=== PATIENT | female | born 1950 | race Caucasian/White ===

== ENCOUNTER 2024-08-17 21:01 | Inpatient (IN) | payer MEDICARE, SELFPAY ==
[2024-08-17 21:35] VITALS: BP 132/84; PULSE 72; RESP 16; TEMP 36.6; O2SAT 95
--- NOTE | 2024-08-17 22:19 | PC.ADMIT ---
PT IS A 74 YEAR OLD, CHINESE SPEAKING FEMALE ADMITTED TO [facility] FROM [facility]. PT WAS BROUGHT TO [facility] BY HER SON, VIKI WHO IS HER HEALTHCARE PROXY (NOT INVOKED AT THIS TIME). PT REPORTS THAT SHE WAS AT HOME WITH HER SON AND GRANDCHILDREN WHEN SHE BENT DOWN AND WAS TRYING TO PICK THINGS UP OFF THE GROUND. WHEN HER SON ASKED WHAT SHE WAS DOING, SHE STATED, THERES MICE AND CATS EVERYWHERE. IM TRYING TO GET RID OF THEM . PT REPORTS THAT SHE DID NOT BELIEVE HER SON/GRANDCHILDREN WHEN THEY TOLD HER THESE WERE NOT REAL BUT AGREED TO GO TO THE HOSPITAL ANYWAYS. PT REPORTS WHEN SHE WAS PUT INTO THE PSYCHIATRIC EMERGENCY POD AT [place] SHE BEGAN SEEING THOUSANDS OF LITTLE MICE ON THE FLOOR WELL DOGS AND [employer]ARS WHICH IS WHEN SHE DECIDED SHE MAY BE EXPERIENCING VISUAL HALLUCINATIONS. PT REPORTS HER FEAR INCREASED WHEN SHE STARTED SEEING ANOTHER PATIENTS BODY DISAPPEAR AT VARIOUS TIMES. PT REPORTS THAT OVER THE PAST 6-7 YEARS SHE HAS HAD EXPERIENCES THAT SHE IS UNCERTAIN IF THEY ARE REAL SUCH SEEING PEOPLE HAVING A CONVERSATION OR BELIEVING SHE SEES A BIRD/ANIMAL/PERSON THEN LOOKS AGAIN AND THEY ARE GONE BUT REPORTS THIS IS THE FIRST TIME THESE VISUAL HALLUCINATIONS HAVE BEEN TO THIS EXTENT. PT REPORTS THAT SHE HEARS CONSTANT MUSIC IN HER HEAD. SHE LIVES WITH HER SON AND GRANDCHILDREN BUT REPORTS INCREASED DIFFICULTY WITH DAILY TASKS DUE TO PAIN. PT REPORTS LOWER BACK PAIN THAT CAUSES NUMBNESS IN HER UPPER LEGS, CAUSING HER TO FALL MULTIPLE TIMES AT HOME. PT REPORTS THAT SHE GETS FREQUENT DIZZY SPELLS. PT HAS A HX OF DIABETES. CURRENTLY ON ANTIDEPRESSANTS FROM PCP BUT [facility]. NO PSYCH PROVIDER OR THERAPIST. REPORTS PASSIVE SI AT TIMES. NO HI. PT FEELS SAFE ON THE UNIT AND REPORTS SHE IS JUST HOPING THIS IS FROM THE UTI . PT IS NOT CURRENTLY ON ANTIBIOTICS FOR HER UTI BUT HAS A HX OF SEVERE UTIS WITH NO ASSOCIATED PSYCH SYMPTOMS. REPORTS POOR SLEEP AT NIGHT, SLEEPING APPROXIMATELY 2-5 HOURS PER NIGHT.
[2024-08-17] MEDS: Insulin Glargine,Hum.rec.anlog 100 UNIT/ML 10 ML VIAL 40 UNIT SUBCUT (22:54)
[2024-08-17 22:55] LABS: Glucose, Whole Blood 128 mg/dL (60-115)
[2024-08-18 07:30] LABS: Glucose, Whole Blood 77 mg/dL (60-115)
[2024-08-18 08:00] VITALS: BP 167/70; PULSE 72; RESP 16; TEMP 36.5; O2SAT 96
[2024-08-18 08:11] LABS: Hemoglobin A1C 165.9677 umol/L; Total Hemoglobin (HGBA1C) 2948.4803 umol/L
--- NOTE | 2024-08-18 08:13 | P.CONHOSP_ITS ---
History of Present Illness Data of Consult Service Date: 08/18/24 Primary Care Provider: Nonstaff Physician HPI Reason for consult: Medical H&P 24-year-old female with a past medical history of hypertension hyperlipidemia, insulin-dependent diabetes, depression, and chronic lower back pain. She was admitted to [facility] after increase visual and auditory hallucination with the past several weeks and unwitnessed fall. Patient was sent to the hospital after she was found on the floor, reports that she seeing kittens on the floor trying to pick them up. In the ED her head CT and CT spine demonstrated no acute findings. Her TSH was slightly elevated at 4.96. She had no anemia, no leukocytosis, UA negative. No metabolic abnormalities. I am she is awake and alert, denies any shortness of breath or chest pain. Reports that she has left last evening, ate breakfast. Her vitals are stable. Review of Systems Review of Systems: Denies any shortness of breath, chest pain, dizziness, lightheadedness, abdominal pain or discomfort, nausea vomiting or diarrhea PMFSH Social History Household Members: Children Household Members Other:: son and grandchildren Housing: House Do you presently have visiting nurse or other home services: No Patient Tobacco Use Status: Never used Tobacco Currently Displaying Signs/Symptoms of Drug Intoxication Withdrawal: No Have you been hit, kicked, punched, or otherwise hurt by someone within the past year? If so, by whom?: No Do you feel safe in your current relationship?: No Current Relationship Is there a partner from a previous relationship who is making you feel unsafe now?: No Are you made to feel afraid or neglected: No Advance Directives: Yes (health care proxy, stef la. not invoked.) Advance Directives Information Provided: No Advance Directives on File: No Do you have thoughts of harming others: None Do you have a plan to hurt others: No Plan Recently lost weight without trying: No Eating poorly because of decreased appetite: No Nutrition Risks: No Nutritional Risk Patient : No : No Poor oral hygiene: No Meds Allergies Allergy/AdvReac Type Severity Reaction Status Date / Time Penicillins Allergy Unknown Unknown Verified 08/17/24 19:55 amitriptyline Allergy Unknown Verified 08/17/24 21:18 Active Medications: Current Medications Acetaminophen (Acetaminophen 325 Mg Tablet) 650 mg PO Q6H PRN PRN Reason: Headache/Pain, Scale 1-10 Al Hydroxide/Mg Hydroxide (Magnesium Hydrox/Alum Hydrox 30 Ml Oral.Susp) 30 ml PO Q6H PRN PRN Reason: Heartburn/Nausea Amlodipine Besylate (Amlodipine Besylate 5 Mg Tablet) 5 mg PO DAILY [facility]; Protocol Atorvastatin Calcium (Atorvastatin Calcium 20 Mg Tablet) 20 mg PO DAILY [facility] Bupropion HCl (Bupropion Hcl Xl 150 Mg Tab.Er.24h) 150 mg PO BID [facility] Gabapentin (Gabapentin 300 Mg Capsule) 300 mg PO TID [facility] Insulin Glargine (Insulin Glargine,Hum.Rec.Anlog 100 Unit/Ml 10 Ml Vial) 40 unit SUBCUT BEDTIME YAZMIN Last Admin: 08/17/24 22:54 Dose: 40 unit Magnesium Hydroxide (Milk Of Magnesia 30 Ml Oral.Susp) 30 ml PO DAILY PRN PRN Reason: Constipation Metoprolol Succinate (Metoprolol Succinate Er 100 Mg Tab.Er.24h) 100 mg PO DAILY [facility]; Protocol Temazepam (Temazepam 15 Mg Capsule) 30 mg PO BEDTIME PRN PRN Reason: insomnia Last Admin: 08/17/24 22:54 Dose: 30 mg Trazodone HCl (Trazodone Hcl 50 Mg Tablet) 50 mg PO BEDTIME MRX1 PRN PRN Reason: Insomnia Venlafaxine HCl (Venlafaxine Hcl Er 150 Mg Cap.Er.24h) 150 mg PO DAILY [facility] Home Medications ?Medication ?Instructions ?Recorded ?Confirmed ?Last Taken ?Type amlodipine 5 mg tablet 5 mg PO DAILY 08/17/2408/1708/16/24 History atorvastatin 20 mg tablet 20 mg PO DAILY 08/17/24 0704/1208/16/24 History bupropion HCl 150 mg tablet,12 hr 150 mg PO BID 08/17/24 08/16/24 History sustained-release gabapentin 300 mg capsule 300 mg PO TID 08/17/2408/1708/16/24 History insulin glargine 100 unit/mL (3 40 unit subcut BEDTIME 08/17/24 08/17/24 08/16/24 History mL) subcutaneous pen (Lantus Solostar U-100 Insulin) metoprolol succinate 100 mg 100 mg PO DAILY 08/17/24 0 08/17/24 08/16/24 History tablet,extended release 24 hr triazolam 0.25 mg tablet 0.5 mg PO BEDTIME PRN Insomn ia 08/17/24 08/17/24 08/16/24 History venlafaxine 150 mg 150 mg PO DAILY 08/17/2404/1208/16/24 History capsule,extended release 24 hr Physical Exam Vital Signs and Narrative: Vital Signs: Last Vital Signs Temp 97.9 F 08/17/24 21:35 Pulse 72 08/17/24 21:35 Resp 16 08/17/24 21:35 BP 132/84 08/17/24 21:35 Pulse Ox 95 08/17/24 21:35 O2 Del Method Room Air 08/17/24 21:35 Alert and oriented X3, able to give good history. Neuro: CN II-X11 intact, no deficits, visual acuity intact EYES: PERRLA, EOM intact ENT: Hearing intact, lips moist. Cardiac: S1 S2 RRR, No ectopy Pulmonary: lungs clear to auscultation, No increased WOB. Abdominal: BS active in all 4 quadrants, no guarding or tenderness. Obese abdomen MSK: Strength 5/5 upper and lower extremities : Deferred Extremities: No edema in lower extremities. Psych: mood stable, Quiet and cooperative. Skin: Warm and dry, Intact Results Labs Labs: Laboratory Results - last 24 hr 08/17/24 08/18/24 08/18/24 22:48 07:23 07:26 POC Glucose 128 H 77 Estimat Average Glucose 163 Hemoglobin A1c % 7.3 H Assessment and Plan (1) HTN (hypertension): Status: Acute Plan 74-year-old female with past medical history of depression, hyperlipidemia, hypertension, chronic low back pain, insulin-dependent type 2 diabetes admitted to [facility] after she experienced visual auditory hallucinations. Depression/visual and auditory hallucination Cleared for medical admission Plan per psychiatric team Hypertension/hyperlipidemia Continue Norvasc, Lipitor, and metoprolol 100 mg extended release. Blood pressure is under goal Continue to monitor blood pressures and adjust medications as needed Chronic low back pain Continue gabapentin Insulin-dependent type 2 diabetes Continue Lantus Recent A1c 7.3. Lipid panel within normal limits. A1c within acceptable range, will continue same regime Thank you for allowing me to participate in the care of this patient. Will follow as needed. Please reconsult of any acute concerns or issues arise
[2024-08-18 08:14] LABS: Cholesterol 123 mg/dL (<200); HDL Cholesterol 43 mg/dL (>40); Magnesium 2.1 mg/dL (1.6-2.6); Triglycerides 95 mg/dL (<150)
[2024-08-18 08:33] LABS: Free T4 (Free Thyroxine) 1.01 ng/dL (0.71-1.85); Thyroid Stimulating Hormone 3.12 uIU/mL (0.32-4.0)
[2024-08-18 08:47] LABS: Folate 8.5 ng/mL (> or = 4.0); Vitamin B12 208 pg/mL (200-900)
[2024-08-18] MEDS: Metoprolol Succinate ER 100 MG TAB.ER.24H PO (09:17)
[2024-08-18] MEDS: buPROPion HCl XL 150 MG TAB.ER.24H PO ×2 (09:17→20:29)
[2024-08-18] MEDS: Venlafaxine HCl ER 150 MG CAP.ER.24H PO (09:17)
--- NOTE | 2024-08-18 10:09 | HO.PSYADMNOT ---
HPI Date of Service: 08/18/24 Chief Complaint: Delusional Disorder; Depression Unspecified Sources of Information: patient interviewed, chart reviewed and crisis/core team assessment reviewed HPI Subjective Notes: Conditional Voluntary and 3 Day Narrative: Patient is a 74-year-old female with history of AVH who presents for worsening visual hallucinations causing distress. Patient reports that chronically, for the past 5 or so years, she hears music all the time which can be ?bothersome and makes it hard for her to concentrate. For the same duration, Patient also sees various people doing things however this does not bother her and she knows it is just her mind playing tricks on her, that it is not real. This past week, patient had additional hallucinations and says she started seeing kittens in the house even though they do not have a CAT; she then started seeing rats but small ones and dogs that would expand in size. She called in her son who lives with her who said there at all however she did not believe him because she could see 2000 rats-little ones... He wanted her to go to the hospital because he said I was not making sense..and he was worried i had a UTI... (patient endorses increased urinary frequency and urgency and said today she did urinate on herself on the way to the bathroom; denies any urinary discomfort). At the hospital, she continued to see animals but was comforted when staff there said it was not true and she started to agree that perhaps they were hallucinations. Patient said she stopped seeing animals but then at the hospital, in her room saw a girl in my room, talking on the phone and part of her body started to disappear... Than half of her body came back... She was crying on the phone and I thought it was my fault that the girl was gone.. However she said staff again helped her realize this was just her mind playing tricks on her. Patient says that she would like medication if it would help her stop hearing music all the time; she denies any active SI but says sometimes she gets depressed missing her and will sometimes wish she were , though she says this feeling is short-lived. Past Psychiatric History: Denies any history of psychiatric admissions Medical Evaluation Reviewed: Yes (Discussed with hospitalist MIA about starting antibiotics empirically given that patient is symptomatic for UTI, while labs are processing) [facility] Medical History (Updated 08/18/24 @ 16:55 by Sebastian Mejia MD) Depression Hallucinations Family History: Defer Social History: Patient lives in her own home; her son and his 2 kids live with her and are supportive Patient's in 2018 and she continues to miss him Substance History: Deferred Trauma History: Deferred Diagnostics Vital Signs (24Hr): Vital Signs - 24 hr 08/17/24 21:35 Temperature 97.9 F Pulse Rate 72 Respiratory Rate 16 Blood Pressure 132/84 Pulse Oximetry 95 Oxygen Delivery Method Room Air Labs Labs: Laboratory Results - last 48 hr 08/17/24 08/18/24 08/18/24 22:48 07:22 07:23 POC Glucose 128 H Estimat Average Glucose 163 Hemoglobin A1c % 7.3 H Magnesium 2.1 Triglycerides 95 Cholesterol 123 LDL Cholesterol, Calc 61 HDL Cholesterol 43 Vitamin B12 208 Folate 8.5 TSH 3.12 Free T4 1.01 08/18/24 07:26 POC Glucose 77 Estimat Average Glucose Hemoglobin A1c % Magnesium Triglycerides Cholesterol LDL Cholesterol, Calc HDL Cholesterol Vitamin B12 Folate TSH Free T4 Meds/Allergies Meds Home Medications ?Medication ?Instructions ?Recorded ?Confirmed ?Type amlodipine 5 mg tablet 5 mg PO DAILY 08/17/24 08/17/24 History atorvastatin 20 mg tablet 20 mg PO DAILY 08/17/24 08/17/24 History bupropion HCl 150 mg tablet,12 hr 150 mg PO BID 08/17/24 08/17/24 History sustained-release gabapentin 300 mg capsule 300 mg PO TID 08/17/24 08/17/24 History insulin glargine 100 unit/mL (3 40 unit subcut BEDTIME 08/17/24 08/17/24 History mL) subcutaneous pen (Lantus Solostar U-100 Insulin) metoprolol succinate 100 mg 100 mg PO DAILY 08/17/24 08/17/24 History tablet,extended release 24 hr triazolam 0.25 mg tablet 0.5 mg PO BEDTIME PRN Insomnia 08/17/24 08/17/24 History venlafaxine 150 mg 150 mg PO DAILY 08/17/24 08/17/24 History capsule,extended release 24 hr Allergies Allergies Allergy/AdvReac Type Severity Reaction Status Date / Time Penicillins Allergy Unknown Unknown Verified 08/17/24 19:55 amitriptyline Allergy Unknown Verified 08/17/24 21:18 Mental Status Exam Mental Status Exam Narrative: Pt is alert and oriented; behavior is cooperative, friendly and calm; patient is not in distress; dressed in casual attire with unkempt hair but adequate hygiene; mood is described as with some depression and affect congruent; eye contact appropriate; Speech is normal rate, volume and prosody and not pressured; perhaps some psychomotor retardation present; thought process is organized and goal directed; Thought content is on AVH; otherwise pertinent to relevant topics; some delusional ideation regarding whether not VH is real but otherwise no further delusional thinking expressed; intermittent passive wish; denies any SI/HI. Chronic AH of music; chronic VH of people (VH of animals seems to have dissipated). Patients insight and judgment impaired Assessment & Plan Assessment & Plan (1) Hallucinations: Status: Acute Code(s): R44.3 - Hallucinations, unspecified (2) UTI (urinary tract infection): Status: Acute Code(s): N39.0 - Urinary tract infection, site not specified (3) Depression: Status: Acute Code(s): F32.A - Depression, unspecified Plan HPI: Patient is a 74-year-old female with history of AVH who presents for worsening visual hallucinations causing distress. Patient reports that chronically, for the past 5 or so years, she hears music all the time which can be ?bothersome and makes it hard for her to concentrate. For the same duration, Patient also sees various people doing things however this does not bother her and she knows it is just her mind playing tricks on her, that it is not real. This past week, patient had additional hallucinations and says she started seeing kittens in the house even though they do not have a CAT; she then started seeing rats but small ones and dogs that would expand in size. She called in her son who lives with her who said there at all however she did not believe him because she could see 2000 rats-little ones... He wanted her to go to the hospital because he said I was not making sense..and he was worried i had a UTI... (patient endorses increased urinary frequency and urgency and said today she did urinate on herself on the way to the bathroom; denies any urinary discomfort). At the hospital, she continued to see animals but was comforted when staff there said it was not true and she started to agree that perhaps they were hallucinations. Patient said she stopped seeing animals but then at the hospital, in her room saw a girl in my room, talking on the phone and part of her body started to disappear... Than half of her body came back... She was crying on the phone and I thought it was my fault that the girl was gone.. However she said staff again helped her realize this was just her mind playing tricks on her. Patient says that she would like medication if it would help her stop hearing music all the time; she denies any active SI but says sometimes she gets depressed missing her and will sometimes wish she were , though she says this feeling is short-lived. Impression/Clinical reasoning: Patient reports chronic AVH with auditory hallucinations of music bothering her for which she would like medications; med rec without any current antipsychotic medication. Seems that patient may have a UTI which has exacerbated her chronic symptoms. Patient also expressed some ongoing depression with intermittent passive wish though no active SI. She lives with her son and grandkids and said she would never consider taking her life. DX: Will leave at hallucinations for now; no overt delusional content expressed other than wondering if VH is real; will further clarify with collateral -repeat UA ordered; discussed with hospitalist about treating empirically while waiting for results -will start on low-dose Risperdal to see if can help with AH and maybe VH -consider dementia workup, Lewy body? Imaging Engineer did not assess for parkinsonian symptoms -may consider increasing Effexor for some continued sadness and intermittent passive wish Plan: CV Q 15 minute checks Start Risperdal 0.25 mg b.i.d. Will add low-dose trazodone as a p.r.n. for insomnia Ordered CBC, CMP; UA pending; consult to hospitalist regarding whether to empirically start ABX Continue other home medications Gather collateral Patient educated on: diagnosis, medication risk/benefits and medical condition Informed Consent: understands and further education needed Reason for continued inpatient stay Substantial Risk for: rapid decompensation Statement Statement: I have reviewed the history and physical and performed a pertinent examination on my patient. No changes have occurred unless specified. If the History and Physical was not performed prior to admission, the Hospitalist's service will be consulted for completing the admission physical. Time Spent With Patient Time: Total time managing care of this patient today ____ minutes.
[2024-08-18 20:00] VITALS: BP 124/90; PULSE 66; TEMP 36.5; O2SAT 97
[2024-08-18] MEDS: Insulin Glargine,Hum.rec.anlog 100 UNIT/ML 10 ML VIAL 40 UNIT SUBCUT (20:32)
[2024-08-19 06:03] LABS: Appearance Urine Clear; Glucose Urine UA Negative (Negative); PH 5.5 (5.0-9.0); Specific Gravity - Urine 1.010 (1.005-1.025); UMIC TRIGGER UACC YES
[2024-08-19 06:45] LABS: UACC Culture Trigger YES
[2024-08-19 07:33] LABS: MANUAL DIFF FLAG NO
[2024-08-19 07:54] LABS: Hematocrit 36.5 % (37.0-47.0); Hemoglobin 11.8 g/dl (12.0-16.0); Imm Gran Abs Auto 0.03 X10*3/uL (0.00-0.03); Imm Gran Pct Auto 0.4 % (0.0-0.4); Lymphocytes Absolute Auto 1.8 X10*3/uL (1.2-4.9); Mean Corpuscular HGB Conc 32.3 g/dl (31.0-35.0); Mean Corpuscular Hemoglobin 29.4 pg (27.0-33.0); Mean Corpuscular Volume 90.8 fL (80.0-98.0); NRBC Abs Auto 0.000 X10*3/uL (0.0-0.012); NRBC Pct Auto 0.0 /100WBC (0.0-0.2); Platelet Count 328 X10*3/uL (160-400); Red Blood Count 4.02 X10*6/uL (4.20-5.50); White Blood Count 6.7 X10*3/uL (4.8-10.8)
[2024-08-19 07:57] LABS: Alanine Aminotransferase 14 U/L (0-31); Albumin Level 4.1 g/dL (3.5-5.0); Alkaline Phosphatase 129 U/L (39-117); Anion Gap 12 (12-20); Aspartate Amino Transferase 22 U/L (5-31); Blood Urea Nitrogen 24 mg/dL (9-16); Calcium 9.1 mg/dL (8.4-10.2); Carbon Dioxide 26 mmol/L (22-29); Chloride 109 mmol/L (96-108); Creatinine Clr Calc Pharmacy 33.6; Estimated Glomerular Filt Rate 37; Potassium 5.2 mmol/L (3.3-5.1); Sodium 142 mmol/L (135-145); Total Protein 7.0 g/dL (6.5-8.0)
[2024-08-19 08:00] VITALS: BP 127/73; PULSE 58; RESP 16; TEMP 36.5; O2SAT 97
[2024-08-19] MEDS: buPROPion HCl XL 150 MG TAB.ER.24H PO ×2 (08:56→21:18)
[2024-08-19] MEDS: Venlafaxine HCl ER 150 MG CAP.ER.24H PO (08:56)
[2024-08-19] MEDS: Metoprolol Succinate ER 100 MG TAB.ER.24H PO (08:58)
--- NOTE | 2024-08-19 15:47 | PM.EVENT ---
Event Note Date of Service: 08/19/24 Event Note: Pt is a 74-year-old female admitted to [facility] with hospitalist consult placed for increased urinary frequency/urgency with question of UTI. UA appears negative for UTI. No indication to treat with antibiotics at this time. Follow urine culture and treat accordingly. Time Spent With Patient Time: Total time managing care of this patient today ____ minutes.
[2024-08-19 20:00] VITALS: BP 150/65; PULSE 68; TEMP 36.6; O2SAT 97
--- NOTE | 2024-08-19 20:50 | P.PNPSI_ITS ---
Subjective Subjective Date of Service: 08/19/24 Reason For Visit: Delusional Disorder; Depression Unspecified Interim History: no questions or complaints. informed of plan for daily POC and to make restoril scheduled. per staff, starting rexulti today. poor sleep overnight as she did not get restoril, which is ordered PRN here but which she takes nightly at home. Mental Status Exam Mental Status Exam Narrative: Pt is alert and oriented; behavior is cooperative, friendly and calm; patient is not in distress; dressed in casual attire with unkempt hair but adequate hygiene; mood is described as with some depression and affect congruent; eye contact appropriate; Speech is normal rate, volume and prosody and not pressured; perhaps some psychomotor retardation present; thought process is organized and goal directed; Thought content is on AVH; otherwise pertinent to relevant topics; some delusional ideation regarding whether not VH is real but otherwise no further delusional thinking expressed; intermittent passive wish; denies any SI/HI. Chronic AH of music; chronic VH of people (VH of animals seems to have dissipated). Patients insight and judgment impaired Diagnostics Vital Signs (24Hr): Vital Signs - 24 hr 08/19/24 08:00 Temperature 97.7 F Pulse Rate 58 Respiratory Rate 16 Blood Pressure 127/73 Pulse Oximetry 97 Oxygen Delivery Method Room Air Labs 08/19/24 07:29 08/19/24 07:29 Labs: Laboratory Results - last 48 hr 08/17/24 08/18/24 08/18/24 22:48 07:22 07:23 WBC RBC Hgb Hct MCV MCH MCHC RDW Plt Count MPV Immature Gran % (Auto) Neut % (Auto) Lymph % (Auto) [place] % (Auto) Eos % (Auto) Baso % (Auto) Lymph # (Auto) [place] # (Auto) Eos # (Auto) Baso # (Auto) Abs Immat Gran (auto) Absolute Neuts (auto) Absolute Nucleated RBC Nucleated RBC % (auto) Sodium Potassium Chloride Carbon Dioxide Anion Gap BUN Creatinine Estim Creat Clear Calc Estimated GFR POC Glucose 128 H Random Glucose Estimat Average Glucose 163 Hemoglobin A1c % 7.3 H Calcium Magnesium 2.1 Total Bilirubin AST ALT Alkaline Phosphatase Total Protein Albumin Triglycerides 95 Cholesterol 123 LDL Cholesterol, Calc 61 HDL Cholesterol 43 Vitamin B12 208 Folate 8.5 TSH 3.12 Free T4 1.01 Urine Color Urine Appearance Urine pH Ur Specific [place] Urine Protein Urine Glucose (UA) Urine Ketones Urine Blood Urine Nitrite Ur Leukocyte Esterase Urine RBC Urine WBC Ur Squamous Epith Cells Urine Bacteria Hyaline Casts 08/18/24 08/19/24 08/19/24 07:26 05:37 07:29 WBC 6.7 RBC 4.02 L Hgb 11.8 L Hct 36.5 L MCV 90.8 MCH 29.4 MCHC 32.3 RDW 13.2 Plt Count 328 MPV 10.8 Immature Gran % (Auto) 0.4 Neut % (Auto) 61.8 Lymph % (Auto) 26.3 [place] % (Auto) 6.9 Eos % (Auto) 3.6 Baso % (Auto) 1.0 Lymph # (Auto) 1.8 [place] # (Auto) 0.5 Eos # (Auto) 0.2 Baso # (Auto) 0.1 Abs Immat Gran (auto) 0.03 Absolute Neuts (auto) 4.1 Absolute Nucleated RBC 0.000 Nucleated RBC % (auto) 0.0 Sodium 142 Potassium 5.2 H Chloride 109 H Carbon Dioxide 26 Anion Gap 12 BUN 24 H Creatinine 1.41 H Estim Creat Clear Calc 33.6 Estimated GFR 37 POC Glucose 77 Random Glucose 96 Estimat Average Glucose Hemoglobin A1c % Calcium 9.1 Magnesium Total Bilirubin 0.5 AST 22 ALT 14 Alkaline Phosphatase 129 H Total Protein 7.0 Albumin 4.1 Triglycerides Cholesterol LDL Cholesterol, Calc HDL Cholesterol Vitamin B12 Folate TSH Free T4 Urine Color Yellow Urine Appearance Clear Urine pH 5.5 Ur Specific [place] 1.010 Urine Protein Trace Urine Glucose (UA) Negative Urine Ketones Negative Urine Blood Negative Urine Nitrite Negative Ur Leukocyte Esterase Trace H Urine RBC 0-2 Urine WBC 0-5 Ur Squamous Epith Cells 3-5 Urine Bacteria Trace Hyaline Casts 0-2 Medications Medications Current Medications Acetaminophen (Acetaminophen 325 Mg Tablet) 650 mg PO Q6H PRN PRN Reason: Headache/Pain, Scale 1-10 Al Hydroxide/Mg Hydroxide (Magnesium Hydrox/Alum Hydrox 30 Ml Oral.Susp) 30 ml PO Q6H PRN PRN Reason: Heartburn/Nausea Amlodipine Besylate (Amlodipine Besylate 5 Mg Tablet) 5 mg PO DAILY [facility]; Protocol Last Admin: 08/19/24 08:56 Dose: 5 mg Atorvastatin Calcium (Atorvastatin Calcium 20 Mg Tablet) 20 mg PO DAILY [facility] Last Admin: 08/19/24 08:59 Dose: 20 mg Bupropion HCl (Bupropion Hcl Xl 150 Mg Tab.Er.24h) 150 mg PO BID [facility] Last Admin: 08/19/24 08:56 Dose: 150 mg Gabapentin (Gabapentin 300 Mg Capsule) 300 mg PO TID [facility] Last Admin: 08/19/24 15:03 Dose: 300 mg Insulin Glargine (Insulin Glargine,Hum.Rec.Anlog 100 Unit/Ml 10 Ml Vial) 40 unit SUBCUT BEDTIME [facility] Last Admin: 08/18/24 20:32 Dose: 40 unit Magnesium Hydroxide (Milk Of Magnesia 30 Ml Oral.Susp) 30 ml PO DAILY PRN PRN Reason: Constipation Metoprolol Succinate (Metoprolol Succinate Er 100 Mg Tab.Er.24h) 100 mg PO DAILY [facility]; Protocol Last Admin: 08/19/24 08:58 Dose: 100 mg Risperidone (Risperidone 0.25 Mg Tablet) 0.25 mg PO BID [facility] Last Admin: 08/19/24 08:56 Dose: 0.25 mg Temazepam (Temazepam 15 Mg Capsule) 30 mg PO BEDTIME [facility] Trazodone HCl (Trazodone Hcl 25 Mg Halftab) 25 mg PO BEDTIME MRX1 PRN PRN Reason: Insomnia Venlafaxine HCl (Venlafaxine Hcl Er 150 Mg Cap.Er.24h) 150 mg PO DAILY [facility] Last Admin: 08/19/24 08:56 Dose: 150 mg Allergies Allergies Allergy/AdvReac Type Severity Reaction Status Date / Time Penicillins Allergy Unknown Unknown Verified 08/17/24 19:55 amitriptyline Allergy Unknown Verified 08/17/24 21:18 Assessment & Plan Assessment & Plan (1) Hallucinations: Status: Acute Code(s): R44.3 - Hallucinations, unspecified (2) UTI (urinary tract infection): Status: Acute Code(s): N39.0 - Urinary tract infection, site not specified (3) Depression: Status: Acute Code(s): F32.A - Depression, unspecified Plan HPI: Patient is a 74-year-old female with history of AVH who presents for worsening visual hallucinations causing distress. Patient reports that chronically, for the past 5 or so years, she hears music all the time which can be ?bothersome and makes it hard for her to concentrate. For the same duration, Patient also sees various people doing things however this does not bother her and she knows it is just her mind playing tricks on her, that it is not real. This past week, patient had additional hallucinations and says she started seeing kittens in the house even though they do not have a CAT; she then started seeing rats but small ones and dogs that would expand in size. She called in her son who lives with her who said there at all however she did not believe him because she could see 2000 rats-little ones... He wanted her to go to the hospital because he said I was not making sense..and he was worried i had a UTI... (patient endorses increased urinary frequency and urgency and said today she did urinate on herself on the way to the bathroom; denies any urinary discomfort). At the hospital, she continued to see animals but was comforted when staff there said it was not true and she started to agree that perhaps they were hallucinations. Patient said she stopped seeing animals but then at the hospital, in her room saw a girl in my room, talking on the phone and part of her body started to disappear... Than half of her body came back... She was crying on the phone and I thought it was my fault that the girl was gone.. However she said staff again helped her realize this was just her mind playing tricks on her. Patient says that she would like medication if it would help her stop hearing music all the time; she denies any active SI but says sometimes she gets depressed missing her and will sometimes wish she were , though she says this feeling is short-lived. Impression/Clinical reasoning: Patient reports chronic AVH with auditory hallucinations of music bothering her for which she would like medications; med rec without any current antipsychotic medication. Seems that patient may have a UTI which has exacerbated her chronic symptoms. Patient also expressed some ongoing depression with intermittent passive wish though no active SI. She lives with her son and grandkids and said she would never consider taking her life. DX: Will leave at hallucinations for now; no overt delusional content expressed other than wondering if VH is real; will further clarify with collateral -repeat UA ordered; discussed with hospitalist about treating empirically while waiting for results -will start on low-dose Risperdal to see if can help with AH and maybe VH -consider dementia workup, Lewy body? Deputy Juvenile Officer did not assess for parkinsonian symptoms -may consider increasing Effexor for some continued sadness and intermittent passive wish Plan: CV Q 15 minute checks Start Risperdal 0.25 mg b.i.d. Will add low-dose trazodone as a p.r.n. for insomnia Ordered CBC, CMP; UA pending; consult to hospitalist regarding whether to empirically start ABX Continue other home medications Gather collateral 08/19: elevated BUN/Cr and HbA1c noted. per hospitalist, no UTI, no antibx indicated. add daily POC an change restoril to scheduled, otherwise continue current mgmt. Reason for continued inpatient stay Substantial Risk for: inability to function Time Spent With Patient Time: Total time managing care of this patient today ____ minutes.
[2024-08-19] MEDS: Insulin Glargine,Hum.rec.anlog 100 UNIT/ML 10 ML VIAL 40 UNIT SUBCUT (21:21)
[2024-08-20 06:52] LABS: Glucose, Whole Blood 59 mg/dL (60-115)
[2024-08-20 08:00] VITALS: BP 129/59; PULSE 68; RESP 18; TEMP 35.9; O2SAT 98
[2024-08-20] MEDS: Metoprolol Succinate ER 100 MG TAB.ER.24H PO (08:45)
[2024-08-20] MEDS: buPROPion HCl XL 150 MG TAB.ER.24H PO ×2 (08:46→20:44)
[2024-08-20] MEDS: Venlafaxine HCl ER 150 MG CAP.ER.24H PO (08:46)
[2024-08-20 09:14] LABS: Glucose, Whole Blood 192 mg/dL (60-115)
--- NOTE | 2024-08-20 12:51 | HO.PSYCHPN ---
Subjective Subjective Date of Service: 08/20/24 Reason For Visit: Delusional Disorder; Depression Unspecified Interim History: no complaints, cheery and social. discussed hypoglycemia from this morning and elevated HbA1c, renal function labs. informed we will recheck BMP tomorrow. per staff, slept well, FSBS 59 this morning. no issues otherwise. Mental Status Exam Mental Status Exam Narrative: Pt is alert and oriented; behavior is cooperative, friendly and calm; patient is not in distress; dressed in casual attire with unkempt hair but adequate hygiene; mood is described as euthymic; eye contact appropriate; Speech is normal rate, volume and prosody and not pressured; thought process is organized and goal directed; Thought content is on decreasing AVH and medical status; otherwise pertinent to relevant topics; no SI/HI expressed. Chronic AH of music; chronic VH decreasing. Patients insight and judgment improving. Diagnostics Vital Signs (24Hr): Vital Signs - 24 hr 08/19/24 20:00 08/20/24 08:00 Temperature 97.9 F 96.7 F L Pulse Rate 68 68 Respiratory Rate 18 Blood Pressure 150/65 H 129/59 L Pulse Oximetry 97 98 Oxygen Delivery Method Room Air Room Air Labs 08/19/24 07:29 08/19/24 07:29 Labs: Laboratory Results - last 48 hr 08/19/24 08/19/24 08/20/24 05:37 07:29 06:42 WBC 6.7 RBC 4.02 L Hgb 11.8 L Hct 36.5 L MCV 90.8 MCH 29.4 MCHC 32.3 RDW 13.2 Plt Count 328 MPV 10.8 Immature Gran % (Auto) 0.4 Neut % (Auto) 61.8 Lymph % (Auto) 26.3 [place] % (Auto) 6.9 Eos % (Auto) 3.6 Baso % (Auto) 1.0 Lymph # (Auto) 1.8 [place] # (Auto) 0.5 Eos # (Auto) 0.2 Baso # (Auto) 0.1 Abs Immat Gran (auto) 0.03 Absolute Neuts (auto) 4.1 Absolute Nucleated RBC 0.000 Nucleated RBC % (auto) 0.0 Sodium 142 Potassium 5.2 H Chloride 109 H Carbon Dioxide 26 Anion Gap 12 BUN 24 H Creatinine 1.41 H Estim Creat Clear Calc 33.6 Estimated GFR 37 POC Glucose 59 L* Random Glucose 96 Calcium 9.1 Total Bilirubin 0.5 AST 22 ALT 14 Alkaline Phosphatase 129 H Total Protein 7.0 Albumin 4.1 Urine Color Yellow Urine Appearance Clear Urine pH 5.5 Ur Specific [place] 1.010 Urine Protein Trace Urine Glucose (UA) Negative Urine Ketones Negative Urine Blood Negative Urine Nitrite Negative Ur Leukocyte Esterase Trace H Urine RBC 0-2 Urine WBC 0-5 Ur Squamous Epith Cells 3-5 Urine Bacteria Trace Hyaline Casts 0-2 08/20/24 09:09 WBC RBC Hgb Hct MCV MCH MCHC RDW Plt Count MPV Immature Gran % (Auto) Neut % (Auto) Lymph % (Auto) [place] % (Auto) Eos % (Auto) Baso % (Auto) Lymph # (Auto) [place] # (Auto) Eos # (Auto) Baso # (Auto) Abs Immat Gran (auto) Absolute Neuts (auto) Absolute Nucleated RBC Nucleated RBC % (auto) Sodium Potassium Chloride Carbon Dioxide Anion Gap BUN Creatinine Estim Creat Clear Calc Estimated GFR POC Glucose 192 H Random Glucose Calcium Total Bilirubin AST ALT Alkaline Phosphatase Total Protein Albumin Urine Color Urine Appearance Urine pH Ur Specific [place] Urine Protein Urine Glucose (UA) Urine Ketones Urine Blood Urine Nitrite Ur Leukocyte Esterase Urine RBC Urine WBC Ur Squamous Epith Cells Urine Bacteria Hyaline Casts Medications Medications Current Medications Acetaminophen (Acetaminophen 325 Mg Tablet) 650 mg PO Q6H PRN PRN Reason: Headache/Pain, Scale 1-10 Al Hydroxide/Mg Hydroxide (Magnesium Hydrox/Alum Hydrox 30 Ml Oral.Susp) 30 ml PO Q6H PRN PRN Reason: Heartburn/Nausea Amlodipine Besylate (Amlodipine Besylate 5 Mg Tablet) 5 mg PO DAILY [facility]; Protocol Last Admin: 08/20/24 08:46 Dose: 5 mg Atorvastatin Calcium (Atorvastatin Calcium 20 Mg Tablet) 20 mg PO DAILY [facility] Last Admin: 08/20/24 08:46 Dose: 20 mg Bupropion HCl (Bupropion Hcl Xl 150 Mg Tab.Er.24h) 150 mg PO BID [facility] Last Admin: 08/20/24 08:46 Dose: 150 mg Gabapentin (Gabapentin 300 Mg Capsule) 300 mg PO TID [facility] Last Admin: 08/20/24 08:46 Dose: 300 mg Insulin Glargine (Insulin Glargine,Hum.Rec.Anlog 100 Unit/Ml 10 Ml Vial) 40 unit SUBCUT BEDTIME [facility] Last Admin: 08/19/24 21:21 Dose: 40 unit Magnesium Hydroxide (Milk Of Magnesia 30 Ml Oral.Susp) 30 ml PO DAILY PRN PRN Reason: Constipation Metoprolol Succinate (Metoprolol Succinate Er 100 Mg Tab.Er.24h) 100 mg PO DAILY [facility]; Protocol Last Admin: 08/20/24 08:45 Dose: 100 mg Risperidone (Risperidone 0.25 Mg Tablet) 0.25 mg PO BID [facility] Last Admin: 08/20/24 08:46 Dose: 0.25 mg Temazepam (Temazepam 15 Mg Capsule) 30 mg PO BEDTIME [facility] Last Admin: 08/19/24 21:18 Dose: 30 mg Trazodone HCl (Trazodone Hcl 25 Mg Halftab) 25 mg PO BEDTIME MRX1 PRN PRN Reason: Insomnia Venlafaxine HCl (Venlafaxine Hcl Er 150 Mg Cap.Er.24h) 150 mg PO DAILY [facility] Last Admin: 08/20/24 08:46 Dose: 150 mg Allergies Allergies Allergy/AdvReac Type Severity Reaction Status Date / Time Penicillins Allergy Unknown Unknown Verified 08/17/24 19:55 amitriptyline Allergy Unknown Verified 08/17/24 21:18 Assessment & Plan Assessment & Plan (1) Hallucinations: Status: Acute Code(s): R44.3 - Hallucinations, unspecified (2) UTI (urinary tract infection): Status: Acute Code(s): N39.0 - Urinary tract infection, site not specified (3) Depression: Status: Acute Code(s): F32.A - Depression, unspecified Plan HPI: Patient is a 74-year-old female with history of AVH who presents for worsening visual hallucinations causing distress. Patient reports that chronically, for the past 5 or so years, she hears music all the time which can be ?bothersome and makes it hard for her to concentrate. For the same duration, Patient also sees various people doing things however this does not bother her and she knows it is just her mind playing tricks on her, that it is not real. This past week, patient had additional hallucinations and says she started seeing kittens in the house even though they do not have a CAT; she then started seeing rats but small ones and dogs that would expand in size. She called in her son who lives with her who said there at all however she did not believe him because she could see 2000 rats-little ones... He wanted her to go to the hospital because he said I was not making sense..and he was worried i had a UTI... (patient endorses increased urinary frequency and urgency and said today she did urinate on herself on the way to the bathroom; denies any urinary discomfort). At the hospital, she continued to see animals but was comforted when staff there said it was not true and she started to agree that perhaps they were hallucinations. Patient said she stopped seeing animals but then at the hospital, in her room saw a girl in my room, talking on the phone and part of her body started to disappear... Than half of her body came back... She was crying on the phone and I thought it was my fault that the girl was gone.. However she said staff again helped her realize this was just her mind playing tricks on her. Patient says that she would like medication if it would help her stop hearing music all the time; she denies any active SI but says sometimes she gets depressed missing her and will sometimes wish she were , though she says this feeling is short-lived. Impression/Clinical reasoning: Patient reports chronic AVH with auditory hallucinations of music bothering her for which she would like medications; med rec without any current antipsychotic medication. Seems that patient may have a UTI which has exacerbated her chronic symptoms. Patient also expressed some ongoing depression with intermittent passive wish though no active SI. She lives with her son and grandkids and said she would never consider taking her life. DX: Will leave at hallucinations for now; no overt delusional content expressed other than wondering if VH is real; will further clarify with collateral -repeat UA ordered; discussed with hospitalist about treating empirically while waiting for results -will start on low-dose Risperdal to see if can help with AH and maybe VH -consider dementia workup, Lewy body? Software Requirements Engineer did not assess for parkinsonian symptoms -may consider increasing Effexor for some continued sadness and intermittent passive wish Plan: CV Q 15 minute checks Start Risperdal 0.25 mg b.i.d. Will add low-dose trazodone as a p.r.n. for insomnia Ordered CBC, CMP; UA pending; consult to hospitalist regarding whether to empirically start ABX Continue other home medications Gather collateral 08/19: elevated BUN/Cr and HbA1c noted. per hospitalist, no UTI, no antibx indicated. add daily POC an change restoril to scheduled, otherwise continue current mgmt. 08/20: mood improved, AVH improving. FSBS 59 this morning, but HbA1c 7.3; continue current insulin orders and trend morning FSBS for now. check BMP tomorrow for F/U on K and BUN/Cr. otherwise continue current mgmt. Reason for continued inpatient stay Substantial Risk for: inability to function and rapid decompensation Time Spent With Patient Time: Total time managing care of this patient today ____ minutes.
[2024-08-20 20:00] VITALS: BP 156/68; PULSE 65; RESP 15; TEMP 36.8; O2SAT 98
[2024-08-20] MEDS: Insulin Glargine,Hum.rec.anlog 100 UNIT/ML 10 ML VIAL 40 UNIT SUBCUT (20:43)
[2024-08-21 06:53] LABS: Glucose, Whole Blood 48 mg/dL (60-115)
[2024-08-21 08:00] VITALS: BP 110/53; PULSE 98; RESP 18; TEMP 37; O2SAT 98
[2024-08-21 08:31] LABS: Anion Gap 14 (12-20); Blood Urea Nitrogen 31 mg/dL (9-16); Calcium 9.0 mg/dL (8.4-10.2); Carbon Dioxide 22 mmol/L (22-29); Chloride 111 mmol/L (96-108); Creatinine Clr Calc Pharmacy 32.2; Estimated Glomerular Filt Rate 35; Potassium 4.7 mmol/L (3.3-5.1); Sodium 142 mmol/L (135-145)
[2024-08-21] MEDS: Venlafaxine HCl ER 150 MG CAP.ER.24H PO (08:31)
[2024-08-21] MEDS: Metoprolol Succinate ER 100 MG TAB.ER.24H PO (08:31)
[2024-08-21] MEDS: buPROPion HCl XL 150 MG TAB.ER.24H PO ×2 (08:32→20:38)
[2024-08-21 08:41] LABS: Glucose, Whole Blood 381 mg/dL (60-115)
--- NOTE | 2024-08-21 09:35 | HO.PSYCHPN ---
Subjective Subjective Date of Service: 08/21/24 Reason For Visit: Delusional Disorder; Depression Unspecified Interim History: seeing dogs outside, cats in the kitchen area, plastic mirroring moving around. aware these experiences are not reality-based, seems relatively blithe about it. per staff, FSBS 40s today. no issues otherwise. Mental Status Exam Mental Status Exam Narrative: Pt is alert and oriented; behavior is cooperative, friendly and calm; patient is not in distress; dressed in casual attire with unkempt hair but adequate hygiene; mood is described as euthymic; eye contact appropriate; Speech is normal rate, volume and prosody and not pressured; thought process is organized and goal directed; Thought content is on decreasing AVH and medical status; otherwise pertinent to relevant topics; no SI/HI expressed. Chronic AH of music; chronic VH ongoing. Patients insight and judgment improving. Diagnostics Vital Signs (24Hr): Vital Signs - 24 hr 08/20/24 20:00 Temperature 98.2 F Pulse Rate 65 Respiratory Rate 15 Blood Pressure 156/68 H Pulse Oximetry 98 Oxygen Delivery Method Room Air Labs 08/19/24 07:29 08/21/24 07:33 Labs: Laboratory Results - last 48 hr 08/20/24 08/20/24 08/21/24 06:42 09:09 06:35 Sodium Potassium Chloride Carbon Dioxide Anion Gap BUN Creatinine Estim Creat Clear Calc Estimated GFR POC Glucose 59 L* 192 H 48 L* Random Glucose Calcium 08/21/24 08/21/24 07:33 08:35 Sodium 142 Potassium 4.7 Chloride 111 H Carbon Dioxide 22 Anion Gap 14 BUN 31 H Creatinine 1.47 H Estim Creat Clear Calc 32.2 Estimated GFR 35 POC Glucose 381 H* Random Glucose 157 H Calcium 9.0 Medications Medications Current Medications Acetaminophen (Acetaminophen 325 Mg Tablet) 650 mg PO Q6H PRN PRN Reason: Headache/Pain, Scale 1-10 Al Hydroxide/Mg Hydroxide (Magnesium Hydrox/Alum Hydrox 30 Ml Oral.Susp) 30 ml PO Q6H PRN PRN Reason: Heartburn/Nausea Amlodipine Besylate (Amlodipine Besylate 5 Mg Tablet) 5 mg PO DAILY [facility]; Protocol Last Admin: 08/21/24 08:31 Dose: 5 mg Atorvastatin Calcium (Atorvastatin Calcium 20 Mg Tablet) 20 mg PO DAILY [facility] Last Admin: 08/21/24 08:31 Dose: 20 mg Bupropion HCl (Bupropion Hcl Xl 150 Mg Tab.Er.24h) 150 mg PO BID [facility] Last Admin: 08/21/24 08:32 Dose: 150 mg Dextrose (Dextrose 50 % 25 Gm/50 Ml Syringe) 25 gm IVPUSH Q15M PRN; Protocol PRN Reason: per Hypoglycemia Standing Ord. Gabapentin (Gabapentin 300 Mg Capsule) 300 mg PO TID [facility] Last Admin: 08/21/24 08:31 Dose: 300 mg Glucose (Glucose Gel 15 Gm Gel..Gram.) 15 gm PO Q15M PRN; Protocol PRN Reason: per Hypoglycemia Standing Ord. Insulin Glargine (Insulin Glargine,Hum.Rec.Anlog 100 Unit/Ml 10 Ml Vial) 35 unit SUBCUT BEDTIME [facility] Insulin Human Lispro (Insulin Lispro 100 Unit/Ml 3 Ml Vial) 0 unit SUBCUT QIDACHS [facility]; Protocol Magnesium Hydroxide (Milk Of Magnesia 30 Ml Oral.Susp) 30 ml PO DAILY PRN PRN Reason: Constipation Metoprolol Succinate (Metoprolol Succinate Er 100 Mg Tab.Er.24h) 100 mg PO DAILY [facility]; Protocol Last Admin: 08/21/24 08:31 Dose: 100 mg Risperidone (Risperidone 0.25 Mg Tablet) 0.25 mg PO BID [facility] Last Admin: 08/21/24 08:31 Dose: 0.25 mg Temazepam (Temazepam 15 Mg Capsule) 30 mg PO BEDTIME [facility] Last Admin: 08/20/24 20:44 Dose: 30 mg Trazodone HCl (Trazodone Hcl 25 Mg Halftab) 25 mg PO BEDTIME MRX1 PRN PRN Reason: Insomnia Venlafaxine HCl (Venlafaxine Hcl Er 150 Mg Cap.Er.24h) 150 mg PO DAILY [facility] Last Admin: 08/21/24 08:31 Dose: 150 mg Allergies Allergies Allergy/AdvReac Type Severity Reaction Status Date / Time Penicillins Allergy Unknown Unknown Verified 08/17/24 19:55 amitriptyline Allergy Unknown Verified 08/17/24 21:18 Assessment & Plan Assessment & Plan (1) Hallucinations: Status: Acute Code(s): R44.3 - Hallucinations, unspecified (2) UTI (urinary tract infection): Status: Acute Code(s): N39.0 - Urinary tract infection, site not specified (3) Depression: Status: Acute Code(s): F32.A - Depression, unspecified Plan HPI: Patient is a 74-year-old female with history of AVH who presents for worsening visual hallucinations causing distress. Patient reports that chronically, for the past 5 or so years, she hears music all the time which can be ?bothersome and makes it hard for her to concentrate. For the same duration, Patient also sees various people doing things however this does not bother her and she knows it is just her mind playing tricks on her, that it is not real. This past week, patient had additional hallucinations and says she started seeing kittens in the house even though they do not have a CAT; she then started seeing rats but small ones and dogs that would expand in size. She called in her son who lives with her who said there at all however she did not believe him because she could see 2000 rats-little ones... He wanted her to go to the hospital because he said I was not making sense..and he was worried i had a UTI... (patient endorses increased urinary frequency and urgency and said today she did urinate on herself on the way to the bathroom; denies any urinary discomfort). At the hospital, she continued to see animals but was comforted when staff there said it was not true and she started to agree that perhaps they were hallucinations. Patient said she stopped seeing animals but then at the hospital, in her room saw a girl in my room, talking on the phone and part of her body started to disappear... Than half of her body came back... She was crying on the phone and I thought it was my fault that the girl was gone.. However she said staff again helped her realize this was just her mind playing tricks on her. Patient says that she would like medication if it would help her stop hearing music all the time; she denies any active SI but says sometimes she gets depressed missing her and will sometimes wish she were , though she says this feeling is short-lived. Impression/Clinical reasoning: Patient reports chronic AVH with auditory hallucinations of music bothering her for which she would like medications; med rec without any current antipsychotic medication. Seems that patient may have a UTI which has exacerbated her chronic symptoms. Patient also expressed some ongoing depression with intermittent passive wish though no active SI. She lives with her son and grandkids and said she would never consider taking her life. DX: Will leave at hallucinations for now; no overt delusional content expressed other than wondering if VH is real; will further clarify with collateral -repeat UA ordered; discussed with hospitalist about treating empirically while waiting for results -will start on low-dose Risperdal to see if can help with AH and maybe VH -consider dementia workup, Lewy body? Security Auditor did not assess for parkinsonian symptoms -may consider increasing Effexor for some continued sadness and intermittent passive wish Plan: CV Q 15 minute checks Start Risperdal 0.25 mg b.i.d. Will add low-dose trazodone as a p.r.n. for insomnia Ordered CBC, CMP; UA pending; consult to hospitalist regarding whether to empirically start ABX Continue other home medications Gather collateral 08/19: elevated BUN/Cr and HbA1c noted. per hospitalist, no UTI, no antibx indicated. add daily POC an change restoril to scheduled, otherwise continue current mgmt. 08/20: mood improved, AVH improving. FSBS 59 this morning, but HbA1c 7.3; continue current insulin orders and trend morning FSBS for now. check BMP tomorrow for F/U on K and BUN/Cr. otherwise continue current mgmt. 08/21: more VH overnight. AH not spontaneously mentioned but endorsed when asked about. seems rather blithe about the experiences. knows they are hallucinations. unstable FSBS, decreasing lantus from 40 units to 35 units tonight. FSBS QIDACHS with SSI added. Reason for continued inpatient stay Substantial Risk for: inability to function and rapid decompensation Time Spent With Patient Time: Total time managing care of this patient today ____ minutes.
[2024-08-21 12:11] LABS: Glucose, Whole Blood 51 mg/dL (60-115)
[2024-08-21 16:27] LABS: Glucose, Whole Blood 55 mg/dL (60-115)
[2024-08-21 20:00] VITALS: BP 149/65; PULSE 78; RESP 16; TEMP 36.6; O2SAT 97
[2024-08-21 20:12] LABS: Glucose, Whole Blood 189 mg/dL (60-115)
[2024-08-21] MEDS: Insulin Glargine,Hum.rec.anlog 100 UNIT/ML 10 ML VIAL 35 UNIT SUBCUT (20:37)
[2024-08-22 06:53] LABS: Glucose, Whole Blood 54 mg/dL (60-115)
[2024-08-22 07:19] LABS: Glucose, Whole Blood 121 mg/dL (60-115)
[2024-08-22 08:00] VITALS: BP 138/67; PULSE 62; RESP 16; TEMP 36.1; O2SAT 96
--- NOTE | 2024-08-22 08:51 | HO.PSYCHPN ---
Subjective Subjective Date of Service: 08/22/24 Reason For Visit: Delusional Disorder; Depression Unspecified Subjective Notes: Conditional Voluntary Interim History: Pt slept through the night. She reports hearing music for past 5 years, in connection with hearing loss (but was never assessed for this as she feared to be labeled as crazy). She continues to report seeing animals and objects on the wall like a clock moving. MOCA completed scored 23/30 with most impairments in visuospatial, attention and recall. intact orientation, language, abstraction. ACL 5.0 mild cognitive impairments. Fasting BS low, hospitalist following and adjusted lantus. Mental Status Exam Mental Status Exam Narrative: Appearance: wearing casual clothing, good hygiene, in NAD Behavior: cooperative Psychomotor: Speech: clear, normal rate/rhtyhm/volume, spontaneous TP: linear TC: disturbed by musical hallucinations, and intermittent visual hallucinations Mood: okay Affect: congruent SI: none HI; none VH/AH: intermittent visual hallucinations of animals and misidentificaiton of moving objects (that are the like a clock) with awareness that others can't see them. music hallucinations. Delusions: no overt delusional content. Insight/judgment: fair x 2. Memory/cog: MOCA completed scored 23/30 with most impairments in visuospatial, attention and recall. intact orientation, language, abstraction. ACL 5.0 mild cognitive impairments. Diagnostics Vital Signs (24Hr): Vital Signs - 24 hr 08/21/24 20:00 Temperature 97.9 F Pulse Rate 78 Respiratory Rate 16 Blood Pressure 149/65 H Pulse Oximetry 97 Oxygen Delivery Method Room Air Labs 08/19/24 07:29 08/22/24 11:33 Labs: Laboratory Results - last 48 hr 08/20/24 08/21/24 08/21/24 09:09 06:35 07:33 Sodium 142 Potassium 4.7 Chloride 111 H Carbon Dioxide 22 Anion Gap 14 BUN 31 H Creatinine 1.47 H Estim Creat Clear Calc 32.2 Estimated GFR 35 POC Glucose 192 H 48 L* Random Glucose 157 H Calcium 9.0 08/21/24 08/21/24 08/21/24 08:35 12:02 16:23 Sodium Potassium Chloride Carbon Dioxide Anion Gap BUN Creatinine Estim Creat Clear Calc Estimated GFR POC Glucose 381 H* 51 L* 55 L* Random Glucose Calcium 08/21/24 08/22/24 08/22/24 20:09 06:39 07:15 Sodium Potassium Chloride Carbon Dioxide Anion Gap BUN Creatinine Estim Creat Clear Calc Estimated GFR POC Glucose 189 H 54 L* 121 H Random Glucose Calcium Medications Medications Current Medications Acetaminophen (Acetaminophen 325 Mg Tablet) 650 mg PO Q6H PRN PRN Reason: Headache/Pain, Scale 1-10 Al Hydroxide/Mg Hydroxide (Magnesium Hydrox/Alum Hydrox 30 Ml Oral.Susp) 30 ml PO Q6H PRN PRN Reason: Heartburn/Nausea Amlodipine Besylate (Amlodipine Besylate 5 Mg Tablet) 5 mg PO DAILY [facility]; Protocol Last Admin: 08/21/24 08:31 Dose: 5 mg Atorvastatin Calcium (Atorvastatin Calcium 20 Mg Tablet) 20 mg PO DAILY [facility] Last Admin: 08/21/24 08:31 Dose: 20 mg Bupropion HCl (Bupropion Hcl Xl 150 Mg Tab.Er.24h) 150 mg PO BID [facility] Last Admin: 08/21/24 20:38 Dose: 150 mg Dextrose (Dextrose 50 % 25 Gm/50 Ml Syringe) 25 gm IVPUSH Q15M PRN; Protocol PRN Reason: per Hypoglycemia Standing Ord. Gabapentin (Gabapentin 300 Mg Capsule) 300 mg PO TID [facility] Last Admin: 08/21/24 20:38 Dose: 300 mg Glucose (Glucose Gel 15 Gm Gel..Gram.) 15 gm PO Q15M PRN; Protocol PRN Reason: per Hypoglycemia Standing Ord. Insulin Glargine (Insulin Glargine,Hum.Rec.Anlog 100 Unit/Ml 10 Ml Vial) 30 unit SUBCUT BEDTIME [facility] Insulin Human Lispro (Insulin Lispro 100 Unit/Ml 3 Ml Vial) 0 unit SUBCUT QIDACHS [facility]; Protocol Last Admin: 08/21/24 20:37 Dose: 2 unit Magnesium Hydroxide (Milk Of Magnesia 30 Ml Oral.Susp) 30 ml PO DAILY PRN PRN Reason: Constipation Metoprolol Succinate (Metoprolol Succinate Er 100 Mg Tab.Er.24h) 100 mg PO DAILY [facility]; Protocol Last Admin: 08/21/24 08:31 Dose: 100 mg Risperidone (Risperidone 0.25 Mg Tablet) 0.25 mg PO BID [facility] Last Admin: 08/21/24 20:38 Dose: 0.25 mg Temazepam (Temazepam 15 Mg Capsule) 30 mg PO BEDTIME [facility] Last Admin: 08/21/24 22:53 Dose: 30 mg Trazodone HCl (Trazodone Hcl 25 Mg Halftab) 25 mg PO BEDTIME MRX1 PRN PRN Reason: Insomnia Venlafaxine HCl (Venlafaxine Hcl Er 150 Mg Cap.Er.24h) 150 mg PO DAILY [facility] Last Admin: 08/21/24 08:31 Dose: 150 mg Allergies Allergies Allergy/AdvReac Type Severity Reaction Status Date / Time Penicillins Allergy Unknown Unknown Verified 08/17/24 19:55 amitriptyline Allergy Unknown Verified 08/17/24 21:18 Assessment & Plan Assessment & Plan (1) Hallucinations: Status: Acute Code(s): R44.3 - Hallucinations, unspecified (2) Depression: Status: Acute Code(s): F32.A - Depression, unspecified (3) MCI (mild cognitive impairment): Status: Acute Code(s): G31.84 - Mild cognitive impairment of uncertain or unknown etiology Plan Mrs. Joiner is a 74 year-old woman with hx of musical hallucinations (may be in context of hearing loss but also present in LBD), newer visual hallucinations of animal, awareness of such hallucinations who presents with no signs of delirium. Constellation of symptoms is concerning for LBD. Moreover, the pattern of cognitive impairment is consistent with early LBD in that visuo spatial, attention and recall are mildly impaired with intact orientation, language and abstraction. will continue current medications. recommend additional OP testing to confirm dx of LBD including DATscan and considering skin biopsy for biomarker for alpha synuclein pathology. 08/22 suspect underlying Lewy Body Dementia as culprit of visual hallucinations, hearing loss contributing to musical hallucinations but also in context of lewy body dementia as it hallucinations in this condition are more related to sensory processing issues than ming psychosis- although as condition progresses, delusions are also common. fasting BS low, hospitalist following and lowered lantus. Reason for continued inpatient stay Substantial Risk for: inability to function Time Spent With Patient Time: Total time managing care of this patient today ____ minutes.
[2024-08-22 09:11] VITALS: BP 138/67; PULSE 62
[2024-08-22] MEDS: Venlafaxine HCl ER 150 MG CAP.ER.24H PO (09:11)
[2024-08-22] MEDS: Metoprolol Succinate ER 100 MG TAB.ER.24H PO (09:11)
[2024-08-22] MEDS: buPROPion HCl XL 150 MG TAB.ER.24H PO (09:11)
[2024-08-22 11:26] LABS: Glucose, Whole Blood 55 mg/dL (60-115)
--- NOTE | 2024-08-22 11:27 | HO.PM.IMPN ---
Subjective Subjective Date of Service: 08/22/24 Interval History: 74-year-old female with a past medical history of hypertension hyperlipidemia, insulin-dependent diabetes, depression, and chronic lower back pain. She was admitted to [facility] after increase visual and auditory hallucination with the past several weeks and unwitnessed fall. Patient was sent to the hospital after she was found on the floor, reports that she seeing kittens on the floor trying to pick them up. Patient is admitted to the [facility] psych floor for treatment. She is being seen today for hypoglycemia. On exam she is awake and alert, denies any shortness of breath or chest pain. Reports that she has left last evening, ate breakfast. Her vitals are stable. Patient has been having low blood sugars, her Lantus was recently decreased to 35 units over the weekend, her blood sugar was 121 this morning, subsequent meeting prior to lunch was 55. Lantus decreased to 30 units, we will continue to monitor for hypoglycemic, add in an HS snack. Review of Systems Denies any shortness of breath, chest pain, dizziness, lightheadedness, abdominal pain or discomfort, nausea vomiting or diarrhea Physical Exam Vital Signs: Vital Signs: Last Vital Signs Temp 97.0 F 08/22/24 08:00 Pulse 62 08/22/24 09:11 Resp 16 08/22/24 08:00 BP 138/67 08/22/24 09:11 Pulse Ox 96 08/22/24 08:00 O2 Del Method Room Air 08/22/24 08:00 CONST: Alert and confused, in NAD. Well nourished HEENT: Normocephalic, atraumatic, MMM, Eyes clear, Neck supple RESP: Lungs clear, RRR even and regular HEART:,RRR, S1, S2. No edema GI:Abdomen Soft NT, ND. + BS times four :Deferred SKIN: Warm dry and intact, no visible lesions or rashes NEURO:CN II-XII Intact bilaterally, Sensation intact. Speech clear PSYCH: Normal affect Objective Data Active Medications Acetaminophen (Acetaminophen 325 Mg Tablet) 650 mg PO Q6H PRN PRN Reason: Headache/Pain, Scale 1-10 Al Hydroxide/Mg Hydroxide (Magnesium Hydrox/Alum Hydrox 30 Ml Oral.Susp) 30 ml PO Q6H PRN PRN Reason: Heartburn/Nausea Amlodipine Besylate (Amlodipine Besylate 5 Mg Tablet) 5 mg PO DAILY [facility]; Protocol Last Admin: 08/22/24 09:11 Dose: 5 mg Documented By: CALVIN Atorvastatin Calcium (Atorvastatin Calcium 20 Mg Tablet) 20 mg PO DAILY [facility] Last Admin: 08/22/24 09:11 Dose: 20 mg Documented By: CALVIN Bupropion HCl (Bupropion Hcl Xl 150 Mg Tab.Er.24h) 150 mg PO DAILY [facility] Dextrose (Dextrose 50 % 25 Gm/50 Ml Syringe) 25 gm IVPUSH Q15M PRN; Protocol PRN Reason: per Hypoglycemia Standing Ord. Gabapentin (Gabapentin 300 Mg Capsule) 300 mg PO TID [facility] Last Admin: 08/22/24 09:11 Dose: 300 mg Documented By: CALVIN Glucose (Glucose Gel 15 Gm Gel..Gram.) 15 gm PO Q15M PRN; Protocol PRN Reason: per Hypoglycemia Standing Ord. Insulin Glargine (Insulin Glargine,Hum.Rec.Anlog 100 Unit/Ml 10 Ml Vial) 30 unit SUBCUT BEDTIME [facility] Insulin Human Lispro (Insulin Lispro 100 Unit/Ml 3 Ml Vial) 0 unit SUBCUT QIDACHS [facility]; Protocol Last Admin: 08/22/24 09:08 Dose: Not Given Documented By: CALVIN Non-Admin Reason: No Insulin Coverage Magnesium Hydroxide (Milk Of Magnesia 30 Ml Oral.Susp) 30 ml PO DAILY PRN PRN Reason: Constipation Metoprolol Succinate (Metoprolol Succinate Er 100 Mg Tab.Er.24h) 100 mg PO DAILY [facility]; Protocol Last Admin: 08/22/24 09:11 Dose: 100 mg Documented By: CALVIN Risperidone (Risperidone 0.25 Mg Tablet) 0.25 mg PO BID [facility] Last Admin: 08/22/24 09:12 Dose: 0.25 mg Documented By: CALVIN Temazepam (Temazepam 15 Mg Capsule) 30 mg PO BEDTIME [facility] Last Admin: 08/21/24 22:53 Dose: 30 mg Documented By: YESSICA Trazodone HCl (Trazodone Hcl 50 Mg Tablet) 50 mg PO BEDTIME PRN PRN Reason: Insomnia Venlafaxine HCl (Venlafaxine Hcl Er 150 Mg Cap.Er.24h) 150 mg PO DAILY [facility] Last Admin: 08/22/24 09:11 Dose: 150 mg Documented By: CALVIN Labs 08/19/24 07:29 08/21/24 07:33 Labs: Laboratory Results - last 24 hr 08/21/24 08/21/24 08/21/24 12:02 16:23 20:09 POC Glucose 51 L* 55 L* 189 H 08/22/24 08/22/24 08/22/24 06:39 07:15 11:21 POC Glucose 54 L* 121 H 55 L* Assessment and Plan (1) Insulin dependent type 2 diabetes mellitus: Status: Acute (2) Hypoglycemia: Status: Acute Plan 74-year-old female with past medical history of depression, hyperlipidemia, hypertension, chronic low back pain, insulin-dependent type 2 diabetes admitted to [facility] after she experienced visual auditory hallucinations. Patient is being seen today for hypoglycemia. Insulin-dependent type 2 diabetes with hypoglycemia Patient has had several hypoglycemic readings 48, 51, 55, 54, and 55. Will decrease Lantus to 30 Units at hs Bedtime snack nightly. Recent A1c 7.3. Lipid panel within normal limits. Continue to monitor and adjust as needed Depression/visual and auditory hallucination Plan per psychiatric team Hypertension/hyperlipidemia Continue Norvasc, Lipitor, and metoprolol 100 mg extended release. Blood pressure is under goal Continue to monitor blood pressures and adjust medications as needed Chronic low back pain Continue gabapentin Thank you for allowing me to participate in the care of this patient. Will follow as needed. Please reconsult of any acute concerns or issues arise Quality Stroke Does the patient have a stroke diagnosis?: No VTE Prior VTE?: No VTE Risk Level:: Medical - low VTE Device Contraindication: Treatment Not Indicated VTE Drug Contraindication: Treatment Not Indicated
[2024-08-22 12:06] LABS: Alanine Aminotransferase 19 U/L (0-31); Albumin Level 4.1 g/dL (3.5-5.0); Alkaline Phosphatase 130 U/L (39-117); Anion Gap 11 (12-20); Aspartate Amino Transferase 43 U/L (5-31); Blood Urea Nitrogen 30 mg/dL (9-16); Calcium 9.1 mg/dL (8.4-10.2); Carbon Dioxide 24 mmol/L (22-29); Chloride 111 mmol/L (96-108); Creatinine Clr Calc Pharmacy 32.6; Estimated Glomerular Filt Rate 35; Potassium 4.4 mmol/L (3.3-5.1); Sodium 142 mmol/L (135-145); Total Protein 6.8 g/dL (6.5-8.0)
[2024-08-22 12:12] LABS: Glucose, Whole Blood 144 mg/dL (60-115)
[2024-08-22 12:28] LABS: Folate 7.0 ng/mL (> or = 4.0); Vitamin B12 210 pg/mL (200-900)
--- NOTE | 2024-08-22 12:58 | PC.NURSE ---
Patient's POC before lunch was 55. No s/s of hypoglycemia. Medical provider Nelida Galvez NP notified. Re-check after lunch for POC 144. No insulin coverage. Will continue to monitor.
[2024-08-22 16:07] LABS: Glucose, Whole Blood 156 mg/dL (60-115)
[2024-08-22 20:00] VITALS: BP 173/78; PULSE 64; RESP 16; TEMP 35.7; O2SAT 100
[2024-08-22 20:19] LABS: Glucose, Whole Blood 131 mg/dL (60-115)
[2024-08-22] MEDS: Insulin Glargine,Hum.rec.anlog 100 UNIT/ML 10 ML VIAL 30 UNIT SUBCUT (23:14)
[2024-08-23 07:15] LABS: Glucose, Whole Blood 51 mg/dL (60-115)
[2024-08-23 07:16] LABS: Glucose, Whole Blood 106 mg/dL (60-115)
[2024-08-23 07:55] VITALS: BP 147/68; PULSE 63; RESP 18; TEMP 36.7; O2SAT 100
[2024-08-23] MEDS: Metoprolol Succinate ER 100 MG TAB.ER.24H PO (08:45)
[2024-08-23] MEDS: Venlafaxine HCl ER 150 MG CAP.ER.24H PO (08:45)
[2024-08-23] MEDS: buPROPion HCl XL 150 MG TAB.ER.24H PO (08:46)
[2024-08-23 11:29] LABS: Glucose, Whole Blood 148 mg/dL (60-115)
[2024-08-23 16:22] LABS: Glucose, Whole Blood 97 mg/dL (60-115)
--- NOTE | 2024-08-23 16:40 | HO.PSYCHPN ---
Subjective Subjective Date of Service: 08/23/24 Reason For Visit: Delusional Disorder; Depression Unspecified Interim History: Pt slept through the night. She reports hearing music for past 5 years, in connection with hearing loss (but was never assessed for this as she feared to be labeled as crazy). She continues to report seeing animals and objects on the wall like a clock moving. MOCA completed scored 23/30 with most impairments in visuospatial, attention and recall. intact orientation, language, abstraction. ACL 5.0 mild cognitive impairments. Fasting BS low, hospitalist following and adjusted lantus. Review of Systems Review of Systems Denies any shortness of breath, chest pain, dizziness, lightheadedness, abdominal pain or discomfort, nausea vomiting or diarrhea Mental Status Exam Mental Status Exam Narrative: Appearance: wearing casual clothing, good hygiene, in NAD Behavior: cooperative Psychomotor: Speech: clear, normal rate/rhtyhm/volume, spontaneous TP: linear TC: disturbed by musical hallucinations, and intermittent visual hallucinations Mood: okay Affect: congruent SI: none HI; none VH/AH: intermittent visual hallucinations of animals and misidentificaiton of moving objects (that are the like a clock) with awareness that others can't see them. music hallucinations. Delusions: no overt delusional content. Insight/judgment: fair x 2. Memory/cog: MOCA completed scored 23/30 with most impairments in visuospatial, attention and recall. intact orientation, language, abstraction. ACL 5.0 mild cognitive impairments. Diagnostics Vital Signs (24Hr): Vital Signs - 24 hr 08/22/24 20:00 08/23/24 07:55 Temperature 96.2 F L 98.1 F Pulse Rate 64 63 Respiratory Rate 16 18 Blood Pressure 173/78 H 147/68 H Pulse Oximetry 100 100 Oxygen Delivery Method Room Air Room Air Labs 08/19/24 07:29 08/22/24 11:33 Labs: Laboratory Results - last 48 hr 08/21/24 08/22/24 08/22/24 20:09 06:39 07:15 Sodium Potassium Chloride Carbon Dioxide Anion Gap BUN Creatinine Estim Creat Clear Calc Estimated GFR POC Glucose 189 H 54 L* 121 H Random Glucose Calcium Total Bilirubin AST ALT Alkaline Phosphatase Total Protein Albumin Vitamin B12 25-OH Vitamin D Total Folate TSH 08/22/24 08/22/24 08/22/24 11:21 11:33 12:08 Sodium 142 Potassium 4.4 Chloride 111 H Carbon Dioxide 24 Anion Gap 11 L BUN 30 H Creatinine 1.45 H Estim Creat Clear Calc 32.6 Estimated GFR 35 POC Glucose 55 L* 144 H Random Glucose 67 Calcium 9.1 Total Bilirubin 0.3 AST 43 H ALT 19 Alkaline Phosphatase 130 H Total Protein 6.8 Albumin 4.1 Vitamin B12 210 25-OH Vitamin D Total 16.5 L Folate 7.0 TSH 3.24 08/22/24 08/22/24 08/23/24 16:03 20:04 06:37 Sodium Potassium Chloride Carbon Dioxide Anion Gap BUN Creatinine Estim Creat Clear Calc Estimated GFR POC Glucose 156 H 131 H 51 L* Random Glucose Calcium Total Bilirubin AST ALT Alkaline Phosphatase Total Protein Albumin Vitamin B12 25-OH Vitamin D Total Folate TSH 08/23/24 08/23/24 08/23/24 07:11 11:23 16:18 Sodium Potassium Chloride Carbon Dioxide Anion Gap BUN Creatinine Estim Creat Clear Calc Estimated GFR POC Glucose 106 148 H 97 Random Glucose Calcium Total Bilirubin AST ALT Alkaline Phosphatase Total Protein Albumin Vitamin B12 25-OH Vitamin D Total Folate TSH Medications Medications Current Medications Acetaminophen (Acetaminophen 325 Mg Tablet) 650 mg PO Q6H PRN PRN Reason: Headache/Pain, Scale 1-10 Al Hydroxide/Mg Hydroxide (Magnesium Hydrox/Alum Hydrox 30 Ml Oral.Susp) 30 ml PO Q6H PRN PRN Reason: Heartburn/Nausea Amlodipine Besylate (Amlodipine Besylate 5 Mg Tablet) 5 mg PO DAILY [facility]; Protocol Last Admin: 08/23/24 08:45 Dose: 5 mg Atorvastatin Calcium (Atorvastatin Calcium 20 Mg Tablet) 20 mg PO DAILY [facility] Last Admin: 08/23/24 08:45 Dose: 20 mg Bupropion HCl (Bupropion Hcl Xl 150 Mg Tab.Er.24h) 150 mg PO DAILY [facility] Last Admin: 08/23/24 08:46 Dose: 150 mg Dextrose (Dextrose 50 % 25 Gm/50 Ml Syringe) 25 gm IVPUSH Q15M PRN; Protocol PRN Reason: per Hypoglycemia Standing Ord. Gabapentin (Gabapentin 300 Mg Capsule) 300 mg PO TID [facility] Last Admin: 08/23/24 14:19 Dose: 300 mg Glucose (Glucose Gel 15 Gm Gel..Gram.) 15 gm PO Q15M PRN; Protocol PRN Reason: per Hypoglycemia Standing Ord. Insulin Glargine (Insulin Glargine,Hum.Rec.Anlog 100 Unit/Ml 10 Ml Vial) 30 unit SUBCUT BEDTIME [facility] Last Admin: 08/22/24 23:14 Dose: 30 unit Insulin Human Lispro (Insulin Lispro 100 Unit/Ml 3 Ml Vial) 0 unit SUBCUT QIDACHS [facility]; Protocol Last Admin: 08/23/24 16:25 Dose: Not Given Magnesium Hydroxide (Milk Of Magnesia 30 Ml Oral.Susp) 30 ml PO DAILY PRN PRN Reason: Constipation Metoprolol Succinate (Metoprolol Succinate Er 100 Mg Tab.Er.24h) 100 mg PO DAILY [facility]; Protocol Last Admin: 08/23/24 08:45 Dose: 100 mg Risperidone (Risperidone 0.25 Mg Tablet) 0.25 mg PO BID [facility] Last Admin: 08/23/24 08:46 Dose: 0.25 mg Temazepam (Temazepam 15 Mg Capsule) 30 mg PO BEDTIME [facility] Last Admin: 08/22/24 22:25 Dose: 30 mg Trazodone HCl (Trazodone Hcl 50 Mg Tablet) 50 mg PO BEDTIME PRN PRN Reason: Insomnia Last Admin: 08/23/24 03:01 Dose: 50 mg Venlafaxine HCl (Venlafaxine Hcl Er 150 Mg Cap.Er.24h) 150 mg PO DAILY [facility] Last Admin: 08/23/24 08:45 Dose: 150 mg Allergies Allergies Allergy/AdvReac Type Severity Reaction Status Date / Time Penicillins Allergy Unknown Unknown Verified 08/17/24 19:55 amitriptyline Allergy Unknown Verified 08/17/24 21:18 Assessment & Plan Assessment & Plan (1) Hallucinations: Status: Acute Code(s): R44.3 - Hallucinations, unspecified (2) UTI (urinary tract infection): Status: Deleted Code(s): N39.0 - Urinary tract infection, site not specified (3) Depression: Status: Acute Code(s): F32.A - Depression, unspecified (4) MCI (mild cognitive impairment): Status: Acute Code(s): G31.84 - Mild cognitive impairment of uncertain or unknown etiology Plan Mrs. Joiner is a 74 year-old woman with hx of musical hallucinations (may be in context of hearing loss but also present in LBD), newer visual hallucinations of animal, awareness of such hallucinations who presents with no signs of delirium. Constellation of symptoms is concerning for LBD. Moreover, the pattern of cognitive impairment is consistent with early LBD in that visuo spatial, attention and recall are mildly impaired with intact orientation, language and abstraction. will continue current medications. recommend additional OP testing to confirm dx of LBD including DATscan and considering skin biopsy for biomarker for alpha synuclein pathology. 08/23 increase risperidone to 0.5mg po BID see if this has more of an effect on visual hallucinations or if she needs different medications. Noted Vit d is low- start on vit d 50mgc po daily. Reason for continued inpatient stay Substantial Risk for: inability to function Time Spent With Patient Time: Total time managing care of this patient today ____ minutes.
[2024-08-23 20:00] VITALS: BP 171/71; PULSE 70; RESP 18; TEMP 35.9; O2SAT 99
[2024-08-23 20:44] LABS: Glucose, Whole Blood 274 mg/dL (60-115)
[2024-08-23] MEDS: Insulin Glargine,Hum.rec.anlog 100 UNIT/ML 10 ML VIAL 30 UNIT SUBCUT (21:03)
[2024-08-24 06:35] LABS: Glucose, Whole Blood 81 mg/dL (60-115)
[2024-08-24 07:50] VITALS: BP 131/60; PULSE 67; RESP 18; TEMP 36.4; O2SAT 97
[2024-08-24] MEDS: Metoprolol Succinate ER 100 MG TAB.ER.24H PO (08:15)
[2024-08-24] MEDS: Venlafaxine HCl ER 150 MG CAP.ER.24H PO (08:15)
[2024-08-24 11:31] LABS: Glucose, Whole Blood 138 mg/dL (60-115)
--- NOTE | 2024-08-24 12:21 | HO.PSYCHPN ---
Subjective Subjective Date of Service: 08/24/24 Reason For Visit: Delusional Disorder; Depression Unspecified Subjective Notes: Conditional Voluntary Interim History: Pt reports better sleep. She continues to report musical hallucinations along with intermittent animals that she sees on the floor and on the wall. She is aware other people can't see them. She is relief to know that these are neurological symptoms. We had family meeting discuss likelihood of Lewy Body Dementia and additional testing to be done outpatient- including marguerite scan/pet scan, skin biopsy for alpha synuclein protein. We discussed adding aricept 5mg po qhs- as it may help with VH in LDB with understanding that if this is not dx once additional testing is completed it may be dced. Mental Status Exam Mental Status Exam Narrative: Appearance: wearing casual clothing, good hygiene, in NAD Behavior: cooperative Psychomotor: Speech: clear, normal rate/rhtyhm/volume, spontaneous TP: linear TC: disturbed by musical hallucinations, and intermittent visual hallucinations Mood: okay Affect: congruent SI: none HI; none VH/AH: intermittent visual hallucinations of animals and misidentificaiton of moving objects (that are the like a clock) with awareness that others can't see them. music hallucinations. Delusions: no overt delusional content. Insight/judgment: fair x 2. Memory/cog: MOCA completed scored 23/30 with most impairments in visuospatial, attention and recall. intact orientation, language, abstraction. ACL 5.0 mild cognitive impairments. Diagnostics Vital Signs (24Hr): Vital Signs - 24 hr 08/23/24 20:00 08/24/24 07:50 Temperature 96.6 F L 97.6 F Pulse Rate 70 67 Respiratory Rate 18 18 Blood Pressure 171/71 H 131/60 Pulse Oximetry 99 97 Oxygen Delivery Method Room Air Room Air Labs 08/19/24 07:29 08/22/24 11:33 Labs: Laboratory Results - last 48 hr 08/22/24 08/22/24 08/22/24 11:33 16:03 20:04 POC Glucose 156 H 131 H Vitamin B12 210 Folate 7.0 08/23/24 08/23/24 08/23/24 06:37 07:11 11:23 POC Glucose 51 L* 106 148 H Vitamin B12 Folate 08/23/24 08/23/24 08/24/24 16:18 20:39 06:29 POC Glucose 97 274 H 81 Vitamin B12 Folate 08/24/24 11:26 POC Glucose 138 H Vitamin B12 Folate Medications Medications Current Medications Acetaminophen (Acetaminophen 325 Mg Tablet) 650 mg PO Q6H PRN PRN Reason: Headache/Pain, Scale 1-10 Al Hydroxide/Mg Hydroxide (Magnesium Hydrox/Alum Hydrox 30 Ml Oral.Susp) 30 ml PO Q6H PRN PRN Reason: Heartburn/Nausea Amlodipine Besylate (Amlodipine Besylate 5 Mg Tablet) 5 mg PO DAILY [facility]; Protocol Last Admin: 08/24/24 08:14 Dose: 5 mg Atorvastatin Calcium (Atorvastatin Calcium 20 Mg Tablet) 20 mg PO DAILY [facility] Last Admin: 08/24/24 08:14 Dose: 20 mg Clonazepam (Clonazepam 1 Mg Tablet) 1 mg PO BEDTIME [facility] Last Admin: 08/23/24 20:50 Dose: 1 mg Dextrose (Dextrose 50 % 25 Gm/50 Ml Syringe) 25 gm IVPUSH Q15M PRN; Protocol PRN Reason: per Hypoglycemia Standing Ord. Gabapentin (Gabapentin 300 Mg Capsule) 300 mg PO TID [facility] Last Admin: 08/24/24 08:15 Dose: 300 mg Glucose (Glucose Gel 15 Gm Gel..Gram.) 15 gm PO Q15M PRN; Protocol PRN Reason: per Hypoglycemia Standing Ord. Insulin Glargine (Insulin Glargine,Hum.Rec.Anlog 100 Unit/Ml 10 Ml Vial) 30 unit SUBCUT BEDTIME [facility] Last Admin: 08/23/24 21:03 Dose: 30 unit Insulin Human Lispro (Insulin Lispro 100 Unit/Ml 3 Ml Vial) 0 unit SUBCUT QIDACHS [facility]; Protocol Last Admin: 08/24/24 08:15 Dose: Not Given Magnesium Hydroxide (Milk Of Magnesia 30 Ml Oral.Susp) 30 ml PO DAILY PRN PRN Reason: Constipation Melatonin (Melatonin 3 Mg Tablet) 6 mg PO BEDTIME [facility] Last Admin: 08/23/24 20:50 Dose: 6 mg Metoprolol Succinate (Metoprolol Succinate Er 100 Mg Tab.Er.24h) 100 mg PO DAILY [facility]; Protocol Last Admin: 08/24/24 08:15 Dose: 100 mg Risperidone (Risperidone 0.25 Mg Tablet) 0.5 mg PO BID [facility] Last Admin: 08/24/24 08:14 Dose: 0.5 mg Trazodone HCl (Trazodone Hcl 50 Mg Tablet) 50 mg PO BEDTIME PRN PRN Reason: Insomnia Last Admin: 08/23/24 03:01 Dose: 50 mg Venlafaxine HCl (Venlafaxine Hcl Er 150 Mg Cap.Er.24h) 150 mg PO DAILY [facility] Last Admin: 08/24/24 08:15 Dose: 150 mg Vitamin D (Cholecalciferol (Vitamin D3) 25 Mcg Tablet) 50 mcg PO DAILY [facility] Last Admin: 08/24/24 08:14 Dose: 50 mcg Allergies Allergies Allergy/AdvReac Type Severity Reaction Status Date / Time Penicillins Allergy Unknown Unknown Verified 08/17/24 19:55 amitriptyline Allergy Unknown Verified 08/17/24 21:18 Assessment & Plan Assessment & Plan (1) Hallucinations: Status: Acute Code(s): R44.3 - Hallucinations, unspecified Assessment and Plan: suspect related to Lewy Body Dementia (2) Depression: Status: Acute Code(s): F32.A - Depression, unspecified (3) MCI (mild cognitive impairment): Status: Acute Code(s): G31.84 - Mild cognitive impairment of uncertain or unknown etiology Assessment and Plan: MOCA completed scored 23/30 with most impairments in visuospatial, attention and recall. intact orientation, language, abstraction. ACL 5.0 mild cognitive impairments. Plan Mrs. Joiner is a 74 year-old woman with hx of musical hallucinations (may be in context of hearing loss but also present in LBD), newer visual hallucinations of animal, awareness of such hallucinations who presents with no signs of delirium. Constellation of symptoms is concerning for LBD. Moreover, the pattern of cognitive impairment is consistent with early LBD in that visuo spatial, attention and recall are mildly impaired with intact orientation, language and abstraction. will continue current medications. recommend additional OP testing to confirm dx of LBD including DATscan and considering skin biopsy for biomarker for alpha synuclein pathology. 08/23 increase risperidone to 0.5mg po BID see if this has more of an effect on visual hallucinations or if she needs different medications. Noted Vit d is low- start on vit d 50mgc po daily. 08/24 start aricept 5mg po qhs. continue all other medications. Reason for continued inpatient stay Substantial Risk for: inability to function Time Spent With Patient Time: Total time managing care of this patient today ____ minutes.
[2024-08-24 16:09] LABS: Glucose, Whole Blood 186 mg/dL (60-115)
--- NOTE | 2024-08-24 16:47 | MHC.SL.SWA ---
Speech Pathologist Impression: oral phase dysphagia Risk of Aspiration Due to: loose fitting dentures Dysphasia Diet Status: no change Liquid Consistency and Strategies for Safe Swallow: Liquid Intake Recommendation: Thin Solid Food Consistency: Dietary Recommendations: Regular Additional Modifications to Solid Foods: Oral Medication Intake: Whole with Liquid Please contact the pharmacy regarding appropriate crushable or liquid drug formulations that are available whenever modified delivery is recommended. Compensatory Strategies and Precautions to be Taken for Safe Swallow: alternate liquid/solid chew well slow rate Supervision While Eating and Drinking for Safe Swallow: Intermittent Supervision Foods to Avoid: Avoid overly dry, sticky, tough to chew foods Swallowing Recommended Treatments: PO w/ METAL FRAMER Recommendation for Speech: Inpatient Speech Therapy Comment: Recommend pt continue with regular solids, thin liquids, pills whole w/ liquid. Intermittent supervision to monitor toleration of diet. METAL FRAMER to follow to ensure pt is able to independently make appropriate decisions about foods and is tolerating regular solids. Recommend dental consultation d/t loose fitting dentures that are negatively impacting pt's ability to chew and swallow Frequency/Duration: few visits to ensure toleration of diet Cardiac Monitor Technician Clinican/Clinical Fellow: No Supervisory Statement: I have reviewed and agree with the student/clinical fellow's documentation: N/A Speech Language Pathologist: Breanne Christopher M.A., CCC-METAL [employer]AMER
[2024-08-24 20:00] VITALS: BP 165/72; PULSE 68; RESP 18; TEMP 36.5; O2SAT 100
[2024-08-24 20:41] LABS: Glucose, Whole Blood 260 mg/dL (60-115)
[2024-08-24] MEDS: Insulin Glargine,Hum.rec.anlog 100 UNIT/ML 10 ML VIAL 30 UNIT SUBCUT (20:53)
[2024-08-25 06:38] LABS: Glucose, Whole Blood 73 mg/dL (60-115)
[2024-08-25 07:55] VITALS: BP 131/69; PULSE 61; RESP 18; TEMP 36.6; O2SAT 95
[2024-08-25] MEDS: Venlafaxine HCl ER 150 MG CAP.ER.24H PO (08:13)
[2024-08-25] MEDS: Metoprolol Succinate ER 100 MG TAB.ER.24H PO (08:13)
[2024-08-25 11:23] LABS: Glucose, Whole Blood 193 mg/dL (60-115)
--- NOTE | 2024-08-25 12:31 | MHC.SL.SWA ---
Speech Pathologist Impression: Risk of Aspiration Due to: Esophageal dysmotility Dysphasia Diet Status: Recommend that she continue on current diet of REGULAR with THIN liquids, pills in puree, however recommended she elect softer, moistened food from this menu (e.g. with added sauces), and avoid both tough and dry foods, including breads/sandwiches. Patient should take small bites, chew thoroughly, alternate with sips of liquid. It is recommended patient be seen by GI due to evident esophageal dysmotility. PRE OWNED SALES MANAGER will continue to follow to assure safety on regular diet. Liquid Consistency and Strategies for Safe Swallow: Liquid Intake Recommendation: Thin Liquid Intake Strategies: Small Sips Solid Food Consistency: Dietary Recommendations: Regular Additional Modifications to Solid Foods: Elect softer food, preferably with sauces or gravies to moisten. Small bites, chew thoroughly, hard swallow, alternate liquids and solids. Oral Medication Intake: Whole with Puree Please contact the pharmacy regarding appropriate crushable or liquid drug formulations that are available whenever modified delivery is recommended. Compensatory Strategies and Precautions to be Taken for Safe Swallow: Sitting Upright (90 deg) Liquids from Cup Liquids from Straw Small Bites and Sips Alternate Liquids/Solids Rate of Ingestion Change Avoid Specific Foods Supervision While Eating and Drinking for Safe Swallow: Intermittent Supervision Foods to Avoid: Dry, hard or difficult to chew solids. Swallowing Recommended Treatments: Compens. Strategy Educat. Recommendation for Speech: Inpatient Speech Therapy Comment: Patient seen at lunch, initially passively observed while eating in group dining. Patient was attempting to eat a chicken salad sandwich on soft bread, noted to take small bites, chewing thoroughly and and for prolonged period, and noted to cover mouth when swallowing and swallowing effortfully. After several small bites, patient took some sips of liquid, but then presented as in distress, when approached was repeatedly trying to either swallow or bring up food that she stated was stuck, pointing to sternum notch. As she was gagging and attempting to retch, gurgle from the liquid consumed was audible, with patient eventually retching up trapped food and some liquid, requiring several paper towels to assist with clearing the trapped food and liquid. Patient reported this happens with increasing frequency during meals, now at least once a day. She further reported a family history of esophageal issues, both her mother and sister requiring EGDs. 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 Food consistencies and strategies were discussed with patient, at the moment it is recommended that she continue on current diet of REGULAR with THIN liquids, pills in puree, however recommended she elect softer, moistened food from this menu (e.g. with added sauces), and avoid both tough and dry foods, including breads/sandwiches. Patient noted that she had no difficulty at breakfast. It is recommended patient be seen by GI due to evident esophageal dysmotility. PRE OWNED SALES MANAGER will continue to follow to assure safety on regular diet. Frequency/Duration: f/u for toleration of diet, possible downgrade. Date Range for Service Req: Timeline to reassess: Director Equipment Clinican/Clinical Fellow: No Supervisory Statement: I have reviewed and agree with the student/clinical fellow's documentation: N/A Speech Language Pathologist: Denisse Doss M.A., CCC-PRE OWNED SALES MANAGER
[2024-08-25 16:27] LABS: Glucose, Whole Blood 125 mg/dL (60-115)
[2024-08-25 20:00] VITALS: BP 172/74; PULSE 68; RESP 18; TEMP 36.7; O2SAT 99
--- NOTE | 2024-08-25 21:00 | HO.PSYCHPN ---
Subjective Subjective Date of Service: 08/25/24 Reason For Visit: Delusional Disorder; Depression Unspecified Subjective Notes: Conditional Voluntary Interim History: Pt slept all night and difficult to wake up later in the day, will decrease dose of clonazepam. No SI/HI. taking medications as prescribed. Review of Systems Review of Systems Denies any shortness of breath, chest pain, dizziness, lightheadedness, abdominal pain or discomfort, nausea vomiting or diarrhea Mental Status Exam Mental Status Exam Narrative: Appearance: wearing casual clothing, good hygiene, in NAD Behavior: cooperative Psychomotor: Speech: clear, normal rate/rhtyhm/volume, spontaneous TP: linear TC: disturbed by musical hallucinations, and intermittent visual hallucinations Mood: okay Affect: congruent SI: none HI; none VH/AH: intermittent visual hallucinations of animals and misidentificaiton of moving objects (that are the like a clock) with awareness that others can't see them. music hallucinations. Delusions: no overt delusional content. Insight/judgment: fair x 2. Memory/cog: MOCA completed scored 23/30 with most impairments in visuospatial, attention and recall. intact orientation, language, abstraction. ACL 5.0 mild cognitive impairments. Diagnostics Vital Signs (24Hr): Vital Signs - 24 hr 08/25/24 07:55 08/25/24 20:00 Temperature 97.9 F 98.1 F Pulse Rate 61 68 Respiratory Rate 18 18 Blood Pressure 131/69 172/74 H Pulse Oximetry 95 99 Oxygen Delivery Method Room Air Room Air Labs 08/19/24 07:29 08/22/24 11:33 Labs: Laboratory Results - last 48 hr 08/24/24 08/24/24 08/24/24 06:29 11:26 16:05 POC Glucose 81 138 H 186 H 08/24/24 08/25/24 08/25/24 20:36 06:31 11:18 POC Glucose 260 H 73 193 H 08/25/24 16:21 POC Glucose 125 H Medications Medications Current Medications Acetaminophen (Acetaminophen 325 Mg Tablet) 650 mg PO Q6H PRN PRN Reason: Headache/Pain, Scale 1-10 Last Admin: 08/25/24 08:48 Dose: 650 mg Al Hydroxide/Mg Hydroxide (Magnesium Hydrox/Alum Hydrox 30 Ml Oral.Susp) 30 ml PO Q6H PRN PRN Reason: Heartburn/Nausea Amlodipine Besylate (Amlodipine Besylate 5 Mg Tablet) 5 mg PO DAILY [facility]; Protocol Last Admin: 08/25/24 08:14 Dose: 5 mg Atorvastatin Calcium (Atorvastatin Calcium 20 Mg Tablet) 20 mg PO DAILY [facility] Last Admin: 08/25/24 08:13 Dose: 20 mg Clonazepam (Clonazepam 0.5 Mg Tablet) 0.5 mg PO BEDTIME [facility] Dextrose (Dextrose 50 % 25 Gm/50 Ml Syringe) 25 gm IVPUSH Q15M PRN; Protocol PRN Reason: per Hypoglycemia Standing Ord. Donepezil HCl (Donepezil Hcl 5 Mg Tablet) 5 mg PO BEDTIME [facility] Last Admin: 08/24/24 20:49 Dose: 5 mg Gabapentin (Gabapentin 300 Mg Capsule) 300 mg PO TID [facility] Last Admin: 08/25/24 16:19 Dose: 300 mg Glucose (Glucose Gel 15 Gm Gel..Gram.) 15 gm PO Q15M PRN; Protocol PRN Reason: per Hypoglycemia Standing Ord. Insulin Glargine (Insulin Glargine,Hum.Rec.Anlog 100 Unit/Ml 10 Ml Vial) 30 unit SUBCUT BEDTIME [facility] Last Admin: 08/24/24 20:53 Dose: 30 unit Insulin Human Lispro (Insulin Lispro 100 Unit/Ml 3 Ml Vial) 0 unit SUBCUT QIDACHS [facility]; Protocol Last Admin: 08/25/24 16:22 Dose: Not Given Magnesium Hydroxide (Milk Of Magnesia 30 Ml Oral.Susp) 30 ml PO DAILY PRN PRN Reason: Constipation Melatonin (Melatonin 3 Mg Tablet) 6 mg PO BEDTIME [facility] Last Admin: 08/24/24 20:49 Dose: 6 mg Metoprolol Succinate (Metoprolol Succinate Er 100 Mg Tab.Er.24h) 100 mg PO DAILY [facility]; Protocol Last Admin: 08/25/24 08:13 Dose: 100 mg Risperidone (Risperidone 0.25 Mg Tablet) 0.5 mg PO BID [facility] Last Admin: 08/25/24 08:13 Dose: 0.5 mg Trazodone HCl (Trazodone Hcl 50 Mg Tablet) 50 mg PO BEDTIME PRN PRN Reason: Insomnia Last Admin: 08/23/24 03:01 Dose: 50 mg Venlafaxine HCl (Venlafaxine Hcl Er 150 Mg Cap.Er.24h) 150 mg PO DAILY [facility] Last Admin: 08/25/24 08:13 Dose: 150 mg Vitamin D (Cholecalciferol (Vitamin D3) 25 Mcg Tablet) 50 mcg PO DAILY [facility] Last Admin: 08/25/24 08:14 Dose: 50 mcg Allergies Allergies Allergy/AdvReac Type Severity Reaction Status Date / Time Penicillins Allergy Unknown Unknown Verified 08/17/24 19:55 amitriptyline Allergy Unknown Verified 08/17/24 21:18 Assessment & Plan Assessment & Plan (1) Hallucinations: Status: Acute Code(s): R44.3 - Hallucinations, unspecified Assessment and Plan: suspect related to Lewy Body Dementia (2) Depression: Status: Acute Code(s): F32.A - Depression, unspecified (3) MCI (mild cognitive impairment): Status: Acute Code(s): G31.84 - Mild cognitive impairment of uncertain or unknown etiology Assessment and Plan: MOCA completed scored 23/30 with most impairments in visuospatial, attention and recall. intact orientation, language, abstraction. ACL 5.0 mild cognitive impairments. Plan Mrs. Jonier is a 74 year-old woman with hx of musical hallucinations (may be in context of hearing loss but also present in LBD), newer visual hallucinations of animal, awareness of such hallucinations who presents with no signs of delirium. Constellation of symptoms is concerning for LBD. Moreover, the pattern of cognitive impairment is consistent with early LBD in that visuo spatial, attention and recall are mildly impaired with intact orientation, language and abstraction. will continue current medications. recommend additional OP testing to confirm dx of LBD including DATscan and considering skin biopsy for biomarker for alpha synuclein pathology. 08/23 increase risperidone to 0.5mg po BID see if this has more of an effect on visual hallucinations or if she needs different medications. Noted Vit d is low- start on vit d 50mgc po daily. 08/24 start aricept 5mg po qhs. continue all other medications. 08/25 lower clonazepam to 0.5mg po qhs. Reason for continued inpatient stay Substantial Risk for: inability to function Time Spent With Patient Time: Total time managing care of this patient today ____ minutes.
[2024-08-25] MEDS: Insulin Glargine,Hum.rec.anlog 100 UNIT/ML 10 ML VIAL 30 UNIT SUBCUT (21:07)
[2024-08-26 00:29] LABS: Glucose, Whole Blood 283 mg/dL (60-115)
[2024-08-26 06:55] LABS: Glucose, Whole Blood 62 mg/dL (60-115)
[2024-08-26 08:00] VITALS: BP 154/70; PULSE 85; RESP 18; TEMP 35.7; O2SAT 98
[2024-08-26] MEDS: Metoprolol Succinate ER 100 MG TAB.ER.24H PO (09:04)
[2024-08-26] MEDS: Venlafaxine HCl ER 150 MG CAP.ER.24H PO (09:05)
[2024-08-26 11:35] LABS: Glucose, Whole Blood 183 mg/dL (60-115)
--- NOTE | 2024-08-26 12:36 | P.EN_ITS ---
Event Note Date of Service: 08/26/24 Event Note: GI Consult-Full note dictated. History from patient, her RN, and the EMR. Imp: Dysphagia to solid food for the past several months with intermittent symptoms of esophageal obstruction. Diff dx: Esophageal stricture or ring, Eosinophilic esophagitis, Esophageal mo tility disorder, Esophageal neoplasm Rec:Upper endoscopy with possible balloon dilation for Mon, 08/29. Full consent has been obtained for this, including risks of bleeding and perforation. If that is negative and her symptoms persist she would need an eventual Esophageal motility study. D/W patient in detail and she is comfortable with this plan. Thanks Time Spent With Patient Time: Total time managing care of this patient today ____ minutes.
--- NOTE | 2024-08-26 13:35 | CONS_ITS ---
DATE OF SERVICE: 08/26/2024 REASON FOR CONSULTATION: Dysphagia. HISTORY OF PRESENT ILLNESS: This has been obtained from the patient, her nurse, and the medical record. The patient is a 74-year-old female who was admitted to the psychiatric service for evaluation of some auditory hallucinations. She describes at least several months of persistent episodes of dysphagia to solid food. She describes intermittent episodes of esophageal obstruction for which she has to regurgitate or drink some carbonated beverage to help the food go down. She denies any trouble with liquids. She has been seen by the Speech and Language Department here and they did recommend a GI consultation for evaluation of this issue and possible need for endoscopy. The patient denies any significant heartburn or odynophagia. She enjoys a good appetite. She denies any early satiety, nausea, nor vomiting. She denies any history of ulcer disease. She does describe that her mother and a sister have had trouble with swallowing issues and have needed periodic endoscopies and dilations. The patient has never had an endoscopy. She has never seen a internal communications intern for this issue. She denies any abdominal pain, jaundice, nor unintentional weight loss. She describes some chronic constipation but no sign of bleeding. She describes a colonoscopy many years ago. MEDICATIONS: Here include acetaminophen, amlodipine, atorvastatin, vitamin D, clonazepam, Aricept, Neurontin, insulin, melatonin, metoprolol, risperidone, trazodone, and Effexor. PAST MEDICAL HISTORY: Insulin dependent diabetes mellitus. She denies any history of CA, stroke, lung disease, or kidney disease. She has had multiple surgeries including a bariatric surgery with a gastric bypass, cholecystectomy, back surgeries, knee surgery. Aside from her diabetes and mental health issues. She denies any other medical problems. SOCIAL HISTORY: She is a . She does not smoke nor use any significant amounts of alcohol. Family history as above with both mother and sister having some swallowing issues. REVIEW OF SYSTEMS: CONSTITUTIONAL: She reports that she otherwise feels fairly well with good appetite. CARDIAC: No chest pain. PULMONARY: No coughing or hemoptysis. GI: As above. URINARY: No dysuria, no hematuria. PHYSICAL EXAMINATION: GENERAL: The patient is a pleasant, alert, comfortable-appearing female. SKIN: Warm and dry. Anicteric sclerae. NECK: Supple. There is no lymphadenopathy. CHEST: Clear. CARDIAC: Normal S1, S2. ABDOMEN: Soft, nondistended, nontender. LABORATORIES: Hemoglobin 11.8, MCV 90.8, platelets 228,000, white blood cell count 6.7. Normal electrolytes. BUN 30, creatinine 1.45. LFTs normal except for an AST of 43 and alkaline phosphatase 130. Albumin 4.1. B12, folate, and TSH are normal. However, her B12 was borderline low at 210. IMPRESSION: Given the patient's clinical history, I would recommend upper endoscopy for evaluation of any significant esophageal pathology given her ongoing issues with dysphagia and intermittent esophageal obstructions. It would be important to exclude anything such as an esophageal ring or stricture that would require balloon dilation at that time. Other possibilities would be that of an esophageal dysmotility disorder and esophageal neoplasm. She denies any reflux but might be having some silent reflux causing esophageal spasm and dysphagia on that basis as well. I did recommend she undergo upper endoscopy with possible balloon dilation 1 day next week. Full consent has been obtained from her for this, including risks of bleeding and perforation. If the exam is nonrevealing, I would obtain proximal esophageal biopsies to rule out eosinophilic esophagitis. If the workup is negative and her symptoms persist, she would require an outpatient esophageal motility study. This has all been discussed in detail with the patient and she is comfortable with the plan. Thanks for the consultation. MD YARA Gonzalez/MEME / [id number] MTDD
--- NOTE | 2024-08-26 17:12 | P.PNPSI_ITS ---
Subjective Subjective Date of Service: 08/26/24 Reason For Visit: Delusional Disorder; Depression Unspecified Subjective Notes: Conditional Voluntary Interim History: Pt was very somnolent all day yesterday and slept most of the day. She had difficulty sleeping last night as expected. clonazepam decreased to 0.5mg po qhs, discussed will keep this dose. She reports less visual hallucinations with current medications. She also reports that her mood seems to be improved. She had been less tearful and less depressed. Review of Systems Review of Systems Denies any shortness of breath, chest pain, dizziness, lightheadedness, abdominal pain or discomfort, nausea vomiting or diarrhea Mental Status Exam Mental Status Exam Narrative: Appearance: wearing casual clothing, good hygiene, in NAD Behavior: cooperative Psychomotor: Speech: clear, normal rate/rhtyhm/volume, spontaneous TP: linear TC: disturbed by musical hallucinations, and intermittent visual hallucinations Mood: okay Affect: congruent SI: none HI; none VH/AH: intermittent visual hallucinations of animals and misidentificaiton of moving objects (that are the like a clock) with awareness that others can't see them. music hallucinations. Delusions: no overt delusional content. Insight/judgment: fair x 2. Memory/cog: MOCA completed scored 23/30 with most impairments in visuospatial, attention and recall. intact orientation, language, abstraction. ACL 5.0 mild cognitive impairments. Diagnostics Vital Signs (24Hr): Vital Signs - 24 hr 08/25/24 20:00 08/26/24 08:00 Temperature 98.1 F 96.3 F L Pulse Rate 68 85 Respiratory Rate 18 18 Blood Pressure 172/74 H 154/70 H Pulse Oximetry 99 98 Oxygen Delivery Method Room Air Room Air Labs 08/19/24 07:29 08/22/24 11:33 Labs: Laboratory Results - last 48 hr 08/24/24 08/25/24 08/25/24 20:36 06:31 11:18 POC Glucose 260 H 73 193 H 08/25/24 08/25/24 08/26/24 16:21 19:48 06:37 POC Glucose 125 H 283 H 62 08/26/24 11:32 POC Glucose 183 H Medications Medications Current Medications Acetaminophen (Acetaminophen 325 Mg Tablet) 650 mg PO Q6H PRN PRN Reason: Headache/Pain, Scale 1-10 Last Admin: 08/25/24 08:48 Dose: 650 mg Al Hydroxide/Mg Hydroxide (Magnesium Hydrox/Alum Hydrox 30 Ml Oral.Susp) 30 ml PO Q6H PRN PRN Reason: Heartburn/Nausea Amlodipine Besylate (Amlodipine Besylate 2.5 Mg Tablet) 7.5 mg PO DAILY [facility]; Protocol Last Admin: 08/26/24 09:04 Dose: 7.5 mg Atorvastatin Calcium (Atorvastatin Calcium 20 Mg Tablet) 20 mg PO DAILY [facility] Last Admin: 08/26/24 09:05 Dose: 20 mg Clonazepam (Clonazepam 0.5 Mg Tablet) 0.5 mg PO BEDTIME [facility] Last Admin: 08/25/24 21:04 Dose: 0.5 mg Dextrose (Dextrose 50 % 25 Gm/50 Ml Syringe) 25 gm IVPUSH Q15M PRN; Protocol PRN Reason: per Hypoglycemia Standing Ord. Donepezil HCl (Donepezil Hcl 5 Mg Tablet) 5 mg PO BEDTIME [facility] Last Admin: 08/25/24 21:03 Dose: 5 mg Gabapentin (Gabapentin 300 Mg Capsule) 300 mg PO TID [facility] Last Admin: 08/26/24 15:15 Dose: 300 mg Glucose (Glucose Gel 15 Gm Gel..Gram.) 15 gm PO Q15M PRN; Protocol PRN Reason: per Hypoglycemia Standing Ord. Insulin Glargine (Insulin Glargine,Hum.Rec.Anlog 100 Unit/Ml 10 Ml Vial) 30 unit SUBCUT BEDTIME [facility] Last Admin: 08/25/24 21:07 Dose: 30 unit Insulin Human Lispro (Insulin Lispro 100 Unit/Ml 3 Ml Vial) 0 unit SUBCUT QIDACHS [facility]; Protocol Last Admin: 08/26/24 11:38 Dose: 2 unit Magnesium Hydroxide (Milk Of Magnesia 30 Ml Oral.Susp) 30 ml PO DAILY PRN PRN Reason: Constipation Melatonin (Melatonin 3 Mg Tablet) 6 mg PO BEDTIME [facility] Last Admin: 08/25/24 21:03 Dose: 6 mg Metoprolol Succinate (Metoprolol Succinate Er 100 Mg Tab.Er.24h) 100 mg PO DAILY [facility]; Protocol Last Admin: 08/26/24 09:04 Dose: 100 mg Risperidone (Risperidone 0.25 Mg Tablet) 0.5 mg PO BID [facility] Last Admin: 08/26/24 09:03 Dose: 0.5 mg Trazodone HCl (Trazodone Hcl 50 Mg Tablet) 50 mg PO BEDTIME PRN PRN Reason: Insomnia Last Admin: 08/23/24 03:01 Dose: 50 mg Venlafaxine HCl (Venlafaxine Hcl Er 150 Mg Cap.Er.24h) 150 mg PO DAILY [facility] Last Admin: 08/26/24 09:05 Dose: 150 mg Vitamin D (Cholecalciferol (Vitamin D3) 25 Mcg Tablet) 50 mcg PO DAILY [facility] Last Admin: 08/26/24 09:05 Dose: 50 mcg Allergies Allergies Allergy/AdvReac Type Severity Reaction Status Date / Time Penicillins Allergy Unknown Unknown Verified 08/17/24 19:55 amitriptyline Allergy Unknown Verified 08/17/24 21:18 Assessment & Plan Assessment & Plan (1) Hallucinations: Status: Acute Code(s): R44.3 - Hallucinations, unspecified Assessment and Plan: suspect related to Lewy Body Dementia (2) Depression: Status: Acute Code(s): F32.A - Depression, unspecified (3) MCI (mild cognitive impairment): Status: Acute Code(s): G31.84 - Mild cognitive impairment of uncertain or unknown etiology Assessment and Plan: MOCA completed scored 23/30 with most impairments in visuospatial, attention and recall. intact orientation, language, abstraction. ACL 5.0 mild cognitive impairments. Plan Mrs. Joiner is a 74 year-old woman with hx of musical hallucinations (may be in context of hearing loss but also present in LBD), newer visual hallucinations of animal, awareness of such hallucinations who presents with no signs of delirium. Constellation of symptoms is concerning for LBD. Moreover, the pattern of cognitive impairment is consistent with early LBD in that visuo spatial, attention and recall are mildly impaired with intact orientation, language and abstraction. will continue current medications. recommend additional OP testing to confirm dx of LBD including DATscan and considering skin biopsy for biomarker for alpha synuclein pathology. 08/23 increase risperidone to 0.5mg po BID see if this has more of an effect on visual hallucinations or if she needs different medications. Noted Vit d is low- start on vit d 50mgc po daily. 08/24 start aricept 5mg po qhs. continue all other medications. 08/25 lower clonazepam to 0.5mg po qhs. 08/26 continue tx. Reason for continued inpatient stay Substantial Risk for: inability to function Time Spent With Patient Time: Total time managing care of this patient today ____ minutes.
[2024-08-26 17:13] LABS: Glucose, Whole Blood 174 mg/dL (60-115)
--- NOTE | 2024-08-26 18:34 | MHC.SHP ---
Pre-Procedural Eval Section A - 24 Hr Update-Section A only Date of Service: 08/29/24 The patient is an INPATIENT: Yes The patient has been examined within 24 hours of the surgical procedure. The History & Physical has been completed within 30 days and I have reviewed it.: Yes Section B - Complete if H&P > 30 days Chief Complaint: Delusional Disorder; Depression Unspecified Allergies: Allergies Allergy/AdvReac Type Severity Reaction Status Date / Time Penicillins Allergy Unknown Unknown Verified 08/17/24 19:55 amitriptyline Allergy Unknown Verified 08/17/24 21:18 Plan I have reviewed the history and physical and performed a pertinent physical examination on my patient. No changes have occurred unless specified. Time Spent With Patient Time: Total time managing care of this patient today ____ minutes.
[2024-08-26 19:49] LABS: Glucose, Whole Blood 234 mg/dL (60-115)
[2024-08-26 20:00] VITALS: BP 177/76; PULSE 70; RESP 18; TEMP 36.4; O2SAT 99
[2024-08-26] MEDS: Insulin Glargine,Hum.rec.anlog 100 UNIT/ML 10 ML VIAL 30 UNIT SUBCUT (21:02)
[2024-08-27 06:45] LABS: Glucose, Whole Blood 51 mg/dL (60-115)
[2024-08-27 07:19] LABS: Glucose, Whole Blood 120 mg/dL (60-115)
[2024-08-27 07:55] VITALS: BP 152/73; PULSE 66; RESP 18; TEMP 36.9; O2SAT 100
[2024-08-27] MEDS: Metoprolol Succinate ER 100 MG TAB.ER.24H PO (08:04)
[2024-08-27] MEDS: Venlafaxine HCl ER 150 MG CAP.ER.24H PO (08:04)
[2024-08-27 11:23] LABS: Glucose, Whole Blood 160 mg/dL (60-115)
[2024-08-27 16:38] LABS: Glucose, Whole Blood 112 mg/dL (60-115)
[2024-08-27 19:50] LABS: Glucose, Whole Blood 329 mg/dL (60-115)
[2024-08-27 20:00] VITALS: BP 146/62; PULSE 68; RESP 16; TEMP 36.4; O2SAT 97
[2024-08-27] MEDS: Insulin Glargine,Hum.rec.anlog 100 UNIT/ML 10 ML VIAL 30 UNIT SUBCUT (20:05)
[2024-08-27 21:41] LABS: Glucose, Whole Blood 199 mg/dL (60-115)
--- NOTE | 2024-08-27 23:49 | P.PNPSI_ITS ---
Subjective Subjective Date of Service: 08/27/24 Reason For Visit: Delusional Disorder; Depression Unspecified Subjective Notes: Conditional Voluntary Interim History: Medical record and nursing notes reviewed; case discussed during rounds with team/nursing staff, and met with patient for supportive therapy/psychoeducation, as well as medication management. Per nursing patient slept well, was medication compliant. She is resting in bed after breakfast. Denies safety concerns, but reports seeing visual of a dog on the reflection mirror and on the window shield earlier of today but not at the current time when this provider is assessing her. Poor improving in sleep> reports that she usually hearing noises from the music but it is almost gone. Medication Compliance: Yes Side effects from medications: No Attending Groups: Intermittent Review of Systems Acute medical concerns: No Medical Review of Systems: unchanged Mental Status Exam Mental Status Exam Narrative: Appearance: wearing casual clothing, good hygiene, in NAD Behavior: cooperative, resting in bed Psychomotor: No aggressionor irritability mood Speech: clear, normal rate/rhtyhm/volume, spontaneous TP: linear TC: Denies being disturbed by musical hallucinations, and intermittent visual hallucinations. Seeing vision of a dog in her room. Mood: good Affect: congruent SI: none HI; none VH/AH: Denies music sounds hallucination. Reports seeing vision of a dog in the real fracture and in the window shield Delusions: no overt delusional content. Insight/judgment: fair x 2. Memory/cog: MOCA completed scored 23/30 with most impairments in visuospatial, attention and recall. intact orientation, language, abstraction. ACL 5.0 mild cognitive impairments. Diagnostics Vital Signs (24Hr): Vital Signs - 24 hr 08/27/24 07:55 08/27/24 20:00 Temperature 98.4 F 97.6 F Pulse Rate 66 68 Respiratory Rate 18 16 Blood Pressure 152/73 H 146/62 H Pulse Oximetry 100 97 Oxygen Delivery Method Room Air Room Air Labs 08/19/24 07:29 08/22/24 11:33 Labs: Laboratory Results - last 48 hr 08/25/24 08/26/24 08/26/24 19:48 06:37 11:32 POC Glucose 283 H 62 183 H 08/26/24 08/26/24 08/27/24 17:10 19:44 06:40 POC Glucose 174 H 234 H 51 L* 08/27/24 08/27/24 08/27/24 07:15 11:19 16:28 POC Glucose 120 H 160 H 112 08/27/24 08/27/24 19:43 21:26 POC Glucose 329 H 199 H Medications Medications Current Medications Acetaminophen (Acetaminophen 325 Mg Tablet) 650 mg PO Q6H PRN PRN Reason: Headache/Pain, Scale 1-10 Last Admin: 08/25/24 08:48 Dose: 650 mg Al Hydroxide/Mg Hydroxide (Magnesium Hydrox/Alum Hydrox 30 Ml Oral.Susp) 30 ml PO Q6H PRN PRN Reason: Heartburn/Nausea Amlodipine Besylate (Amlodipine Besylate 2.5 Mg Tablet) 7.5 mg PO DAILY [facility]; Protocol Last Admin: 08/27/24 08:04 Dose: 7.5 mg Atorvastatin Calcium (Atorvastatin Calcium 20 Mg Tablet) 20 mg PO DAILY [facility] Last Admin: 08/27/24 08:04 Dose: 20 mg Clonazepam (Clonazepam 0.5 Mg Tablet) 0.5 mg PO BEDTIME [facility] Last Admin: 08/27/24 21:22 Dose: 0.5 mg Dextrose (Dextrose 50 % 25 Gm/50 Ml Syringe) 25 gm IVPUSH Q15M PRN; Protocol PRN Reason: per Hypoglycemia Standing Ord. Donepezil HCl (Donepezil Hcl 5 Mg Tablet) 5 mg PO BEDTIME [facility] Last Admin: 08/27/24 21:22 Dose: 5 mg Gabapentin (Gabapentin 300 Mg Capsule) 300 mg PO TID [facility] Last Admin: 08/27/24 21:22 Dose: 300 mg Glucose (Glucose Gel 15 Gm Gel..Gram.) 15 gm PO Q15M PRN; Protocol PRN Reason: per Hypoglycemia Standing Ord. Insulin Glargine (Insulin Glargine,Hum.Rec.Anlog 100 Unit/Ml 10 Ml Vial) 30 unit SUBCUT BEDTIME [facility] Last Admin: 08/27/24 20:05 Dose: 30 unit Insulin Human Lispro (Insulin Lispro 100 Unit/Ml 3 Ml Vial) 0 unit SUBCUT QIDACHS [facility]; Protocol Last Admin: 08/27/24 20:07 Dose: 10 unit Magnesium Hydroxide (Milk Of Magnesia 30 Ml Oral.Susp) 30 ml PO DAILY PRN PRN Reason: Constipation Melatonin (Melatonin 3 Mg Tablet) 6 mg PO BEDTIME [facility] Last Admin: 08/27/24 21:22 Dose: 6 mg Metoprolol Succinate (Metoprolol Succinate Er 100 Mg Tab.Er.24h) 100 mg PO DAILY [facility]; Protocol Last Admin: 08/27/24 08:04 Dose: 100 mg Risperidone (Risperidone 0.25 Mg Tablet) 0.5 mg PO BID [facility] Last Admin: 08/27/24 21:22 Dose: 0.5 mg Trazodone HCl (Trazodone Hcl 50 Mg Tablet) 50 mg PO BEDTIME PRN PRN Reason: Insomnia Last Admin: 08/23/24 03:01 Dose: 50 mg Venlafaxine HCl (Venlafaxine Hcl Er 150 Mg Cap.Er.24h) 150 mg PO DAILY [facility] Last Admin: 08/27/24 08:04 Dose: 150 mg Vitamin D (Cholecalciferol (Vitamin D3) 25 Mcg Tablet) 50 mcg PO DAILY [facility] Last Admin: 08/27/24 08:04 Dose: 50 mcg Allergies Allergies Allergy/AdvReac Type Severity Reaction Status Date / Time Penicillins Allergy Unknown Unknown Verified 08/17/24 19:55 amitriptyline Allergy Unknown Verified 08/17/24 21:18 Assessment & Plan Assessment & Plan (1) Hallucinations: Status: Acute Code(s): R44.3 - Hallucinations, unspecified Assessment and Plan: suspect related to Lewy Body Dementia (2) Depression: Status: Acute Code(s): F32.A - Depression, unspecified (3) MCI (mild cognitive impairment): Status: Acute Code(s): G31.84 - Mild cognitive impairment of uncertain or unknown etiology Assessment and Plan: MOCA completed scored 23/30 with most impairments in visuospatial, attention and recall. intact orientation, language, abstraction. ACL 5.0 mild cognitive impairments. Plan Mrs. Joiner is a 74 year-old woman with hx of musical hallucinations (may be in context of hearing loss but also present in LBD), newer visual hallucinations of animal, awareness of such hallucinations who presents with no signs of delirium. Constellation of symptoms is concerning for LBD. Moreover, the pattern of cognitive impairment is consistent with early LBD in that visuo spatial, attention and recall are mildly impaired with intact orientation, language and abstraction. will continue current medications. recommend additional OP testing to confirm dx of LBD including DATscan and considering skin biopsy for biomarker for alpha synuclein pathology. 7/8 increase risperidone to 0.5mg po BID see if this has more of an effect on visual hallucinations or if she needs different medications. Noted Vit d is low- start on vit d 50mgc po daily. 08/24 start aricept 5mg po qhs. continue all other medications. 08/25 lower clonazepam to 0.5mg po qhs. 08/26 continue tx. 08/27/24: Improving in sleep, good appetite, was medication compliant. Denies voices but seeing vision of a dog in her room in the reflection reorder and on the window shield earlier up today. Resting in bed after breakfast, calm cooperative. Denies other safety concerns. Patient educated on: medication risk/benefits and therapeutic strategies Informed Consent: further education needed Reason for continued inpatient stay Substantial Risk for: med/psych decompensation Time Spent With Patient Time: Total time managing care of this patient today ____ minutes.
[2024-08-28 06:51] LABS: Glucose, Whole Blood 55 mg/dL (60-115)
[2024-08-28 07:26] LABS: Glucose, Whole Blood 94 mg/dL (60-115)
[2024-08-28 08:00] VITALS: BP 152/70; PULSE 68; RESP 18; TEMP 36.6; O2SAT 98
[2024-08-28] MEDS: Metoprolol Succinate ER 100 MG TAB.ER.24H PO (08:22)
[2024-08-28] MEDS: Venlafaxine HCl ER 150 MG CAP.ER.24H PO (08:22)
[2024-08-28 11:29] LABS: Glucose, Whole Blood 287 mg/dL (60-115)
--- NOTE | 2024-08-28 14:02 | P.PNPSI_ITS ---
Subjective Subjective Date of Service: 08/28/24 Reason For Visit: Delusional Disorder; Depression Unspecified Subjective Notes: Conditional Voluntary Interim History: Medical record and nursing notes reviewed; case discussed during rounds with team/nursing staff, and met with patient for supportive therapy/psychoeducation, as well as medication management. Reports she slept very well, medication compliant. No side effects. Reports continued to improve in voices and visual hallucinations. Reports no music assess for 2 days and has no vision of the dog today. She is happy and feel legs back to her normal self. , denied depression and anxiety. Blood sugar early this morning was 55. Given juice. Recheck-back to normal. She was at the breakfast table, some trouble swallowing but resolved. She took medication and swallow water fine after Medication Compliance: Yes Side effects from medications: No Attending Groups: Yes Review of Systems Acute medical concerns: No Medical Review of Systems: unchanged Review of Systems Review of Systems Denies any shortness of breath, chest pain, dizziness, lightheadedness, abdominal pain or discomfort, nausea vomiting or diarrhea Mental Status Exam Mental Status Exam Narrative: Appearance: wearing casual clothing, good hygiene, in NAD Behavior: cooperative, caml and pleasant Psychomotor: No aggression or irritability mood Speech: clear, normal rate/rhythm/volume, spontaneous TP: linear TC: Denies being disturbed by musical hallucinations, and intermittent visual hallucinations. No voices x2 days. No VH x1 day. Mood: good Affect: congruent SI: none HI; none VH/AH: Denies music sounds hallucination. Delusions: no overt delusional content. Insight/judgment: fair x 2. Memory/cog: MOCA completed scored 23/30 with most impairments in visuospatial, attention and recall. intact orientation, language, abstraction. ACL 5.0 mild cognitive impairments. Diagnostics Vital Signs (24Hr): Vital Signs - 24 hr 08/27/24 20:00 08/28/24 08:00 Temperature 97.6 F 97.9 F Pulse Rate 68 68 Respiratory Rate 16 18 Blood Pressure 146/62 H 152/70 H Pulse Oximetry 97 98 Oxygen Delivery Method Room Air Room Air Labs 08/19/24 07:29 08/22/24 11:33 Labs: Laboratory Results - last 48 hr 08/26/24 08/26/24 08/27/24 17:10 19:44 06:40 POC Glucose 174 H 234 H 51 L* 08/27/24 08/27/24 08/27/24 07:15 11:19 16:28 POC Glucose 120 H 160 H 112 08/27/24 08/27/24 08/28/24 19:43 21:26 06:46 POC Glucose 329 H 199 H 55 L* 08/28/24 08/28/24 07:22 11:25 POC Glucose 94 287 H Medications Medications Current Medications Acetaminophen (Acetaminophen 325 Mg Tablet) 650 mg PO Q6H PRN PRN Reason: Headache/Pain, Scale 1-10 Last Admin: 08/25/24 08:48 Dose: 650 mg Al Hydroxide/Mg Hydroxide (Magnesium Hydrox/Alum Hydrox 30 Ml Oral.Susp) 30 ml PO Q6H PRN PRN Reason: Heartburn/Nausea Amlodipine Besylate (Amlodipine Besylate 2.5 Mg Tablet) 7.5 mg PO DAILY [facility]; Protocol Last Admin: 08/28/24 08:20 Dose: 7.5 mg Atorvastatin Calcium (Atorvastatin Calcium 20 Mg Tablet) 20 mg PO DAILY [facility] Last Admin: 08/28/24 08:22 Dose: 20 mg Clonazepam (Clonazepam 0.5 Mg Tablet) 0.5 mg PO BEDTIME [facility] Last Admin: 08/27/24 21:22 Dose: 0.5 mg Dextrose (Dextrose 50 % 25 Gm/50 Ml Syringe) 25 gm IVPUSH Q15M PRN; Protocol PRN Reason: per Hypoglycemia Standing Ord. Donepezil HCl (Donepezil Hcl 5 Mg Tablet) 5 mg PO BEDTIME [facility] Last Admin: 08/27/24 21:22 Dose: 5 mg Gabapentin (Gabapentin 300 Mg Capsule) 300 mg PO TID [facility] Last Admin: 08/28/24 08:22 Dose: 300 mg Glucose (Glucose Gel 15 Gm Gel..Gram.) 15 gm PO Q15M PRN; Protocol PRN Reason: per Hypoglycemia Standing Ord. Insulin Glargine (Insulin Glargine,Hum.Rec.Anlog 100 Unit/Ml 10 Ml Vial) 30 unit SUBCUT BEDTIME [facility] Last Admin: 08/27/24 20:05 Dose: 30 unit Insulin Human Lispro (Insulin Lispro 100 Unit/Ml 3 Ml Vial) 0 unit SUBCUT QIDACHS [facility]; Protocol Last Admin: 08/28/24 11:30 Dose: 6 unit Magnesium Hydroxide (Milk Of Magnesia 30 Ml Oral.Susp) 30 ml PO DAILY PRN PRN Reason: Constipation Melatonin (Melatonin 3 Mg Tablet) 6 mg PO BEDTIME [facility] Last Admin: 08/27/24 21:22 Dose: 6 mg Metoprolol Succinate (Metoprolol Succinate Er 100 Mg Tab.Er.24h) 100 mg PO DAILY [facility]; Protocol Last Admin: 08/28/24 08:22 Dose: 100 mg Risperidone (Risperidone 0.25 Mg Tablet) 0.5 mg PO BID [facility] Last Admin: 08/28/24 08:20 Dose: 0.5 mg Trazodone HCl (Trazodone Hcl 50 Mg Tablet) 50 mg PO BEDTIME PRN PRN Reason: Insomnia Last Admin: 08/23/24 03:01 Dose: 50 mg Venlafaxine HCl (Venlafaxine Hcl Er 150 Mg Cap.Er.24h) 150 mg PO DAILY [facility] Last Admin: 08/28/24 08:22 Dose: 150 mg Vitamin D (Cholecalciferol (Vitamin D3) 25 Mcg Tablet) 50 mcg PO DAILY [facility] Last Admin: 08/28/24 08:20 Dose: 50 mcg Allergies Allergies Allergy/AdvReac Type Severity Reaction Status Date / Time Penicillins Allergy Unknown Unknown Verified 08/17/24 19:55 amitriptyline Allergy Unknown Verified 08/17/24 21:18 Assessment & Plan Assessment & Plan (1) Hallucinations: Status: Acute Code(s): R44.3 - Hallucinations, unspecified Assessment and Plan: suspect related to Lewy Body Dementia (2) Depression: Status: Acute Code(s): F32.A - Depression, unspecified (3) MCI (mild cognitive impairment): Status: Acute Code(s): G31.84 - Mild cognitive impairment of uncertain or unknown etiology Assessment and Plan: MOCA completed scored 23/30 with most impairments in visuospatial, attention and recall. intact orientation, language, abstraction. ACL 5.0 mild cognitive impairments. Plan Mrs. Joiner is a 74 year-old woman with hx of musical hallucinations (may be in context of hearing loss but also present in LBD), newer visual hallucinations of animal, awareness of such hallucinations who presents with no signs of delirium. Constellation of symptoms is concerning for LBD. Moreover, the pattern of cognitive impairment is consistent with early LBD in that visuo spatial, attention and recall are mildly impaired with intact orientation, language and abstraction. will continue current medications. recommend additional OP testing to confirm dx of LBD including DATscan and considering skin biopsy for biomarker for alpha synuclein pathology. 08/23 increase risperidone to 0.5mg po BID see if this has more of an effect on visual hallucinations or if she needs different medications. Noted Vit d is low- start on vit d 50mgc po daily. 08/24 start aricept 5mg po qhs. continue all other medications. 08/25 lower clonazepam to 0.5mg po qhs. 08/26 continue tx. 08/27/24: Improving in sleep, good appetite, was medication compliant. Denies voices but seeing vision of a dog in her room in the reflection reorder and on the window shield earlier up today. Resting in bed after breakfast, calm cooperative. Denies other safety concerns 08/28/24: Alert and oriented x4, bright affect, happy, very knowledgeable regarding her hallucination symptoms. No music voices x2 days. No visual hallucination of the dog today which mad her very happy and feel like she is back to her normal life. Continue to monitor for blood sugar, hypoglycemic the this morning with blood sugar of 55. No other safety concerns. Patient educated on: medication risk/benefits and therapeutic strategies Informed Consent: understands Reason for continued inpatient stay Substantial Risk for: med/psych decompensation Time Spent With Patient Time: Total time managing care of this patient today ____ minutes.
[2024-08-28 16:10] LABS: Glucose, Whole Blood 148 mg/dL (60-115)
--- NOTE | 2024-08-28 17:35 | MHC.SHP ---
Pre-Procedural Eval Section A - 24 Hr Update-Section A only Date of Service: 08/28/24 The patient is an INPATIENT: Yes The patient has been examined within 24 hours of the surgical procedure. The History & Physical has been completed within 30 days and I have reviewed it.: Yes Section B - Complete if H&P > 30 days Chief Complaint: Delusional Disorder; Depression Unspecified Allergies: Allergies Allergy/AdvReac Type Severity Reaction Status Date / Time Penicillins Allergy Unknown Unknown Verified 08/17/24 19:55 amitriptyline Allergy Unknown Verified 08/17/24 21:18 Plan I have reviewed the history and physical and performed a pertinent physical examination on my patient. No changes have occurred unless specified. Time Spent With Patient Time: Total time managing care of this patient today ____ minutes.
[2024-08-28 20:00] VITALS: BP 167/70; PULSE 67; RESP 16; TEMP 36.4; O2SAT 98
[2024-08-28 20:55] LABS: Glucose, Whole Blood 223 mg/dL (60-115)
[2024-08-28] MEDS: Insulin Glargine,Hum.rec.anlog 100 UNIT/ML 10 ML VIAL 30 UNIT SUBCUT (23:53)
--- NOTE | 2024-08-29 01:50 | PC.NURSE ---
Pt POC 223,c/o endoscopy procedure this morning, hospitalist Chris notified, insulin coverage held, 15 units instead of 30 units administered per Hospitalist Chris.
[2024-08-29 06:35] LABS: Glucose, Whole Blood 79 mg/dL (60-115)
[2024-08-29 07:08] LABS: Glucose, Whole Blood 115 mg/dL (60-115)
[2024-08-29 09:26] VITALS: BP 143/62; PULSE 65; RESP 16; TEMP 36.3; O2SAT 97
[2024-08-29] MEDS: Venlafaxine HCl ER 150 MG CAP.ER.24H PO (09:28)
[2024-08-29] MEDS: Metoprolol Succinate ER 100 MG TAB.ER.24H PO (09:29)
--- NOTE | 2024-08-29 10:46 | HO.PSYCHPN ---
Subjective Subjective Date of Service: 08/29/24 Reason For Visit: Delusional Disorder; Depression Unspecified Subjective Notes: Conditional Voluntary Interim History: Pt reports poor sleep. RN reports pt slept all night. She reports mood is better, less AH. No SI/HI. She as endoscopy scheduled for today. VS stable. Mental Status Exam Mental Status Exam Narrative: Appearance: wearing casual clothing, good hygiene, in NAD Behavior: cooperative, caml and pleasant Psychomotor: No aggression or irritability mood Speech: clear, normal rate/rhythm/volume, spontaneous TP: linear TC: feeling better Mood: good Affect: congruent SI: none HI; none VH/AH: less musical hallucinations, less VH. Delusions: no overt delusional content. Insight/judgment: fair x 2. Memory/cog: MOCA completed scored 23/30 with most impairments in visuospatial, attention and recall. intact orientation, language, abstraction. ACL 5.0 mild cognitive impairments. Diagnostics Vital Signs (24Hr): Vital Signs - 24 hr 08/28/24 20:00 08/29/24 09:26 Temperature 97.5 F 97.3 F Pulse Rate 67 65 Respiratory Rate 16 16 Blood Pressure 167/70 H 143/62 H Pulse Oximetry 98 97 Oxygen Delivery Method Room Air Room Air Labs 08/19/24 07:29 08/22/24 11:33 Labs: Laboratory Results - last 48 hr 08/27/24 08/27/24 08/27/24 11:19 16:28 19:43 POC Glucose 160 H 112 329 H 08/27/24 08/28/24 08/28/24 21:26 06:46 07:22 POC Glucose 199 H 55 L* 94 08/28/24 08/28/24 08/28/24 11:25 16:06 20:49 POC Glucose 287 H 148 H 223 H 08/29/24 08/29/24 06:29 07:03 POC Glucose 79 115 Medications Medications Current Medications Acetaminophen (Acetaminophen 325 Mg Tablet) 650 mg PO Q6H PRN PRN Reason: Headache/Pain, Scale 1-10 Last Admin: 08/28/24 21:07 Dose: 650 mg Al Hydroxide/Mg Hydroxide (Magnesium Hydrox/Alum Hydrox 30 Ml Oral.Susp) 30 ml PO Q6H PRN PRN Reason: Heartburn/Nausea Amlodipine Besylate (Amlodipine Besylate 2.5 Mg Tablet) 7.5 mg PO DAILY [facility]; Protocol Last Admin: 08/29/24 09:29 Dose: 7.5 mg Atorvastatin Calcium (Atorvastatin Calcium 20 Mg Tablet) 20 mg PO DAILY [facility] Last Admin: 08/29/24 09:28 Dose: 20 mg Clonazepam (Clonazepam 0.5 Mg Tablet) 0.5 mg PO BEDTIME [facility] Last Admin: 08/28/24 21:05 Dose: 0.5 mg Dextrose (Dextrose 50 % 25 Gm/50 Ml Syringe) 25 gm IVPUSH Q15M PRN; Protocol PRN Reason: per Hypoglycemia Standing Ord. Donepezil HCl (Donepezil Hcl 5 Mg Tablet) 5 mg PO BEDTIME [facility] Last Admin: 08/28/24 21:05 Dose: 5 mg Gabapentin (Gabapentin 300 Mg Capsule) 300 mg PO TID [facility] Last Admin: 08/29/24 09:28 Dose: 300 mg Glucose (Glucose Gel 15 Gm Gel..Gram.) 15 gm PO Q15M PRN; Protocol PRN Reason: per Hypoglycemia Standing Ord. Insulin Glargine (Insulin Glargine,Hum.Rec.Anlog 100 Unit/Ml 10 Ml Vial) 30 unit SUBCUT BEDTIME [facility] Last Admin: 08/28/24 23:53 Dose: 15 unit Insulin Human Lispro (Insulin Lispro 100 Unit/Ml 3 Ml Vial) 0 unit SUBCUT QIDACHS [facility]; Protocol Last Admin: 08/29/24 09:27 Dose: Not Given Magnesium Hydroxide (Milk Of Magnesia 30 Ml Oral.Susp) 30 ml PO DAILY PRN PRN Reason: Constipation Melatonin (Melatonin 3 Mg Tablet) 6 mg PO BEDTIME [facility] Last Admin: 08/28/24 21:07 Dose: 6 mg Metoprolol Succinate (Metoprolol Succinate Er 100 Mg Tab.Er.24h) 100 mg PO DAILY [facility]; Protocol Last Admin: 08/29/24 09:29 Dose: 100 mg Risperidone (Risperidone 0.25 Mg Tablet) 0.5 mg PO BID [facility] Last Admin: 08/29/24 09:29 Dose: 0.5 mg Trazodone HCl (Trazodone Hcl 50 Mg Tablet) 50 mg PO BEDTIME PRN PRN Reason: Insomnia Last Admin: 08/28/24 21:15 Dose: 50 mg Venlafaxine HCl (Venlafaxine Hcl Er 150 Mg Cap.Er.24h) 150 mg PO DAILY [facility] Last Admin: 08/29/24 09:28 Dose: 150 mg Vitamin D (Cholecalciferol (Vitamin D3) 25 Mcg Tablet) 50 mcg PO DAILY [facility] Last Admin: 08/29/24 09:28 Dose: 50 mcg Allergies Allergies Allergy/AdvReac Type Severity Reaction Status Date / Time Penicillins Allergy Unknown Unknown Verified 08/17/24 19:55 amitriptyline Allergy Unknown Verified 08/17/24 21:18 Assessment & Plan Assessment & Plan (1) Hallucinations: Status: Acute Code(s): R44.3 - Hallucinations, unspecified Assessment and Plan: suspect related to Lewy Body Dementia (2) Depression: Status: Acute Code(s): F32.A - Depression, unspecified (3) MCI (mild cognitive impairment): Status: Acute Code(s): G31.84 - Mild cognitive impairment of uncertain or unknown etiology Assessment and Plan: MOCA completed scored 23/30 with most impairments in visuospatial, attention and recall. intact orientation, language, abstraction. ACL 5.0 mild cognitive impairments. Plan Mrs. Joiner is a 74 year-old woman with hx of musical hallucinations (may be in context of hearing loss but also present in LBD), newer visual hallucinations of animal, awareness of such hallucinations who presents with no signs of delirium. Constellation of symptoms is concerning for LBD. Moreover, the pattern of cognitive impairment is consistent with early LBD in that visuo spatial, attention and recall are mildly impaired with intact orientation, language and abstraction. will continue current medications. recommend additional OP testing to confirm dx of LBD including DATscan and considering skin biopsy for biomarker for alpha synuclein pathology. 08/23 increase risperidone to 0.5mg po BID see if this has more of an effect on visual hallucinations or if she needs different medications. Noted Vit d is low- start on vit d 50mgc po daily. 08/24 start aricept 5mg po qhs. continue all other medications. 08/25 lower clonazepam to 0.5mg po qhs. 08/26 continue tx. 08/27/24: Improving in sleep, good appetite, was medication compliant. Denies voices but seeing vision of a dog in her room in the reflection reorder and on the window shield earlier up today. Resting in bed after breakfast, calm cooperative. Denies other safety concerns 08/28/24: Alert and oriented x4, bright affect, happy, very knowledgeable regarding her hallucination symptoms. No music voices x2 days. No visual hallucination of the dog today which mad her very happy and feel like she is back to her normal life. Continue to monitor for blood sugar, hypoglycemic the this morning with blood sugar of 55. No other safety concerns. 08/29 continue tx. hypoglycemia, will order hospitalist consult to adjust. Reason for continued inpatient stay Substantial Risk for: inability to function Time Spent With Patient Time: Total time managing care of this patient today ____ minutes.
[2024-08-29 11:35] LABS: Glucose, Whole Blood 65 mg/dL (60-115)
--- NOTE | 2024-08-29 15:08 | MHC.SLORD ---
Speech Language Pathology Order Status: Pt not seen today d/t endoscopy procedure.
[2024-08-29 16:10] VITALS: BP 148/65; PULSE 66; RESP 16; TEMP 36.6; O2SAT 98
[2024-08-29 16:51] LABS: Glucose, Whole Blood 66 mg/dL (60-115)
[2024-08-29 17:06] LABS: Glucose, Whole Blood 129 mg/dL (60-115)
[2024-08-29 20:00] VITALS: BP 148/71; PULSE 71; RESP 18; TEMP 36.6; O2SAT 98
[2024-08-29 21:30] LABS: Glucose, Whole Blood 237 mg/dL (60-115)
[2024-08-29] MEDS: Insulin Glargine,Hum.rec.anlog 100 UNIT/ML 10 ML VIAL 30 UNIT SUBCUT (21:33)
[2024-08-30 06:35] LABS: Glucose, Whole Blood 59 mg/dL (60-115)
[2024-08-30 07:38] LABS: Glucose, Whole Blood 97 mg/dL (60-115)
[2024-08-30 07:50] VITALS: BP 125/62; PULSE 72; RESP 18; TEMP 36.8; O2SAT 98
[2024-08-30] MEDS: Metoprolol Succinate ER 100 MG TAB.ER.24H PO (08:22)
[2024-08-30] MEDS: Venlafaxine HCl ER 150 MG CAP.ER.24H PO (08:25)
--- NOTE | 2024-08-30 10:31 | HO.PM.IMPN ---
Subjective Subjective Date of Service: 08/30/24 Interval History: 74-year-old female with a past medical history of hypertension hyperlipidemia, insulin-dependent diabetes, depression, and chronic lower back pain. She was admitted to [facility] after increase visual and auditory hallucination with the past several weeks and unwitnessed fall. Patient was sent to the hospital after she was found on the floor, reports that she seeing kittens on the floor trying to pick them up. Patient is admitted to the [facility] floor for treatment. She is being seen today for hypoglycemia as well as follow up esophageal dilatation. On exam she is awake and alert, denies any shortness of breath or chest pain. Reports that she feels well this morning, ate breakfast with no evidence of dysphagia.. Her vitals are stable. Patient continues with low blood sugars in the a.m. patient was noted to be getting HS sliding scale which will be DC. We will further decrease Lantus 25 units and continue to monitor for hypoglycemic, add in an HS snack. Patient underwent a esophagogastroduodenoscopy with balloon dilatation of gastroesophageal junction with biopsies without any complications yesterday with Dr. Stanford. Review of Systems Denies any shortness of breath, chest pain, dizziness, lightheadedness, abdominal pain or discomfort, nausea vomiting or diarrhea Physical Exam Vital Signs: Vital Signs: Last Vital Signs Temp 98.3 F 08/30/24 07:50 Pulse 72 08/30/24 07:50 Resp 18 08/30/24 07:50 BP 125/62 08/30/24 07:50 Pulse Ox 98 08/30/24 07:50 O2 Del Method Room Air 08/30/24 07:50 CONST: Alert and oriented, in NAD. Well nourished. Pleasant in no apparent distress HEENT: Normocephalic, atraumatic, MMM, Eyes clear, Neck supple RESP: Lungs clear, RRR even and regular HEART:,RRR, S1, S2. No murmur, no edema GI:Abdomen Soft NT, ND. + BS times four :Deferred SKIN: Warm dry and intact, no visible lesions or rashes NEURO:CN II-XII Intact bilaterally, Sensation intact. Speech clear PSYCH: Normal affect Objective Data Active Medications Acetaminophen (Acetaminophen 325 Mg Tablet) 650 mg PO Q6H PRN PRN Reason: Headache/Pain, Scale 1-10 Last Admin: 08/28/24 21:07 Dose: 650 mg Documented By: GLADYS Al Hydroxide/Mg Hydroxide (Magnesium Hydrox/Alum Hydrox 30 Ml Oral.Susp) 30 ml PO Q6H PRN PRN Reason: Heartburn/Nausea Amlodipine Besylate (Amlodipine Besylate 2.5 Mg Tablet) 7.5 mg PO DAILY [facility]; Protocol Last Admin: 08/30/24 08:17 Dose: 7.5 mg Documented By: SHIRA Atorvastatin Calcium (Atorvastatin Calcium 20 Mg Tablet) 20 mg PO DAILY [facility] Last Admin: 08/30/24 08:18 Dose: 20 mg Documented By: SHIRA Clonazepam (Clonazepam 0.5 Mg Tablet) 0.5 mg PO BEDTIME [facility] Last Admin: 08/29/24 21:20 Dose: 0.5 mg Documented By: KEVIN Dextrose (Dextrose 50 % 25 Gm/50 Ml Syringe) 25 gm IVPUSH Q15M PRN; Protocol PRN Reason: per Hypoglycemia Standing Ord. Donepezil HCl (Donepezil Hcl 5 Mg Tablet) 5 mg PO DAILY@1700 [facility] Last Admin: 08/29/24 16:46 Dose: 5 mg Documented By: SONY Gabapentin (Gabapentin 300 Mg Capsule) 300 mg PO TID [facility] Last Admin: 08/30/24 08:18 Dose: 300 mg Documented By: SHIRA Glucose (Glucose Gel 15 Gm Gel..Gram.) 15 gm PO Q15M PRN; Protocol PRN Reason: per Hypoglycemia Standing Ord. Insulin Glargine (Insulin Glargine,Hum.Rec.Anlog 100 Unit/Ml 10 Ml Vial) 30 unit SUBCUT BEDTIME [facility] Last Admin: 08/29/24 21:33 Dose: 30 unit Documented By: KEVIN Insulin Human Lispro (Insulin Lispro 100 Unit/Ml 3 Ml Vial) 0 unit SUBCUT QIDACHS [facility]; Protocol Last Admin: 08/30/24 08:06 Dose: Not Given Documented By: SHIRA Non-Admin Reason: No Insulin Coverage Magnesium Hydroxide (Milk Of Magnesia 30 Ml Oral.Susp) 30 ml PO DAILY PRN PRN Reason: Constipation Melatonin (Melatonin 3 Mg Tablet) 6 mg PO BEDTIME [facility] Last Admin: 08/29/24 21:19 Dose: 6 mg Documented By: HO.MANLEYK Metoprolol Succinate (Metoprolol Succinate Er 100 Mg Tab.Er.24h) 100 mg PO DAILY [facility]; Protocol Last Admin: 08/30/24 08:22 Dose: 100 mg Documented By: SHIRA Omeprazole (Omeprazole 20 Mg Capsule.) 20 mg PO DAILY@0630 [facility] Polyethylene Glycol (Polyethylene Glycol 3350 17 Gm Powd.Pack) 17 gm PO DAILY PRN PRN Reason: constipation Risperidone (Risperidone 0.25 Mg Tablet) 0.5 mg PO BID [facility] Last Admin: 08/30/24 08:20 Dose: 0.5 mg Documented By: SHIRA Senna/Docusate Sodium (Sennosides/Docusate Sodium Tablet) 1 tab PO BID PRN PRN Reason: Constipation Trazodone HCl (Trazodone Hcl 50 Mg Tablet) 50 mg PO BEDTIME PRN PRN Reason: Insomnia Last Admin: 08/29/24 21:20 Dose: 50 mg Documented By: KEVIN Venlafaxine HCl (Venlafaxine Hcl Er 150 Mg Cap.Er.24h) 150 mg PO DAILY [facility] Last Admin: 08/30/24 08:25 Dose: 150 mg Documented By: SHIRA Vitamin D (Cholecalciferol (Vitamin D3) 25 Mcg Tablet) 50 mcg PO DAILY [facility] Last Admin: 08/30/24 08:20 Dose: 50 mcg Documented By: SHIRA Labs 08/19/24 07:29 08/22/24 11:33 Labs: Laboratory Results - last 24 hr 08/29/24 08/29/24 08/29/24 11:27 16:45 17:03 POC Glucose 65 66 129 H 08/29/24 08/30/24 08/30/24 21:24 06:31 07:34 POC Glucose 237 H 59 L* 97 Assessment and Plan (1) Insulin dependent type 2 diabetes mellitus: Status: Acute (2) Hypoglycemia: Status: Acute (3) Dysphagia: Status: Acute Plan 74-year-old female with past medical history of depression, hyperlipidemia, hypertension, chronic low back pain, insulin-dependent type 2 diabetes admitted to [facility] after she experienced visual auditory hallucinations. Patient is being seen today for hypoglycemia. Dysphagia Patient underwent a procedure yesterday with Dr. Stanford No definitive esophageal structure noted but she is status post balloon dilatation Biopsies were taken for Eosinophilic esophagitis Recommendations to start omeprazole 20 mg daily If dysphagia persists she may need further outpatient studies including esophageal motility study. Insulin-dependent type 2 diabetes with hypoglycemia Patient has had hypoglycemic readings 56-97. Will decrease Lantus to 25 Units at hs. DC HS sliding scale coverage Bedtime snack nightly. Recent A1c 7.3. Lipid panel within normal limits. Continue to monitor and adjust as needed Depression/visual and auditory hallucination Plan per psychiatric team Hypertension/hyperlipidemia Continue Norvasc, Lipitor, and metoprolol 100 mg extended release. Blood pressure is under goal Continue to monitor blood pressures and adjust medications as needed Chronic low back pain Continue gabapentin Thank you for allowing me to participate in the care of this patient. Will follow as needed. Please reconsult of any acute concerns or issues arise Quality Stroke Does the patient have a stroke diagnosis?: No VTE Prior VTE?: No VTE Risk Level:: Medical - low VTE Device Contraindication: Treatment Not Indicated VTE Drug Contraindication: Treatment Not Indicated
[2024-08-30 11:18] LABS: Glucose, Whole Blood 184 mg/dL (60-115)
--- NOTE | 2024-08-30 16:05 | P.PNPSI_ITS ---
Subjective Subjective Date of Service: 08/30/24 Reason For Visit: Delusional Disorder; Depression Unspecified Subjective Notes: Conditional Voluntary Interim History: Pt reports tossing and turning, nursing had reported she slept through the night. encouraged to report to nursing if not sleeping well. She reports mood is better, feeling less depressed. No SI/HI. She reports less visual hallucinations. GI- no signs of esophageal ring or stricter/esophagitis nor ulceration. biopsy taken to r/o easinophilic esophagitis. recommended to follow up GI OP if s/s continue as may need esophageal motility. Review of Systems Review of Systems Denies any shortness of breath, chest pain, dizziness, lightheadedness, abdominal pain or discomfort, nausea vomiting or diarrhea Mental Status Exam Mental Status Exam Narrative: Appearance: wearing casual clothing, good hygiene, in NAD Behavior: cooperative, caml and pleasant Psychomotor: No aggression or irritability mood Speech: clear, normal rate/rhythm/volume, spontaneous TP: linear TC: feeling better Mood: good Affect: congruent SI: none HI; none VH/AH: less musical hallucinations, less VH. Delusions: no overt delusional content. Insight/judgment: fair x 2. Memory/cog: MOCA completed scored 23/30 with most impairments in visuospatial, attention and recall. intact orientation, language, abstraction. ACL 5.0 mild cognitive impairments. Diagnostics Vital Signs (24Hr): Vital Signs - 24 hr 08/29/24 16:10 08/29/24 20:00 08/30/24 07:50 Temperature 97.9 F 97.9 F 98.3 F Pulse Rate 66 71 72 Respiratory Rate 16 18 18 Blood Pressure 148/65 H 148/71 H 125/62 Pulse Oximetry 98 98 98 Oxygen Delivery Method Room Air Room Air Room Air Labs 08/19/24 07:29 08/22/24 11:33 Labs: Laboratory Results - last 48 hr 08/28/24 08/28/24 08/29/24 16:06 20:49 06:29 POC Glucose 148 H 223 H 79 08/29/24 08/29/24 08/29/24 07:03 11:27 16:45 POC Glucose 115 65 66 08/29/24 08/29/24 08/30/24 17:03 21:24 06:31 POC Glucose 129 H 237 H 59 L* 08/30/24 08/30/24 07:34 11:12 POC Glucose 97 184 H Medications Medications Current Medications Acetaminophen (Acetaminophen 325 Mg Tablet) 650 mg PO Q6H PRN PRN Reason: Headache/Pain, Scale 1-10 Last Admin: 08/28/24 21:07 Dose: 650 mg Al Hydroxide/Mg Hydroxide (Magnesium Hydrox/Alum Hydrox 30 Ml Oral.Susp) 30 ml PO Q6H PRN PRN Reason: Heartburn/Nausea Amlodipine Besylate (Amlodipine Besylate 2.5 Mg Tablet) 7.5 mg PO DAILY [facility]; Protocol Last Admin: 08/30/24 08:17 Dose: 7.5 mg Atorvastatin Calcium (Atorvastatin Calcium 20 Mg Tablet) 20 mg PO DAILY [facility] Last Admin: 08/30/24 08:18 Dose: 20 mg Clonazepam (Clonazepam 0.5 Mg Tablet) 0.5 mg PO BEDTIME [facility] Last Admin: 08/29/24 21:20 Dose: 0.5 mg Dextrose (Dextrose 50 % 25 Gm/50 Ml Syringe) 25 gm IVPUSH Q15M PRN; Protocol PRN Reason: per Hypoglycemia Standing Ord. Donepezil HCl (Donepezil Hcl 5 Mg Tablet) 5 mg PO DAILY@1700 [facility] Last Admin: 08/29/24 16:46 Dose: 5 mg Gabapentin (Gabapentin 300 Mg Capsule) 300 mg PO TID [facility] Last Admin: 08/30/24 14:22 Dose: 300 mg Glucose (Glucose Gel 15 Gm Gel..Gram.) 15 gm PO Q15M PRN; Protocol PRN Reason: per Hypoglycemia Standing Ord. Insulin Glargine (Insulin Glargine,Hum.Rec.Anlog 100 Unit/Ml 10 Ml Vial) 25 unit SUBCUT BEDTIME [facility] Insulin Human Lispro (Insulin Lispro 100 Unit/Ml 3 Ml Vial) 0 unit SUBCUT TIDAC [facility]; Protocol Magnesium Hydroxide (Milk Of Magnesia 30 Ml Oral.Susp) 30 ml PO DAILY PRN PRN Reason: Constipation Melatonin (Melatonin 3 Mg Tablet) 6 mg PO BEDTIME [facility] Last Admin: 08/29/24 21:19 Dose: 6 mg Metoprolol Succinate (Metoprolol Succinate Er 100 Mg Tab.Er.24h) 100 mg PO DAILY [facility]; Protocol Last Admin: 08/30/24 08:22 Dose: 100 mg Mirtazapine (Mirtazapine 15 Mg Tablet) 15 mg PO BEDTIME [facility] Omeprazole (Omeprazole 20 Mg Capsule.Dr) 20 mg PO DAILY@0630 [facility] Polyethylene Glycol (Polyethylene Glycol 3350 17 Gm Powd.Pack) 17 gm PO DAILY PRN PRN Reason: constipation Risperidone (Risperidone 0.25 Mg Tablet) 0.5 mg PO BID [facility] Last Admin: 08/30/24 08:20 Dose: 0.5 mg Senna/Docusate Sodium (Sennosides/Docusate Sodium Tablet) 1 tab PO BID PRN PRN Reason: Constipation Trazodone HCl (Trazodone Hcl 50 Mg Tablet) 50 mg PO BEDTIME PRN PRN Reason: Insomnia Last Admin: 08/29/24 21:20 Dose: 50 mg Venlafaxine HCl (Venlafaxine Hcl Er 150 Mg Cap.Er.24h) 150 mg PO DAILY [facility] Last Admin: 08/30/24 08:25 Dose: 150 mg Vitamin D (Cholecalciferol (Vitamin D3) 25 Mcg Tablet) 50 mcg PO DAILY [facility] Last Admin: 08/30/24 08:20 Dose: 50 mcg Allergies Allergies Allergy/AdvReac Type Severity Reaction Status Date / Time Penicillins Allergy Unknown Unknown Verified 08/17/24 19:55 amitriptyline Allergy Unknown Verified 08/17/24 21:18 Assessment & Plan Assessment & Plan (1) Hallucinations: Status: Acute Code(s): R44.3 - Hallucinations, unspecified Assessment and Plan: suspect related to Lewy Body Dementia (2) Depression: Status: Acute Code(s): F32.A - Depression, unspecified (3) MCI (mild cognitive impairment): Status: Acute Code(s): G31.84 - Mild cognitive impairment of uncertain or unknown etiology Assessment and Plan: MOCA completed scored 23/30 with most impairments in visuospatial, attention and recall. intact orientation, language, abstraction. ACL 5.0 mild cognitive impairments. Plan Mrs. Joiner is a 74 year-old woman with hx of musical hallucinations (may be in context of hearing loss but also present in LBD), newer visual hallucinations of animal, awareness of such hallucinations who presents with no signs of delirium. Constellation of symptoms is concerning for LBD. Moreover, the pattern of cognitive impairment is consistent with early LBD in that visuo spatial, attention and recall are mildly impaired with intact orientation, language and abstraction. will continue current medications. recommend additional OP testing to confirm dx of LBD including DATscan and considering skin biopsy for biomarker for alpha synuclein pathology. 08/23 increase risperidone to 0.5mg po BID see if this has more of an effect on visual hallucinations or if she needs different medications. Noted Vit d is low- start on vit d 50mgc po daily. 08/24 start aricept 5mg po qhs. continue all other medications. 08/25 lower clonazepam to 0.5mg po qhs. 08/26 continue tx. 08/27/24: Improving in sleep, good appetite, was medication compliant. Denies voices but seeing vision of a dog in her room in the reflection reorder and on the window shield earlier up today. Resting in bed after breakfast, calm cooperative. Denies other safety concerns 08/28/24: Alert and oriented x4, bright affect, happy, very knowledgeable regarding her hallucination symptoms. No music voices x2 days. No visual hallucination of the dog today which mad her very happy and feel like she is back to her normal life. Continue to monitor for blood sugar, hypoglycemic the this morning with blood sugar of 55. No other safety concerns. 08/29 continue tx. hypoglycemia, will order hospitalist consult to adjust. 08/30 less depressed, less VH. GI endoscopy- no signs of esophageal ring or stricter/esophagitis nor ulceration. biopsy taken to r/o easinophilic esophagitis. recommended to follow up GI OP if s/s continue as may need esophageal motility. started on omeprazole 20mg po daily. Reason for continued inpatient stay Substantial Risk for: inability to function Time Spent With Patient Time: Total time managing care of this patient today ____ minutes.
[2024-08-30 16:14] LABS: Glucose, Whole Blood 161 mg/dL (60-115)
[2024-08-30 20:00] VITALS: BP 152/77; PULSE 69; RESP 16; TEMP 36.8; O2SAT 100
[2024-08-30] MEDS: Insulin Glargine,Hum.rec.anlog 100 UNIT/ML 10 ML VIAL 25 UNIT SUBCUT (20:27)
[2024-08-30 20:36] LABS: Glucose, Whole Blood 233 mg/dL (60-115)
[2024-08-31 06:34] LABS: Glucose, Whole Blood 65 mg/dL (60-115)
[2024-08-31 06:50] LABS: Glucose, Whole Blood 95 mg/dL (60-115)
[2024-08-31 07:55] VITALS: BP 162/80; PULSE 72; RESP 18; TEMP 36.5; O2SAT 96
[2024-08-31] MEDS: Metoprolol Succinate ER 100 MG TAB.ER.24H PO (08:40)
[2024-08-31] MEDS: Venlafaxine HCl ER 150 MG CAP.ER.24H PO (08:40)
[2024-08-31 10:50] VITALS: BMI 35.2
[2024-08-31 11:13] LABS: Glucose, Whole Blood 202 mg/dL (60-115)
--- NOTE | 2024-08-31 15:42 | MHC.SL.SWA ---
Speech Pathologist Impression: Esophageal dysphagia identified by GI Risk of Aspiration Due to: Dysphasia Diet Status: Liquid Consistency and Strategies for Safe Swallow: Liquid Intake Recommendation: Thin Liquid Intake Strategies: Small Sips Solid Food Consistency: Dietary Recommendations: Regular Additional Modifications to Solid Foods: Elect softer food, preferably with sauces or gravies to moisten. Small bites, chew thoroughly, hard swallow, alternate liquids and solids. Oral Medication Intake: Whole with Puree Please contact the pharmacy regarding appropriate crushable or liquid drug formulations that are available whenever modified delivery is recommended. Compensatory Strategies and Precautions to be Taken for Safe Swallow: Sitting Upright (90 deg) Liquids from Cup Liquids from Straw Small Bites and Sips Alternate Liquids/Solids Rate of Ingestion Change Avoid Specific Foods Supervision While Eating and Drinking for Safe Swallow: Intermittent Supervision Foods to Avoid: Dry, hard or difficult to chew solids. Swallowing Recommended Treatments: Compens. Strategy Educat. Recommendation for Speech: Inpatient Speech Therapy Comment: Pt seen for followup PROFESSOR OF VOICE tx. Pt was evaluated by GI, no esophageal stricture identified, question of eosinophilic esophagus, esophageal dysmotility. PROFESSOR OF VOICE reviewed safety precautions and dysphagia management strategies with pt, who verbalized understanding and agreed with recommendations. Pt endorsed using strategies herself, such as slow pacing, alternating consistencies, chewing thoroughly, avoiding certain foods. Pt has been prescribed Omeprazole. PROFESSOR OF VOICE will continue to follow to assure safety in tolerating regular diet. Recommend dental consultation d/t loose fitting dentures that are negatively impacting pt's ability to chew and swallow Frequency/Duration: few visits to ensure toleration of diet Date Range for Service Req: Timeline to reassess: Director Of Quality Improvement Clinican/Clinical Fellow: No Supervisory Statement: I have reviewed and agree with the student/clinical fellow's documentation: N/A Speech Language Pathologist: Katharine Mitchell M.S., [facility]-PROFESSOR OF VOICE
[2024-08-31 16:18] LABS: Glucose, Whole Blood 157 mg/dL (60-115)
--- NOTE | 2024-08-31 16:22 | HO.PSYCHPN ---
Subjective Subjective Date of Service: 08/31/24 Reason For Visit: Delusional Disorder; Depression Unspecified Subjective Notes: Conditional Voluntary Interim History: Pt reports sleeping better last night with remeron. She reports less visual hallucinations. She has been visible on the unit social with peers. GI- no signs of esophageal ring or stricter/esophagitis nor ulceration. biopsy taken to r/o easinophilic esophagitis. recommended to follow up GI OP if s/s continue as may need esophageal motility. Review of Systems Review of Systems Denies any shortness of breath, chest pain, dizziness, lightheadedness, abdominal pain or discomfort, nausea vomiting or diarrhea Mental Status Exam Mental Status Exam Narrative: Appearance: wearing casual clothing, good hygiene, in NAD Behavior: cooperative, caml and pleasant Psychomotor: No aggression or irritability mood Speech: clear, normal rate/rhythm/volume, spontaneous TP: linear TC: feeling better Mood: good Affect: congruent SI: none HI; none VH/AH: less musical hallucinations, less VH. Delusions: no overt delusional content. Insight/judgment: fair x 2. Memory/cog: MOCA completed scored 23/30 with most impairments in visuospatial, attention and recall. intact orientation, language, abstraction. ACL 5.0 mild cognitive impairments. Diagnostics Vital Signs (24Hr): Vital Signs - 24 hr 08/30/24 20:00 08/31/24 07:55 Temperature 98.2 F 97.7 F Pulse Rate 69 72 Respiratory Rate 16 18 Blood Pressure 152/77 H 162/80 H Pulse Oximetry 100 96 Oxygen Delivery Method Room Air Room Air BMI result Body Mass Index 35.2 Labs 08/19/24 07:29 08/22/24 11:33 Labs: Laboratory Results - last 48 hr 08/29/24 08/29/24 08/29/24 16:45 17:03 21:24 POC Glucose 66 129 H 237 H 08/30/24 08/30/24 08/30/24 06:31 07:34 11:12 POC Glucose 59 L* 97 184 H 08/30/24 08/30/24 08/31/24 16:08 20:25 06:23 POC Glucose 161 H 233 H 65 08/31/24 08/31/24 08/31/24 06:43 11:09 16:12 POC Glucose 95 202 H 157 H Medications Medications Current Medications Acetaminophen (Acetaminophen 325 Mg Tablet) 650 mg PO Q6H PRN PRN Reason: Headache/Pain, Scale 1-10 Last Admin: 08/28/24 21:07 Dose: 650 mg Al Hydroxide/Mg Hydroxide (Magnesium Hydrox/Alum Hydrox 30 Ml Oral.Susp) 30 ml PO Q6H PRN PRN Reason: Heartburn/Nausea Amlodipine Besylate (Amlodipine Besylate 2.5 Mg Tablet) 7.5 mg PO DAILY [facility]; Protocol Last Admin: 08/31/24 08:39 Dose: 7.5 mg Atorvastatin Calcium (Atorvastatin Calcium 20 Mg Tablet) 20 mg PO DAILY [facility] Last Admin: 08/31/24 08:40 Dose: 20 mg Clonazepam (Clonazepam 0.5 Mg Tablet) 0.5 mg PO BEDTIME [facility] Last Admin: 08/30/24 19:50 Dose: 0.5 mg Dextrose (Dextrose 50 % 25 Gm/50 Ml Syringe) 25 gm IVPUSH Q15M PRN; Protocol PRN Reason: per Hypoglycemia Standing Ord. Donepezil HCl (Donepezil Hcl 5 Mg Tablet) 5 mg PO DAILY@1700 [facility] Last Admin: 08/30/24 16:18 Dose: 5 mg Gabapentin (Gabapentin 300 Mg Capsule) 300 mg PO TID [facility] Last Admin: 08/31/24 14:39 Dose: 300 mg Glucose (Glucose Gel 15 Gm Gel..Gram.) 15 gm PO Q15M PRN; Protocol PRN Reason: per Hypoglycemia Standing Ord. Insulin Glargine (Insulin Glargine,Hum.Rec.Anlog 100 Unit/Ml 10 Ml Vial) 25 unit SUBCUT BEDTIME [facility] Last Admin: 08/30/24 20:27 Dose: 25 unit Insulin Human Lispro (Insulin Lispro 100 Unit/Ml 3 Ml Vial) 0 unit SUBCUT TIDAC [facility]; Protocol Last Admin: 08/31/24 11:18 Dose: 4 unit Magnesium Hydroxide (Milk Of Magnesia 30 Ml Oral.Susp) 30 ml PO DAILY PRN PRN Reason: Constipation Melatonin (Melatonin 3 Mg Tablet) 6 mg PO BEDTIME [facility] Last Admin: 08/30/24 19:50 Dose: 6 mg Metoprolol Succinate (Metoprolol Succinate Er 100 Mg Tab.Er.24h) 100 mg PO DAILY [facility]; Protocol Last Admin: 08/31/24 08:40 Dose: 100 mg Mirtazapine (Mirtazapine 15 Mg Tablet) 15 mg PO BEDTIME [facility] Last Admin: 08/30/24 19:49 Dose: 15 mg Omeprazole (Omeprazole 20 Mg Capsule.Dr) 20 mg PO DAILY@0630 [facility] Last Admin: 08/31/24 05:53 Dose: 20 mg Polyethylene Glycol (Polyethylene Glycol 3350 17 Gm Powd.Pack) 17 gm PO DAILY PRN PRN Reason: constipation Risperidone (Risperidone 0.25 Mg Tablet) 0.5 mg PO BID [facility] Last Admin: 08/31/24 08:40 Dose: 0.5 mg Senna/Docusate Sodium (Sennosides/Docusate Sodium Tablet) 1 tab PO BID PRN PRN Reason: Constipation Trazodone HCl (Trazodone Hcl 50 Mg Tablet) 50 mg PO BEDTIME PRN PRN Reason: Insomnia Last Admin: 08/29/24 21:20 Dose: 50 mg Venlafaxine HCl (Venlafaxine Hcl Er 150 Mg Cap.Er.24h) 150 mg PO DAILY [facility] Last Admin: 08/31/24 08:40 Dose: 150 mg Vitamin D (Cholecalciferol (Vitamin D3) 25 Mcg Tablet) 50 mcg PO DAILY [facility] Last Admin: 08/31/24 08:39 Dose: 50 mcg Allergies Allergies Allergy/AdvReac Type Severity Reaction Status Date / Time Penicillins Allergy Unknown Unknown Verified 08/17/24 19:55 amitriptyline Allergy Unknown Verified 08/17/24 21:18 Assessment & Plan Assessment & Plan (1) Hallucinations: Status: Acute Code(s): R44.3 - Hallucinations, unspecified Assessment and Plan: suspect related to Lewy Body Dementia (2) Depression: Status: Acute Code(s): F32.A - Depression, unspecified (3) MCI (mild cognitive impairment): Status: Acute Code(s): G31.84 - Mild cognitive impairment of uncertain or unknown etiology Assessment and Plan: MOCA completed scored 23/30 with most impairments in visuospatial, attention and recall. intact orientation, language, abstraction. ACL 5.0 mild cognitive impairments. Plan Mrs. Joiner is a 74 year-old woman with hx of musical hallucinations (may be in context of hearing loss but also present in LBD), newer visual hallucinations of animal, awareness of such hallucinations who presents with no signs of delirium. Constellation of symptoms is concerning for LBD. Moreover, the pattern of cognitive impairment is consistent with early LBD in that visuo spatial, attention and recall are mildly impaired with intact orientation, language and abstraction. will continue current medications. recommend additional OP testing to confirm dx of LBD including DATscan and considering skin biopsy for biomarker for alpha synuclein pathology. 08/23 increase risperidone to 0.5mg po BID see if this has more of an effect on visual hallucinations or if she needs different medications. Noted Vit d is low- start on vit d 50mgc po daily. 08/24 start aricept 5mg po qhs. continue all other medications. 08/25 lower clonazepam to 0.5mg po qhs. 08/26 continue tx. 08/27/24: Improving in sleep, good appetite, was medication compliant. Denies voices but seeing vision of a dog in her room in the reflection reorder and on the window shield earlier up today. Resting in bed after breakfast, calm cooperative. Denies other safety concerns 08/28/24: Alert and oriented x4, bright affect, happy, very knowledgeable regarding her hallucination symptoms. No music voices x2 days. No visual hallucination of the dog today which mad her very happy and feel like she is back to her normal life. Continue to monitor for blood sugar, hypoglycemic the this morning with blood sugar of 55. No other safety concerns. 08/29 continue tx. hypoglycemia, will order hospitalist consult to adjust. 08/30 less depressed, less VH. GI endoscopy- no signs of esophageal ring or stricter/esophagitis nor ulceration. biopsy taken to r/o easinophilic esophagitis. recommended to follow up GI OP if s/s continue as may need esophageal motility. started on omeprazole 20mg po daily. remeron 15mg po qhs. 08/31 continue tx. dc on 09/01/2024 Reason for continued inpatient stay Substantial Risk for: inability to function Time Spent With Patient Time: Total time managing care of this patient today ____ minutes.
[2024-08-31 20:00] VITALS: BP 165/84; PULSE 77; RESP 18; TEMP 36; O2SAT 97
[2024-08-31] MEDS: Insulin Glargine,Hum.rec.anlog 100 UNIT/ML 10 ML VIAL 25 UNIT SUBCUT (20:41)
[2024-08-31 20:52] LABS: Glucose, Whole Blood 216 mg/dL (60-115)
[2024-09-01 06:41] LABS: Glucose, Whole Blood 76 mg/dL (60-115)
[2024-09-01 06:50] VITALS: BMI 37.0
[2024-09-01 08:00] VITALS: BP 162/81; PULSE 68; RESP 18; TEMP 2.6; TEMP 36.7; O2SAT 96
[2024-09-01] MEDS: Venlafaxine HCl ER 150 MG CAP.ER.24H PO (08:11)
[2024-09-01] MEDS: Metoprolol Succinate ER 100 MG TAB.ER.24H PO (08:12)
--- NOTE | 2024-09-01 10:26 | PM.PSYDC ---
DS: Providers Provider Date of Service: 09/01/24 Date of admission: 08/17/24 21:01 Date of discharge: 09/01/24 Primary care physician: Nonstaff Physician Consults: 08/17/24 22:00 Consult to Hospitalist Routine Comment: Consulting Provider: [facility] Hospitalists Reason For Exam: Transfer pt 08/18/24 16:42 Consult to Hospitalist Routine Comment: UTI? increased freq/urge coincides worsening AVH Consulting Provider: [facility] Hospitalists Reason For Exam: UTI? increased freq/urge coincides worsening AVH 08/26/24 09:02 Consult to Gastroenterology Routine Consulting Provider: Donald Stanford Reason for consultation: food trapped upper esophagus Has provider been notified: Yes 08/30/24 09:02 Consult to Hospitalist Routine Comment: Consulting Provider: [facility] Hospitalists Reason For Exam: hypoglycemia Discharging clinician: Nelida Blankenship DS: Diagnosis Discharge Diagnosis (1) Hallucinations: Status: Acute (2) Depression: Status: Acute (3) MCI (mild cognitive impairment): Status: Acute DS: Medications Discharge Medications Home Medications: Home Medications ?Medication ?Instructions ?Recorded ?Confirmed atorvastatin 20 mg tablet 20 mg PO DAILY 08/17/24 08/17/24 metoprolol succinate 100 mg 100 mg PO DAILY 08/17/24 08/17/24 tablet,extended release 24 hr venlafaxine 150 mg 150 mg PO DAILY 08/17/24 08/17/24 capsule,extended release 24 hr Previous Rx's ?Medication ?Instructions ?Recorded amlodipine 2.5 mg tablet 7.5 mg PO DAILY #90 tabs 08/31/24 atorvastatin 20 mg tablet 20 mg PO DAILY #30 tabs 08/31/24 cholecalciferol (vitamin D3) 25 50 mcg (2 x 25 mcg (1,000 unit)) 08/31/24 mcg (1,000 unit) tablet PO DAILY #30 tabs clonazepam 0.5 mg tablet 0.5 mg PO BEDTIME #30 tabs 08/31/24 dextrose 40 % oral gel (Glutose-15) 15 g PO Q15M PRN Per Hypoglycemia 08/31/24 Standing Ord. #112.5 grams donepezil 5 mg tablet 5 mg PO DAILY@1700 #30 tabs 08/31/24 gabapentin 300 mg capsule 300 mg PO TID #90 caps 08/31/24 insulin glargine 100 unit/mL 25 unit (0.25 mL) subcut BEDTIME 08/31/24 subcutaneous solution (Lantus #10 mL U-100 Insulin) melatonin 3 mg tablet 6 mg (2 x 3 mg) PO BEDTIME #60 tabs 08/31/24 metoprolol succinate 100 mg 100 mg PO DAILY #30 tabs 08/31/24 tablet,extended release 24 hr mirtazapine 15 mg tablet 15 mg PO BEDTIME #30 tabs 08/31/24 omeprazole 20 mg capsule,delayed 20 mg PO DAILY@0630 #30 caps 08/31/24 release polyethylene glycol 3350 17 gram 17 g PO DAILY PRN constipation #30 08/31/24 oral powder packet ea risperidone 0.5 mg tablet 0.5 mg PO BID #60 tabs 08/31/24 sennosides 8.6 mg-docusate sodium 1 tab PO BID PRN Constipation #60 08/31/24 50 mg tablet (Senna Plus) tabs venlafaxine 150 mg 150 mg PO DAILY #30 caps 08/31/24 capsule,extended release 24 hr Mental Status Exam Mental Status Exam Narrative: Appearance: wearing casual clothing, good hygiene, in NAD Behavior: cooperative, caml and pleasant Psychomotor: No aggression or irritability mood Speech: clear, normal rate/rhythm/volume, spontaneous TP: linear TC: feeling better Mood: good Affect: congruent SI: none HI; none VH/AH: less musical hallucinations, less VH. Delusions: no overt delusional content. Insight/judgment: fair x 2. Memory/cog: MOCA completed scored 23/30 with most impairments in visuospatial, attention and recall. intact orientation, language, abstraction. ACL 5.0 mild cognitive impairments. Data Data Completed and Pending Completed studies during hospitalization [Text1]: 08/25/24 08/25/24 08/25/24 11:18 16:21 19:48 POC Glucose 193 H 125 H 283 H 08/26/24 08/26/24 08/26/24 06:37 11:32 17:10 POC Glucose 62 183 H 174 H 08/26/24 08/27/24 08/27/24 19:44 06:40 07:15 POC Glucose 234 H 51 L* 120 H 08/27/24 08/27/24 08/27/24 11:19 16:28 19:43 POC Glucose 160 H 112 329 H 08/27/24 08/28/24 08/28/24 21:26 06:46 07:22 POC Glucose 199 H 55 L* 94 08/28/24 08/28/24 08/28/24 11:25 16:06 20:49 POC Glucose 287 H 148 H 223 H 08/29/24 08/29/24 08/29/24 06:29 07:03 11:27 POC Glucose 79 115 65 08/29/24 08/29/24 08/29/24 16:45 17:03 21:24 POC Glucose 66 129 H 237 H 08/30/24 08/30/24 08/30/24 06:31 07:34 11:12 POC Glucose 59 L* 97 184 H 08/30/24 08/30/24 08/31/24 16:08 20:25 06:23 POC Glucose 161 H 233 H 65 08/31/24 08/31/24 08/31/24 06:43 11:09 16:12 POC Glucose 95 202 H 157 H 08/31/24 09/01/24 20:39 06:35 POC Glucose 216 H 76 08/19/24 Unknown Urine clean catch - Clean Catch Midstream Urine Culture - Final 08/18/24 15:45 Urine clean catch - Clean Catch Midstream Urine Culture - Final DS: Summary Hospital Course Hospital Course: Patient is a 74-year-old female with history of AVH who presents for worsening visual hallucinations causing distress. Patient reports that chronically, for the past 5 or so years, she hears music all the time which can be ?bothersome and makes it hard for her to concentrate. For the same duration, Patient also sees various people doing things however this does not bother her and she knows it is just her mind playing tricks on her, that it is not real. This past week, patient had additional hallucinations and says she started seeing kittens in the house even though they do not have a CAT; she then started seeing rats but small ones and dogs that would expand in size. She called in her son who lives with her who said there at all however she did not believe him because she could see 2000 rats-little ones... He wanted her to go to the hospital because he said I was not making sense..and he was worried i had a UTI... (patient endorses increased urinary frequency and urgency and said today she did urinate on herself on the way to the bathroom; denies any urinary discomfort). At the hospital, she continued to see animals but was comforted when staff there said it was not true and she started to agree that perhaps they were hallucinations. Patient said she stopped seeing animals but then at the hospital, in her room saw a girl in my room, talking on the phone and part of her body started to disappear... Than half of her body came back... She was crying on the phone and I thought it was my fault that the girl was gone.. However she said staff again helped her realize this was just her mind playing tricks on her. Patient says that she would like medication if it would help her stop hearing music all the time; she denies any active SI but says sometimes she gets depressed missing her and will sometimes wish she were , though she says this feeling is short-lived. Past Psychiatric History: Denies any history of psychiatric admissions Medical Evaluation Reviewed: Yes (Discussed with hospitalist MIA about starting antibiotics empirically given that patient is symptomatic for UTI, while labs are processing) HOSPITAL COURSE On the unit, pt was admitted on a CV and placed on 15 minutes checks for safety. Pt presented with visual hallucinations of animals and critters on the floor and wall. These visual hallucinations are new for past month or so. She has also been having musical hallucinations, decreased hearing but has not had formal testing for her audition. She did NOT present with s/s of delirium therefore these symptoms nor attributable to UTI or acute medical condition. She presented with series of other symptoms that suggest underlying Lewy Body Dementia including constipation, more frequent falls. No overt tremor no overt autonomic dysfunction nor clear signs of REM sleep behavior disorder. MOCA show pattern often seen in LBD including impairments in visuospatial, attention, and recall with intact language repetition/naming and fluency and intact orientation. Current cognitive impairment is mild. We discussed with family that in order to confirm diagnosis of LBD referral to neurology is needed to complete additional testing including but not limited to Hu scan, skin biopsy for alpha-synuclein marker. We discussed risks, benefits and alternative treatment options. She was started on risperidone which was increased to 0.5mg po BID. She was also started on aricept with understanding that visual hallucinations, especially in LBD are also result of complex process that affects sensory interpretation/processing and not a straight forward psychotic symptoms. In the case of musical hallucinations, underlying cause is most likely changes in audition and correction may improve or resolve musical hallucinations. Certainly with LBD, hearing loss more likely to cause musical hallucinations as decifits in processing sensorial information are impaired. Her affect gradually presented as much brighter. She denied SI/HI. She reported decrease in visual hallucinations and had full awareness that others are not able to see them. No associated delusional content noted. She reported some difficulty sleeping. She had been prescribed temazepam in the community, we switched to clonazepam as pt had reported waking up later at night. She was kept on clonazepam 0.5mg po qhs, higher doses did cause next day over sedation. She continued to report poor sleep, therefore remeron 15mg po qhs was added which seemed to help. She was continued on venlafaxine XR 150mg po daily. She was increasingly more visible on the unit, social with peers. She attended assigned groups. No behavioral concerns. She was eating well. She has had episodes of choking. She was initially seen by speech therapy who witnessed choking event with difficulty at the esophageal level (food apparently trapped in upper esophagus needing food retch back up to clear). She was referred to GI. She had endoscopy which did not show signs of esophageal ring or stricter/esophagitis nor ulceration. biopsy taken to r/o eosinophilic esophagitis. recommended to follow up GI OP if s/s continue as may need esophageal motility. started on omeprazole 20mg po daily. She was also started on Vit D 25mg given vit D levels less than 30. Note elevation in Alkaline phosphatase that may not be related to liver but bone. Status at Discharge Cognitive/behavioral status at discharge: Pt with brighter, non labile affect. No SI/HI. Less VH. Sleeping better. Functional status at discharge: independent ambulation Overall status at discharge: patient is progressing back to baseline Time Spent with Patient Time attestation: Total time managing care of this patient today __45__ minutes. Discharge Plan Discharge Anticipated Discharge Date/Time: 09/01/24 10:16 Patient Disposition: Home, Self-Care Discharge Diagnosis: Hallucinations r/o Lewy Body Disorder Referrals: Misael Dominguez M.D. [Other] - 09/05/24 12:00 pm Referral Note: You will see Dr. Dominguez September 05 at 12:00pm. If you need to cancel or reschedule the appointment please call the number listed. Renetta Null (Psychiatric Nurse Practitioner) [Other] - 09/12/24 1:00 pm Referral Note: You will see Renetta on September 12 at 1:00pm. They ask that you come to the appointment 15 minutes before this to fill out necessary paperwork and bring your insurance card. If you need to cancel or reschedule the appointment please call the number listed. Shelbie Zamudio MD (Neurology) [Other] - 03/13/25 10:30 am Referral Note: Your appointment for will be March 13 2025 at 10:30 AM. This is the earliest appointment they had and you have been put on a cancelation list to be seen earlier if possible. [facility] [Other] - 3-5 Days Referral Note: Aging services will be in contact with you in 3-5 days tp finalize detail for Beti. If you do not receive a call from them please reach put at [facility] number listed. Discharge Medications: New atorvastatin 20 mg Tablet 20 mg PO DAILY Qty: 30 0RF donepezil 5 mg Tablet 5 mg PO DAILY@1700 Qty: 30 0RF clonazepam 0.5 mg Tablet 0.5 mg PO BEDTIME Qty: 30 0RF metoprolol succinate 100 mg Tablet Extended Release 24 Hr 100 mg PO DAILY Qty: 30 0RF Protocol: Hold for SBP/HR < HOLD for SBP < : 90 HOLD for HR < : 60 amlodipine 2.5 mg Tablet 7.5 mg PO DAILY Qty: 90 0RF Protocol: Hold for SBP< HOLD for SBP < : 90 gabapentin 300 mg Capsule 300 mg PO TID Qty: 90 0RF mirtazapine 15 mg Tablet 15 mg PO BEDTIME Qty: 30 0RF insulin glargine [Lantus U-100 Insulin] 100 unit/mL Solution 25 unit subcut BEDTIME Qty: 10 0RF polyethylene glycol 3350 17 gram Powder In Packet 17 g PO DAILY PRN (Reason: constipation) Qty: 30 0RF sennosides-docusate sodium [Senna Plus] 8.6-50 mg Tablet 1 tab PO BID PRN (Reason: Constipation) Qty: 60 0RF dextrose [Glutose-15] 40 % Gel 15 g PO Q15M PRN (Reason: Per Hypoglycemia Standing Ord.) Qty: 112.5 0RF Protocol: Glucose Gel Hypoglycemia Standing Order Protocol Text: For patients able to take PO (patient cooperative and able to swallow). Give Glucose Gel 15 gm PO for Blood Glucose (BG) < 70. Repeat BG every 15 min until BG > 70 x 3, if BG still < 70 and/or patient symptomatic repeat glucose gel or rapid acting carbohydrate. Notify MD if BG does not improve with treatment. venlafaxine 150 mg Capsule,Extended Release 24hr 150 mg PO DAILY Qty: 30 0RF melatonin 3 mg Tablet 6 mg PO BEDTIME Qty: 60 0RF omeprazole 20 mg Capsule,Delayed Release(Dr/Ec) 20 mg PO DAILY@0630 Qty: 30 0RF risperidone 0.5 mg tablet 0.5 mg PO BID Qty: 60 0RF cholecalciferol (vitamin D3) 25 mcg (1,000 unit) Tablet 50 mcg PO DAILY Qty: 30 0RF Continued atorvastatin 20 mg tablet 20 mg PO DAILY metoprolol succinate 100 mg tablet extended release 24 hr 100 mg PO DAILY venlafaxine 150 mg capsule,extended release 24hr 150 mg PO DAILY Discontinued bupropion HCl 150 mg tablet sustained-release 12 hr 150 mg PO BID amlodipine 5 mg tablet 5 mg PO DAILY gabapentin 300 mg capsule 300 mg PO TID triazolam 0.25 mg tablet 0.5 mg PO BEDTIME PRN (Reason: Insomnia) insulin glargine [Lantus Solostar U-100 Insulin] 100 unit/mL (3 mL) insulin pen 40 unit subcut BEDTIME Discharge Orders: Discharge Order (Routine); Ordered 09/01/24 Ordered By: Nelida Blankenship Diet: Diabetic diet Activity on Discharge: As tolerated Stand Alone Forms: Patient Portal Discharge page, Community Support Print Language: Wolof Care Plan Goals: 1. Maintain mood 2. No SI/HI 3. Less VH Health Concerns: Follow up with Neurology to r/o Lewy Body Dementia Follow up with GI- dysphagia. Endoscopy completed here. Follow up with PCP- DM with episodes of hypoglycemia. Plan of Treatment: 1. Take medications as prescribed 2. Go to nearest ED or call 911 in event of emergency Assessment: Pt with brighter, less anxious and depressed mood. No SI/HI. Sleeping better. She is also eating well.Less VH and musical hallucinations.
== END 2024-09-01 11:17 | disposition home or self-care (01) | DRG 881 ==
PROVIDERS: Clinical Nurse Specialist Psychiatric/Mental Health, Adult; Psychiatry & Neurology Psychiatry; Social Worker; Student in an Organized Health Care Education/Training Program; Admitting Provider Psychiatry & Neurology Psychiatry; Visit Provider Psychiatry & Neurology Psychiatry
DX: F32.A Depression, unspecified (principal); G31.83 Neurocognitive disorder with Lewy bodies; F02.80 Dementia in other diseases classified elsewhere, unspecified severity, without behavioral disturbance, psychotic disturbance, mood disturbance, and anxiety; I10 Essential (primary) hypertension; E11.649 Type 2 diabetes mellitus with hypoglycemia without coma; E78.5 Hyperlipidemia, unspecified; M54.50 Low back pain, unspecified; G89.29 Other chronic pain; Z79.4 Long term (current) use of insulin; Z79.899 Other long term (current) drug therapy
CPT/HCPCS: 36415; 80048; 80053; 80061; 81001; 81003; 82306; 82607; 82746; 82947; 83036; 83735; 84439; 84443; 85025; 87086; 92526; 92610; J1610

== ENCOUNTER → 2024-08-17 21:01 | Outpatient (BNV) | payer MEDICARE, SELFPAY | PROVIDERS: Admitting Provider Psychiatry & Neurology Psychiatry; Visit Provider Nurse Practitioner Family | DX: I10 Essential (primary) hypertension (principal) | CPT/HCPCS: 99221; 99232; 99499 ==

== ENCOUNTER → 2024-08-17 21:01 | Outpatient (BNV) | payer MEDICARE, SELFPAY | PROVIDERS: Admitting Provider Psychiatry & Neurology Psychiatry; Visit Provider Psychiatry & Neurology Psychiatry | DX: F32.3 Major depressive disorder, single episode, severe with psychotic features (principal) | CPT/HCPCS: 90792; 99232 ==

== ENCOUNTER → 2024-08-29 12:17 | Day surgery (SDC) | payer MEDICARE, SELFPAY ==
--- OUTSIDE RECORDS SUMMARY | 2024-08-29 11:54 | XMS_ITS | Clinical Summary ---
Author Organization [facility] Address [address] [place] [address] Care Team Providers Care Records Custodian Name Role Phone Misael Dominguez MD Primary Care Provider [phone] Social History Tobacco Use Types Packs/Day Years Used Date Smoking Tobacco: Never Assessed Comments Unknown Sex and Gender Information Value Date Recorded Sex Assigned at Female 03/23/2021 2:44 AM EST Legal Sex Female 2:44 AM EST Gender Identity Not on file Sexual Orientation Not on file Last Filed Vital Signs Vital Sign Reading Time Taken Comments Blood Pressure - - Pulse - - Temperature 36.8 C (98.2 F) 12/31/2019 8:49 PM EST Respiratory Rate 16 12/31/2019 10:5 3 PM EST Oxygen Saturation 98% 12/31/2019 10: 53 PM EST Inhaled Oxygen Concentration - - Weight 79.3 kg (174 lb 13.2 oz) 12/31/2019 8:52 PM EST Height 154 cm (5' 0.63 ) 12/31/2019 8:52 PM EST Body Mass Index 33.44 12/31/2019 8:52 PM EST Plan of Treatment Not on file Care Teams Records Custodian Relationship Specialty Start Date End Date Misael Dominguez MD [address] [address] PCP - General 03/22/21
--- OUTSIDE RECORDS SUMMARY | 2024-08-29 11:54 | XMS_ITS | Clinical Summary ---
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 amLODIPine (NORVASC) 5 mg tablet Take 5 mg by mouth daily. 03/13/2024 Active atorvastatin (LIPITOR) 20 mg tablet Take 20 mg by mouth daily. 11/30/2023 Active buPROPion SR (WELLBUTRIN SR) 150 mg tablet Take 150 mg by mouth 2 times daily. 06/13/2024 Active gabapentin (NEURONTIN) 300 mg capsule Take 300 mg by mouth 3 times daily. 02/24/2024 Active metoprolol succinate XL (TOPROL XL) 100 mg tablet Take 100 mg by mouth daily. 06/12/2024 Active triazolam (HALCION) 0.25 mg tablet Take 0.25 mg by mouth nightly as needed for sleep. 06/17/2024 Active venlafaxine XR (EFFEXOR XR) 150 mg capsule Take 150 mg by mouth daily. 06/12/2024 Active Social History Tobacco Use Types Packs/Day Years Used Date Smoking Tobacco: Never Assessed Comments Unknown Sex and Gender Information Value Date Recorded Sex Assigned at Female 08/16/2024 4:58 AM EDT Legal Sex Female 6:48 PM EDT Gender Identity Female 08/16/2024 4:58 AM EDT Sexual Orientation Not on file Last Filed Vital Signs Vital Sign Reading Time Taken Comments Blood Pressure 131/77 08/17/2024 6:36 PM EDT Pulse 66 08/17/2024 6:36 PM EDT Temperature 36.8 C (98.2 F) 08/17/2024 6:36 PM EDT Respiratory Rate 16 08/17/2024 6:36 PM EDT Oxygen Saturation 100% 08/17/2024 6:36 PM EDT Inhaled Oxygen Concentration - - Weight 81.6 kg (180 lb) 08/16/2024 4:23 PM EDT Height 154.9 cm (5' 1 ) 08/16/2024 4:23 PM EDT Body Mass Index 34.01 08/16/2024 4:23 PM EDT Plan of Treatment Health Maintenance Due Date Last Done Comments 25 Hydroxy / Vitamin D 1950 Cologuard 1950 Colon Cancer Screening 1950 Colonoscopy 1951 FOBT / Fit Test 1950 Hepatitis C Screening 1950 PTH 1951 Phosphorus 1951 Sigmoidoscopy 1950 DTaP,Tdap,and Td Vaccines (1 - Tdap) 06/27/1973 Osteoporosis Screening 06/27/2001 Pneumococcal Vaccine: 50+ Years (1 of 1 - PCV) 06/27/2001 Zoster Vaccines (1 of 2) 06/27/2001 Mammogram 07/07/2018 07/07/2016, 07/07/2016 COVID-19 Vaccine (1 - 2023-2 5 season) 2023 Alcohol/Substance Use Screening 02/17/2024 Depression Screening and Follow-Up 02/17/2024 Health Care Proxy Review 02/17/2024 Social Drivers of Health Annual Screening 02/17/2024 Influenza Vaccine (#1) 2024 Urine Microalbumin 11/29/2024 11/30/2023 Basic Metabolic Panel 02/16/2025 08/16/2024 , 01/02/2024, 11/30/2023 Hemoglobin 08/16/2025 08/16/2024 RSV Vaccine (60+ years old a nd patients) (1 - 1-dose 75+ series) 06/27/2026 Hepatitis B Vaccines Aged Out No long er eligible based on patient's age to complete this topic Procedures * Due to [place] state law, this organization might not be sharing negative HIV tests. Procedure Name Priority Date/Time Associated Diagnosis Comments DRUGS OF ABUSE SCREEN, URINE (AMPH,BONNY,ALYSA,BUP,CO C,FENT,FLORIAN,METH,OPS,O XY) STAT 08/17/2024 10:18 AM EDT MICROSCOPIC URINALYSIS ONLY STAT 08/17/2024 10:18 AM EDT UA/CULTURE REFLEX STAT 08/17/2024 10: 18 AM EDT URINALYSIS W/REFLEX TO MICROSCOPIC & CULTURE STAT 08/17/2024 10:18 AM EDT URINE CULTURE, ROUTINE STAT 10:18 AM EDT MICROSCOPIC URINALYSIS ONLY Routine 08/16/2024 11:17 PM EDT UA/CULTURE REFLEX Routine 08/16/2024 11: 17 PM EDT URINALYSIS W/REFLEX TO MICROSCOPIC & CULTURE Routine 08/16/2024 11:17 PM EDT URINE CULTURE, ROUTINE Routine 11:17 PM EDT T4, FREE STAT 08/16/2024 4:58 AM EDT TSH REFLEX FREE T4 STAT 08/16/2024 4: 58 AM EDT COMPREHENSIVE METABOLIC PANEL STAT 08/16/2024 4:58 AM EDT ECG 12-LEAD STAT 08/16/2024 4:[address] CERVICAL SPINE WO CONTRAST STAT 08/16/2024 4:[address] HEAD WO CONTRAST STAT 08/16/2024 4 :37 AM EDT RAPID COVID-19 RNA FOR SURVEILLANCE (ED ONLY) STAT 08/16/2024 4:36 AM EDT CBC AUTO DIFFERENTIAL STAT 08/16/2024 4:35 AM EDT POCT GLUCOSE Routine 08/16/2024 4:24 AM EDT HEART & VASCULAR - SCANNED 08/16/2024 from Last 3 Months Results * Due to [place] state law, this organization might not be sharing negative HIV tests. * Drugs of Abuse Screen, Urine (08/17/2024 10:18 AM EDT) [facility] Amphetamine Screen, Urine Negative Negative 08/17/2024 4:42 PM EDT [facility] Comment: Detection limit of 1000 ng/mL of d-Methamphetamine. Drug results are to be used only for medical purposes. Unconfirmed screening results must not be used for non-medical purposes. Barbiturate Screen, Urine Negative Negative 08/17/2024 4:42 PM EDT [facility] Comment: Detection limit of 200 ng/mL of Secobarbital. Drug results are to be used only for medical purposes. Unconfirmed screening results must not be used for non-medical purposes. Benzodiazepine Screen, Urine Negative Negative 08/17/2024 4:42 PM EDT [facility] Comment: Detection limit of 200 ng/mL of Nordiazepam. Drug results are to be used only for medical purposes. Unconfirmed screening results must not be used for non-medical purposes. Buprenorphine Screen, Urine Negative Negative 08/17/2024 4:42 PM EDT [facility] Comment: Detection limit of 10 ng/mL of norbuprenorphine. Drug results are to be used only for medical purposes. Unconfirmed screening results must not be used for non-medical purposes. Cocaine Metabolite Screen, Urine Negative Negative 08/17/2024 4:42 PM EDT [facility] Comment: Detection limit of 300 ng/mL of Benzoylecgonine. Drug results are to be used only for medical purposes. Unconfirmed screening results must not be used for non-medical purposes. Marijuana Screen, Urine Negative Negative 08/17/2024 4:42 PM EDT [facility] Comment: Detection limit of 50 ng/mL of 48-Sjo-oetsz-4-YZP-9-carboxylic acid. Drug results are to be used only for medical purposes. Unconfirmed screening results must not be used for non-medical purposes. Methadone Metabolite Screen, Urine Negative Negative 08/17/2024 4:42 PM EDT [facility] Comment: Detection limit of 300 ng/mL of Methadone. Drug results are to be used only for medical purposes. Unconfirmed screening results must not be used for non-medical purposes. Oxycodone Screen, Urine Negative Negative 08/17/2024 4:42 PM EDT [facility] Comment: Detection limit of 100 ng/mL of Oxycodone. Drug results are to be used only for medical purposes. Unconfirmed screening results must not be used for non-medical purposes. Opiate Screen, Urine Negative Negative 08/17/2024 4:42 PM EDT [facility] Comment: Detection limit of 300 ng/mL of Morphine. Drug results are to be used only for medical purposes. Unconfirmed screening results must not be used for non-medical purposes. Fentanyl Screen, Urine Negative Negative 08/17/2024 4:42 PM EDT [facility] Comment: Detection limit of 5 ng/mL of norfentanyl. Drug results are to be used only for medical purposes. Unconfirmed screening results must not be used for non-medical purposes. Urine Urine specimen collection, clean catch / Unknown Non-Blood Collection / Unknown 08/17/2024 10:18 AM EDT 08/17/2024 3:55 PM EDT Alfred Nixon MD LAB URINE ORDERABLES Marleen l Result [facility] [address] [place] [address], [place] * (ABNORMAL) Microscopic Urinalysis Only (08/17/2024 10:18 AM EDT) Only the most recent of2 resultswithin the time period is included. WBC, Urine 18(H) 0 - 2 /HPF [facility] MANUAL 08/17/2024 11:18 AM EDT [facility] RBC, Urine 15(H) 0 - 2 /HPF [facility] MANUAL 08/17/2024 11:18 AM EDT [facility] Bacteria, Urine Occasiona l(A) None /HPF /HPF [place] MANUAL 08/17/2024 11:18 AM EDT [facility] Hyaline Casts, Urine 0 0 - 2 /LPF [place] MANUAL 08/17/2024 11:18 AM EDT [facility] Squamous Epithelial Cells, Urine 2 /HPF [facility] MANUAL 08/17/2024 11:18 AM EDT [facility] Urine Urine specimen collection, clean catch / Unknown Non-Blood Collection / Unknown 08/17/2024 10:18 AM EDT 08/17/2024 10:35 AM EDT Alfred Nixon MD LAB URINE ORDERABLES Marleen l Result [facility] [address] [place] [address], [place] * (ABNORMAL) Urinalysis W/Reflex to Microscopic & Culture (08/17/2024 10:18 AM EDT) Only the most recent of2 resultswithin the time period is included. Color, Urine Yellow Colorless, Light Yellow, Yellow, Dark Yellow 08/17/2024 10:54 AM EDT [facility] Clarity, Urine Clear Clear 08/17/2024 10:54 AM EDT [facility] Specific [place], Urine >1.030(H) <1.030 08/17/2024 10:54 AM EDT [facility] pH, Urine 5.5 5.0 - 8.0 08/17/2024 10:54 AM EDT [facility] Protein, Urine 1+(A) Negative 08/17/2024 10:54 AM EDT [facility] Glucose, Urine Negative Negative 08/17/2024 10:54 AM EDT [facility] Ketones, Urine Negative Negative 08/17/2024 10:54 AM EDT [facility] Bilirubin, Urine Negative Negative 08/17/2024 10:54 AM EDT [facility] Blood, Urine 1+(A) Negative 08/17/2024 10:54 AM EDT [facility] Nitrite, Urine Negative Negative 08/17/2024 10:54 AM EDT [facility] Urobilinogen, Urine 1+(A) Normal 08/17/2024 10:54 AM EDT [facility] Leukocyte Esterase, Urine 2+(A) Negative 08/17/2024 10:54 AM EDT [facility] Urine Urine specimen collection, clean catch / Unknown Non-Blood Collection / Unknown 08/17/2024 10:18 AM EDT 08/17/2024 10:35 AM EDT [facility] - 08/17/2024 10:54 AM EDT Some urinalysis results will not meet the criteria for reflex urine culture although certain urine values may be abnormal. Additional testing can be ordered by the provider if clinically warranted. Alfred Nixon MD LAB URINE ORDERABLES Marleen l Result Performing Organization Address City/[facility]/ZIP Co de Phone Number [facility] [address] [place] [address], [place] * Urine Culture, Routine (08/17/2024 10:18 AM EDT) Only the most recent of2 resultswithin the time period is included. Urine Culture Workup 75,000-10 0,000 CFU/mL [facility] 08/19/2024 1:20 PM EDT [facility] Comment:Mixed Gram positive organisms. Greater than three (3) different colony morphologies with no predominant organism present. Consistent with urogenital contamination at 24 hours. Urine Urine specimen collection, clean catch / Unknown Non-Blood Collection / Unknown 08/17/2024 10:18 AM EDT 08/17/2024 10:37 AM EDT Alfred Nixon MD LAB MICROBIOLOGY - GENERA L ORDERABLES Final Result Performing Organization Address City/[facility] Co de Phone Number [facility] [address] [place] [address], [place] * (ABNORMAL) TSH Reflex Free T4 (08/16/2024 4:58 AM EDT) TSH 4.960(H) 0.280 - 3.890 uIU/mL 08/16/2024 5:48 AM EDT [facility] Comment: Females: 1st trimester 0.150-4.000 IU/mL 2nd trimester 0.310-4.170 IU/mL 3rd trimester 0.380-4.150 IU/mL Blood Structure of peripheral vein / Unknown Venipuncture / Unknown 08/16/2024 4:58 AM EDT 08/16/2024 5:00 AM EDT Juarez Bullock MD LAB BLOOD ORDERABLES Final Re sult Performing Organization Address [facility]/ZIP Co de Phone Number [facility] [address] [place] [address], [place] * T4, Free (08/16/2024 4:58 AM EDT) Free T4 1.17 0.80 - 1.80 ng/dL 08/16/2024 10:08 AM EDT [facility] Comment: Females: (ng/dL) First Trimester 0.95-1.58 ng/dL Second Trimester 0.76-1.24 ng/dL Third Trimester 0.70-1.25 ng/dL Dietary supplements containing biotin may interfere in assays and may skew analyte results to be falsely high. For patients receiving the recommended daily doses of biotin, draw samples at least 8 hours following the last biotin supplementation. For patients on james-doses of biotin supplements, draw samples at least 72 hours following the last biotin supplementation. Effective 2024, Free T4 reference range (>=18 years old) is 0.8 - 1.8 ng/dL, replacing the previous range of 0.93 - 1.70 ng/dL. Blood Structure of peripheral vein / Unknown Venipuncture / Unknown 08/16/2024 4:58 AM EDT 08/16/2024 5:00 AM EDT us Juarez Bullock MD LAB BLOOD ORDERABLES Final Re sult Performing Organization Address [facility]/ZIP Co de Phone Number [facility] [address] [place] [address], [place] * (ABNORMAL) CMP - Comprehensive Metabolic Panel (08/16/2024 4:58 AM EDT) NA 140 135 - 145 mmol/L 08/16/2024 5:48 AM EDT [facility] K 4.8 3.5 - 5.3 mmol/L 08/16/2024 5:48 AM EDT [facility] Cl 107 98 - 107 mmol/L 08/16/2024 5:48 AM EDT [facility] CO2 20(L) 22 - 32 mmol/L 08/16/2024 5:48 AM EDT [facility] Anion Gap 13 5 - 15 08/16/2024 5:48 AM EDT [facility] Glucose 81 65 - 99 mg/dL 08/16/2024 5:48 AM EDT [facility] Creatinine 1.65(H) 0.50 - 1.20 mg/dL 08/16/2024 5:48 AM EDT [facility] Calcium 9.2 8.6 - 10.5 mg/dL 08/16/2024 5:48 AM EDT [facility] Total Protein 7.4 6.0 - 8.0 g/dL 08/16/2024 5:48 AM EDT [facility] Albumin 4.1 3.5 - 5.2 g/dL 08/16/2024 5:48 AM EDT [facility] Bilirubin, Total 0.3 0.2 - 1.2 mg/dL 08/16/2024 5:48 AM EDT [facility] Alkaline Phosphatase 143(H) 35 - 129 U/L 08/16/2024 5:48 AM EDT [facility] AST 24 10 - 40 U/L 08/16/2024 5:48 AM EDT [facility] ALT 13 10 - 40 U/L 08/16/2024 5:48 AM EDT [facility] BUN 23 7 - 23 mg/dL 08/16/2024 5:48 AM EDT [facility] eGFR 33(L) >=60 mL/min/1 .73m2 08/16/2024 5:48 AM EDT [facility] Comment:The estimated glomer ular filtration rate (eGFR) is calculated using a new formula developed by the NKF-ASN task force to eliminate race-based correction factors. The new formula uses serum/plasma creatinine, age, and gender to determine eGFR. A value below 60mls/min might indicate kidney disease and will be flagged. For additional information, see Moshe et al, Am J Kidney Dis. 2021;79(2):268- 288, A Unifying Approach for GFR estimation: Recommendations of the NKF-ASN Task Force on Reassessing the Inclusion of Race in Diagnosing Kidney Disease . Globulin, Total 3.3 2.1 - 4.2 g/dL 08/16/2024 5:48 AM EDT [facility] A/G Ratio 1.2(L) 1.5 - 3.0 08/16/2024 5:48 AM EDT [facility] Blood Structure of peripheral vein / Unknown Venipuncture / Unknown 08/16/2024 4:58 AM EDT 08/16/2024 5:00 AM EDT us Juarez Bullock MD LAB BLOOD ORDERABLES Final Re sult [facility] [address] [place] [address], [place] * ECG 12 lead (08/16/2024 4:49 AM EDT) Ventricular Rate EKG 67 BPM MUSE EKG Atrial Rate 67 BPM MUSE EKG MI Interval 174 ms MUSE EKG QRS Interval 72 ms MUSE EKG QT Interval 384 ms MUSE EKG QTC Interval 405 ms MUSE EKG P [place] 30 degrees MUSE EKG R [place] -14 degrees MUSE EKG T Wave [place] 7 degrees MUSE EKG 08/16/2024 4:49 AM EDT 08/19/2024 12:30 PM EDT Impressions MUSE EKG - 08/20/2024 8:29 AM EDT Normal sinus rhythm Minimal voltage criteria for LVH, may be normal variant ( R in aVL ) Abnormal ECG No previous ECGs available Confirmed by J Luis Amin ([id number]) on 08/19/2024 12:30:18 PM Narrative Procedure Note J Luis Amin MD - 08/20/2024 IMPRESSION: Normal sinus rhythm Minimal voltage criteria for LVH, may be normal variant ( R in aVL ) Abnormal ECG No previous ECGs available Confirmed by J Luis Amin ([id number]) on 08/19/2024 12:30:18 PM us Juarez Bullock MD ECG ORDERABLES Final Result MUSE EKG * CT C-Spine WO Contrast (08/16/2024 4:37 AM EDT) Anatomical Region Laterality Modality Spine, C-spine Computed Tomogra phy 08/16/2024 5:10 AM EDT Impressions 08/16/2024 5:13 AM EDT No acute cervical spine fracture or tracts dilatation. If this radiology report contains a blank impression section, it is an incomplete radiology report. Please contact the interpreting radiologist or applicable radiology division as soon as possible to obtain the completed interpretation. Workstation ID: [id number] Up-to-date CT equipment and radiation dose reduction techniques were employed. CTDIvol: 27.4 - 54.8 mGy. DLP: 1691 mGy-cm. The following accession numbers are related to this dose report [id number]: [id number] Narrative 08/16/2024 5:13 AM EDT COMPARISON: None. FINDINGS: There is no acute fracture. Multilevel cervical spine degenerative changes with straightening of the cervical lordosis, 2 mm retrolisthesis at C5-C6 and 2 mm anterolisthesis at C6-C7. Facet joint alignment is maintained. Vertebral body heights are preserved. No high-grade spinal canal stenosis. The paravertebral soft tissues are unremarkable. There is no pneumothorax in the lung apices. See separately reported head CT for details of intracranial findings. Resulting Agency Comment [id number] Procedure Note Obdulio Martell, DO - 08/16/2024 COMPARISON: None. FINDINGS: There is no acute fracture. Multilevel cervical spine degenerativechanges with straightening of the cervical lordosis, 2 mm retrolisthesisat C5-C6 and 2 mm anterolisthesis at C6-C7. Facet joint alignment ismaintained. Vertebral body heights are preserved. No high-grade spinal canal stenosis. The paravertebral soft tissues are unremarkable. There is no pneumothorax in the lung apices. See separately reported head CT for details of intracranial findings. IMPRESSION: No acute cervical spine fracture or tracts dilatation. If this radiology report contains a blank impression section, it is anincomplete radiology report. Please contact the interpreting radiologistor applicable radiology division as soon as possible to obtain thecompleted interpretation. Workstation ID: [id number] Up-to-date CT equipment and radiation dose reduction techniques wereemployed. CTDIvol: 27.4 - 54.8 mGy. DLP: 1691 mGy-cm. The followingaccession numbers are related to this dose report [id number]: [id number] Juarez Bullock MD IM CT PROCEDURES Final Resul t * CT Head WO Contrast (08/16/2024 4:37 AM EDT) Anatomical Region Laterality Modality Head and Neck Computed Tomogra phy 08/16/2024 5:06 AM EDT Impressions 08/16/2024 5:10 AM EDT No acute intracranial abnormality. If this radiology report contains a blank impression section, it is an incomplete radiology report. Please contact the interpreting radiologist or applicable radiology division as soon as possible to obtain the completed interpretation. Workstation ID: [id number] Up-to-date CT equipment and radiation dose reduction techniques were employed. CTDIvol: 27.4 - 54.8 mGy. DLP: 1691 mGy-cm. The following accession numbers are related to this dose report [id number]: [id number] [facility] 08/16/2024 5:10 AM EDT 3D volume-rendered reconstructions were performed under my concurrent supervision at the acquisition workstation. COMPARISON: None. FINDINGS: There is no evidence of acute intracranial hemorrhage or large territorial infarction. Scattered patchy and confluent low attenuation foci are present in the white matter of both cerebral hemispheres. While nonspecific, these may represent chronic small vessel ischemic changes given the patient's age. There is no mass, mass-effect, midline shift, or extra-axial collection. The ventricles and extra-axial CSF spaces are normal in size and configuration for patient age. No acute calvarial fracture. The included facial bones are intact. There complete opacification of the maxillary sinuses. The remaining paranasal sinuses are essentially clear. The mastoid air cells are clear. Bilateral lens replacement. Resulting Agency Comment [id number] Procedure Note Obdulio MartellMaverick, DO - 08/16/2024 3D volume-rendered reconstructions were performed under my concurrentsupervision at the acquisition workstation. COMPARISON: None. FINDINGS: There is no evidence of acute intracranial hemorrhage or large territorialinfarction. Scattered patchy and confluent low attenuation foci are present in thewhite matter of both cerebral hemispheres. While nonspecific, these mayrepresent chronic small vessel ischemic changes given the patient's age. There is no mass, mass-effect, midline shift, or extra-axial collection. The ventricles and extra-axial CSF spaces are normal in size andconfiguration for patient age. No acute calvarial fracture. The included facial bones are intact. Therecomplete opacification of the maxillary sinuses. The remaining paranasalsinuses are essentially clear. The mastoid air cells are clear. Bilaterallens replacement. IMPRESSION: No acute intracranial abnormality. If this radiology report contains a blank impression section, it is anincomplete radiology report. Please contact the interpreting radiologistor applicable radiology division as soon as possible to obtain thecompleted interpretation. Workstation ID: [id number] Up-to-date CT equipment and radiation dose reduction techniques wereemployed. CTDIvol: 27.4 - 54.8 mGy. DLP: 1691 mGy-cm. The followingaccession numbers are related to this dose report [id number]: [id number] Juarez Bullock MD IMG CT PROCEDURES Final Resul t * Rapid COVID-19 for Surveillance - Psych/Admission (08/16/2024 4:36 AM EDT) PCR, SARS CoV-2 RNA Not Detected Not Detected CEPHEID [employer]EXPERT 08/16/2024 5:08 AM EDT [facility] Comment:A Not Detected (Nega tive) test result is indicative of the absence of SARS-CoV-2 RNA at the level of LoD (Limit of Detection). A negative result does not rule out the possibility of COVID-19 and should not be used as the sole basis for treatment or patient management decisions. If COVID-19 is still suspected, based on exposure history together with other clinical findings, re-testing should be considered. Swab Specimen from nasopharyngeal structure / Unknown Non-Blood Collection / Unknown 08/16/2024 4:36 AM EDT 08/16/2024 4:36 AM EDT Narrative [facility] - 08/16/2024 5:08 AM EDT This test was developed, validated and its performance characteristics determined by [facility]. This test has not been cleared or approved by the U.S. Food and Drug Administration (FDA). FDA Policy for Diagnostic Tests for Coronavirus Disease-2019 during the Public Health Emergency issued May 02, 2019, is followed. Juarez Bullock MD LAB BODY FLUIDS AND STOOLS OR DERABLES Final Result [facility] [address] [place] [address], * CBC Auto Differential (08/16/2024 4:35 AM EDT) WBC 8.2 3.8 - 10.8 10*3/uL 08/16/2024 4:38 AM EDT [facility] RBC 3.93 3.80 - 5.10 10*6/uL 08/16/2024 4:38 AM EDT [facility] Hemoglobin 11.8 11.7 - 15.5 g/dL 08/16/2024 4:38 AM EDT [facility] Hematocrit 35.3 35.0 - 45.0 % 08/16/2024 4:38 AM EDT [facility] MCV 89.8 80.0 - 100.0 fL 08/16/2024 4:38 AM EDT [facility] MCH 30.0 27.0 - 33.0 pg 08/16/2024 4:38 AM EDT [facility] MCHC 33.4 32.0 - 36.0 g/dL 08/16/2024 4:38 AM EDT [facility] RDW 13.2 11.0 - 15.0 % 08/16/2024 4:38 AM EDT [facility] Platelets 305 140 - 400 10*3/uL 08/16/2024 4:38 AM EDT [facility] MPV 10.9 7.5 - 12.5 fL 08/16/2024 4:38 AM EDT [facility] Neutrophil % 66.8 % 08/16/2024 4:38 AM EDT [facility] Immature Grans % 0.4 0.0 - 0.9 % 08/16/2024 4:38 AM EDT [facility] Lymphocyte % 22.1 % 08/16/2024 4:38 AM EDT [facility] Monocyte % 6.4 % 08/16/2024 4:38 AM EDT [facility] Eosinophil % 3.6 % 08/16/2024 4:38 AM EDT [facility] Basophil % 0.7 % 08/16/2024 4:38 AM EDT [facility] Neutrophil # 5.48 1.50 - 7.80 10*3/uL 08/16/2024 4:38 AM EDT [facility] Immature Grans # 0.03 <=0.03 10*3/uL 08/16/2024 4:38 AM EDT [facility] Lymphocyte # 1.80 0.85 - 3.90 10*3/uL 08/16/2024 4:38 AM EDT [facility] Monocyte # 0.50 0.20 - 0.95 10*3/uL 08/16/2024 4:38 AM EDT [facility] Eosinophil # 0.30 0.02 - 0.50 10*3/uL 08/16/2024 4:38 AM EDT [facility] Basophil # 0.10 0.00 - 0.20 10*3/uL 08/16/2024 4:38 AM EDT [facility] nRBC % 0.0 /100 WBCs 08/16/2024 4:38 AM EDT [facility] nRBC # <0.01 <0.01 10*3/uL 08/16/2024 4:38 AM EDT [facility] Blood Structure of peripheral vein / Unknown Venipuncture / Unknown 08/16/2024 4:35 AM EDT 08/16/2024 4:35 AM EDT us Juarez Bullock MD LAB BLOOD ORDERABLES Final Re sult [facility] [address] [place] [address], [place] * POCT Glucose, interfaced (08/16/2024 4:24 AM EDT) [facility] Signature Glucose, POCT 89 70 - 99 mg/dL 08/16/2024 4:40 AM EDT [email or web address] Comment:Glucometer point of care testing platforms using capillary blood are not approved for use in critically ill patients. 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 [address] [id number] [place] [id number] PCP - General Internal Medicine 08/16/24
[2024-08-29 12:29] VITALS: BP 130/44; PULSE 72; RESP 16; TEMP 36.3; O2SAT 98; BMI 35.1
[2024-08-29 12:46] LABS: Glucose, Whole Blood 113 mg/dL (60-115)
[2024-08-29] MEDS: Lactated Ringers 1,000 ML 80 ML IVCONT (12:46)
--- NOTE | 2024-08-29 13:37 | HO.ANESPROP2 ---
HPI - Anesthesia Eval Consult details Narrative: 74-year-old female with a past medical history of hypertension hyperlipidemia, insulin-dependent diabetes, depression, and chronic lower back pain. [facility] Active Problems Active Problems: All Active Problems MCI (mild cognitive impairment) (Acute) Hypoglycemia (Acute) Insulin dependent type 2 diabetes mellitus (Acute) Depression (Acute) Hallucinations (Acute) HTN (hypertension) (Acute) Past Medical History Medical History Depression Hallucinations Family History Family history of problems with anesthesia: No Surgical History History of Problems with Anesthesia: No Social History Social History Household Members: Children Household Members Other:: son and grandchildren Housing: House Do you presently have visiting nurse or other home services: No Patient Tobacco Use Status: Never used Tobacco Second Hand Smoke Exposure: No Use of substances other than those prescribed or required for medical reasons: No Have you been hit, kicked, punched, or otherwise hurt by someone within the past year? If so, by whom?: No Are you DNR?: No Advance Directives: No Advance Directives Information Provided: Yes Advance Directives on File: No Patient : No : No Poor oral hygiene: Yes service: No Sexual orientation: Straight/Heterosexual Meds Allergies Allergy/AdvReac Type Severity Reaction Status Date / Time Penicillins Allergy Unknown Unknown Verified 08/17/24 19:55 amitriptyline Allergy Unknown Verified 08/17/24 21:18 Active Medications: Current Medications Lactated Ringer's (Lr) 1,000 mls @ 80 mls/hr IVCONT .[id number] [facility] Last Admin: 08/29/24 12:46 Dose: 80 mls/hr Home Medications ?Medication ?Instructions ?Recorded ?Confirmed ?Last Taken ?Type amlodipine 5 mg tablet 5 mg PO DAILY 08/17/24 08/17/24 08/16/24 History atorvastatin 20 mg tablet 20 mg PO DAILY 08/17/24 08/17/24 08/16/24 History bupropion HCl 150 mg tablet,12 hr 150 mg PO BID 08/17/24 08/17/24 08/16/24 History sustained-release gabapentin 300 mg capsule 300 mg PO TID 08/17/24 08/17/2425 History insulin glargine 100 unit/mL (3 40 unit subcut BEDTIME 08/17/24 08/17/24 08/16/24 History mL) subcutaneous pen (Lantus Solostar U-100 Insulin) metoprolol succinate 100 mg 100 mg PO DAILY 08/17/24 08/17/24 08/16/24 History tablet,extended release 24 hr triazolam 0.25 mg tablet 0.5 mg PO BEDTIME PRN Insomnia 08/17/24 08/17/24 08/16/24 History venlafaxine 150 mg 150 mg PO DAILY 08/17/24 08/17/24 08/16/24 History capsule,extended release 24 hr Exam Height,Weight and Vital Signs: Height 5 ft Weight 81.64 kg Last Vital Signs Temp 97.4 F 08/29/24 12:29 Pulse 72 08/29/24 12:29 Resp 16 08/29/24 12:29 BP 130/44 L 08/29/24 12:29 Pulse Ox 98 08/29/24 12:29 O2 Del Method Room Air 08/29/24 12:29 Pertinent Lab Results Pertinent Lab Results: Laboratory Tests 08/29/24 12:35 POC Glucose 113 Airway Mallampati Class: II TM Dist: >3cm Neck ROM: Limited Heart: rrr Lungs: cta Assessment and Plan Assessment Anesthesia Assessment: Anesthesia Plan Discussed and Chart Reviewed Final Anesthetic Review Family History of Problems with Anesthesia: No History of Problems with Anesthesia: No NPO: Yes ASA Class: III Final Preanesthetic Review: No Changes in Pt Med Stat, Meds/Allgs Chart Reviewed, Consent Obtained/Reviewed and Anes Risks/Benef Reviewed Patient Risk: Intermediate Procedure Risk: Low Anesthetic Plan Anesthetic Plan: MAC: Disposition: Standard PACU
[2024-08-29 15:10] VITALS: BP 99/45; PULSE 54; RESP 18; TEMP 36.1; O2SAT 97
--- NOTE | 2024-08-29 15:13 | PM.OP ---
Brief Operative Note Date of Service: 08/29/24 Pre-op diagnosis: Dysphagia Post-op diagnosis: other (Small Hiatal hernia, No definitive stricture, R/O EoE) Procedure: EGD with Balloon Dilation 15 to 18mm, and biopsies Surgeon: Donald Stanford MD Anesthesia: MAC Was an Nutritionist Public [employer] used for this Procedure?: No Estimated blood loss (mL): 2.0 Pathology: other (A. Esophagus at 20cm) Condition: stable Disposition: PACU
[2024-08-29 15:25] VITALS: BP 103/46; PULSE 57; RESP 18; O2SAT 99
[2024-08-29 15:40] VITALS: BP 108/49; PULSE 57; RESP 18; O2SAT 95
[2024-08-29 15:55] VITALS: BP 135/65; PULSE 66; RESP 18; TEMP 36.1; O2SAT 96
[2024-08-29 16:33] LABS: Glucose, Whole Blood 56 mg/dL (60-115)
--- NOTE | 2024-08-30 01:45 | OP_ITS ---
DATE OF SERVICE: 08/29/2024 SURGEON: Donald Stanford MD PREOPERATIVE DIAGNOSIS: Dysphagia. POSTOPERATIVE DIAGNOSIS: PROCEDURE PERFORMED: Esophagogastroduodenoscopy with balloon dilation of gastroesophageal junction and biopsies. ESTIMATED BLOOD LOSS: COMPLICATIONS: ANESTHESIA: Medication used; monitored anesthesia care. ASSISTANTS: SPECIMENS: INDICATIONS FOR PROCEDURE: Dysphagia. Full consent obtained from her for this, including risks of bleeding and perforation. POSTOPERATIVE DIAGNOSES: Dysphagia, small hiatal hernia, rule out eosinophilic esophagitis, no definitive esophageal stricture noted, and upper GI anatomy consistent with her reported gastric bypass procedure for weight loss. DESCRIPTION OF PROCEDURE: The patient was placed in the left lateral decubitus position. The Olympus video gastroscope was passed in the posterior oropharynx and upper esophagus under direct vision. The scope was passed slowly to the distal esophagus. The gastroesophageal junction was noted at 35 cm. With insufflation of air, this did appear to open, although there was some sensation of hesitancy as the scope was advanced beyond it. There was no definitive sign of any esophageal ring nor stricture. There was no esophagitis, ulceration, nor any gross evidence of Smith esophagus. The scope did enter the stomach and there was a small hiatal hernia. The anastomosis from her previous gastric bypass was at 40 cm with some retained suture material. The small bowel was cannulated and appeared normal. The anastomosis appeared normal and there was no sign of any ulceration. The gastric remnant appeared normal both in the forward viewing and retroflexed positions. There was no proximal gastric mass nor ulceration. The scope was withdrawn back to the esophagus. Given her symptomatology, I did use a [employer] incremental balloon to dilate the gastroesophageal junction from 15 mm to 18 mm at the recommended pressure for 60 seconds each. Post-dilation, it did seem to be more patent and easier to move the scope past the gastroesophageal junction, but there was no sign of any disruption of the gastroesophageal junction nor any bleeding from the dilation. The scope was withdrawn through the remainder of the esophagus which appeared normal. There were no proximal esophageal rings. Biopsies were obtained at 20 cm to rule out eosinophilic esophagitis. The scope was withdrawn from the patient. She tolerated the procedure well and was returned to the recovery area in stable condition. IMPRESSION: 1. Small hiatal hernia. 2. No definitive esophageal stricture noted but status-post balloon dilation up to 18 mm. 3. Rule out eosinophilic esophagitis. PLAN: The results of the biopsies will be checked. I would recommend starting omeprazole 20 mg daily to treat any component of silent reflux and esophageal spasm. Her diet will be advanced. If the dysphagia persists, she may need further studies including an outpatient esophageal motility study. MD YARA Gonzalez/MEME / [id number] MTDD
== END | disposition home or self-care (01) ==
PROVIDERS: Visit Provider Internal Medicine
PROC: (CPT 43249; principal; 2024-08-29 14:30)
DX: R13.10 Dysphagia, unspecified (principal); K44.9 Diaphragmatic hernia without obstruction or gangrene; Z98.0 Intestinal bypass and anastomosis status; Z98.84 Bariatric surgery status; I10 Essential (primary) hypertension; E78.5 Hyperlipidemia, unspecified; E11.9 Type 2 diabetes mellitus without complications; F32.A Depression, unspecified; R44.3 Hallucinations, unspecified; Z79.4 Long term (current) use of insulin; Z79.899 Other long term (current) drug therapy; Z88.0 Allergy status to penicillin; Z88.8 Allergy status to other drugs, medicaments and biological substances
CPT/HCPCS: 43249; 43239; 82947; 88305; C1726; J2003; J2704